=== PATIENT | male | born 1955 | race Caucasian/White ===

== ENCOUNTER 2016-12-07 06:09 | Inpatient (IN) ==
[2016-12-07] MEDS ORDERED: cefOXitin 2,000 MG in D5% in Water (Mini-Bag+) 100 ML IVPB ONE (06:47)
[2016-12-07] MEDS ORDERED: Albuterol 2.5 MG/3 ML NEBULIZER IH ONE (06:47)
[2016-12-07] MEDS ORDERED: *HR* Heparin 5,000 UNIT/ML VIAL SQ ONE (06:49)
[2016-12-07] MEDS ORDERED: *HR* Propofol 200 MG/20 ML VIAL IVP ONE ×2 (06:51→07:14)
[2016-12-07] MEDS ORDERED: *HR* FentaNYL (PF) 100 MCG/2 ML VIAL ONE ×2 (06:51→07:14)
[2016-12-07] MEDS ORDERED: Dexamethasone 4 MG/ML VIAL ONE (06:51)
[2016-12-07] MEDS ORDERED: *HR* Rocuronium Bromide 50 MG/5 ML VIAL ONE ×2 (06:51→07:14)
[2016-12-07] MEDS ORDERED: Lidocaine -MPF 2% 2 ML VIAL ONE (06:51)
[2016-12-07] MEDS ORDERED: Lidocaine -MPF 4% 5 ML AMPUL ONE (06:51)
[2016-12-07] MEDS ORDERED: Ondansetron 4 MG/2 ML VIAL ONE ×2 (06:51→07:14)
--- NOTE | 2016-12-07 06:59 | Anesthesia Evaluation PreOp ---
Date of Encounter: 12/07/16 Time of Encounter: 07:04 - Past History Planned Operation: Colostomy TReversal Cardiac History: HTN, Hyperlipidemia Pulmonary History: Former smoker (Quit 19 years ago), Asthma, COPD, KATELIN Dx CHILDCARE PROVIDER History: Denies Any Significant HX Other Medical History: Diabetes Type II, GERD, Other (Sigmoid resection for diverticulitis) Anesthesia History: No Prior Anesthetic Complications, Past Anesthesia (Cardiac Cath 2004,GB, R. Knee, Sigmoid colectomy,) Alcohol Use: none Drug use: none Medications and Allergies Albuterol Sulfate [Ventolin Hfa] 2 puff IH Q4H PRN 04/06/16 [History] Tiotropium [Spiriva] 18 mcg IH QAM 04/06/16 [History] Fluticasone Propionate Nasal [Flonase] 1 spr NS DAILY 07/06/16 [History] Multivitamin [One Daily Essential] 1 each PO DAILY 07/06/16 [History] Omeprazole [PriLOSEC] 20 mg PO DAILY 07/06/16 [History] Allergies No Known Allergies Allergy (Verified 07/06/16 07:51) - Meds/Allergy Pre-op Review Medications Reviewed: Yes Allergies Reviewed: Yes Beta Blockers on Current Med List: No Anesthesia Results - Labs Laboratory Tests 04/08/16 11/27/16 11/27/16 03:48 08:20 08:20 WBC 6.3 Hgb 15.2 Hct 46.2 Plt Count 239 INR 1.2 Sodium 144 Potassium 4.1 Chloride 108 Carbon Dioxide 30 H BUN 16 Creatinine 0.94 Stress 2004 no ischemia - Imaging EKG: image reviewed (SR, Poor R wave progression) Anesthesia Exam O2 Sat Height 1.83 m Height 1.83 m Weight 122.47 kg Weight 122.47 kg O2 Sat by Pulse Oximetry 91 Vital Signs Temp Pulse Resp BP Pulse Ox 99.0 F 88 18 134/81 91 L 12/07/16 06:28 12/07/16 06:28 12/07/16 06:28 12/07/16 06:28 12/07/16 06:28 Height: 6' Weight: 270# NPO (# of Hours): > 8 Hrs Pain Scale: 0 Pain Scale Used: Numeric (1 - 10) - HEENT Pupil (Motor): Pupils equal, EOMI Mallampati: II Teeth: Normal Oral Opening: Greater than 3 - CHILDCARE PROVIDER LOC: Oriented CHILDCARE PROVIDER Motor: Normal RUE, Normal LUE, Normal RLE, Normal LLE, Normal Face CHILDCARE PROVIDER Sensory: Normal: RUE, LUE, RLE, LLE, Face - Cardiac Rhythm: Regular Murmur: None JVD: No Carotid Bruit: No - Pulmonary Breath Sounds: bilateral Clear Respiratory Effort: Symmetrical Anesthesia Assess/Plan ASA Score: 3 Modified Stephanie Scale for Level of Consciousness: Cooperative, oriented, and tranquil Anesthetic Plan: General Autologous Blood: Yes Monitoring Plan: Standard Monitors Recovery Plan: PACU
[2016-12-07] MEDS ORDERED: Ringers Solution, Lactated 1,000 ML IVC SCH ×2 (07:00)
[2016-12-07] MEDS ORDERED: *HR* Midazolam HCl 2 MG/2 ML VIAL ONE (07:14)
[2016-12-07] MEDS ORDERED: Ketorolac 30 MG/ML VIAL ONE (07:14)
--- NOTE | 2016-12-07 07:33 | History & Physical Report ---
Date of Encounter: 12/07/16 Time of Encounter: 07:25 24 Hour HP Update - Instructions Instructions: If the History and Physical is less than 30 days old and was completed prior to A.M. admission and or procedure and has NOT been updated on calendar day of procedure please complete this update prior to performing procedure. - Update Patient reports changes in Medical Condition: No Changes in assessment/condition: No Changes in Medication: No Surgery Remains Indicated: Yes Consent for Planned Operative Procedure(s) Verified: Yes - Pre-Operative Checklist Prophylactic Antibiotic Ordered: Yes Home Medications Include Beta Shayy: No Is VTE Prophylaxis Indicated?: Yes
[2016-12-07] MEDS ORDERED: *HR* Promethazine 25 MG/ML VIAL IVP PRN ×2 (08:11→14:21)
[2016-12-07] MEDS ORDERED: *HR* HYDROmorphone (PF) 1 MG/ML SYRINGE IVP PRN (08:11)
[2016-12-07] MEDS ORDERED: Albuterol 2.5 MG/3 ML NEBULIZER IH PRN (08:11)
[2016-12-07] MEDS ORDERED: *HR* HYDROmorphone 2 MG/ML SYRINGE ONE ×2 (08:11→12:32)
[2016-12-07] MEDS ORDERED: Neostigmine Methylsulfate 3 MG/3 ML SYRINGE ONE (09:06)
[2016-12-07] MEDS ORDERED: Albumin Human 5% 25.0 GM/500 ML VIAL ONE (11:54)
--- NOTE | 2016-12-07 13:15 | Operative Note ---
Date of procedure: 12/07/16 Pre-op diagnosis: perforated diverticulitis Post-op diagnosis: same Procedure: Colostomy reversal, takedown splenic flexure Complications: none immediate Anesthesia: FANG Surgeon: Ashanti Fuchs Cart Driver: Nikki Christian Cart Driver Other: Adrian Calderon Estimated blood loss (cc): 200 IV fluids (cc): 3,400 Urine output (cc): 230 Specimen: colostomy, anastomotic rings Condition: stable Disposition: PACU Procedure in Detail: Patient was brought to the operating suite and placed supine on the operating table. Sign in was performed and everyone was in agreement. Anesthesia was induced and patient was endotracheally intubated by anesthesia without incident. An NG tube was placed by anesthesia. The patient was placed in lithotomy position with legs in yellowfin stirrups. Pascual catheter was placed by the circulating nurse. The colostomy opening was suture closed with a 2-0 silk pursestring stitch. The abdomen was prepped and draped in the usual sterile fashion. Timeout was performed again everyone was in agreement. A circular incision through the skin and the subcutaneous tissue around the colostomy was done with a 15 blade. We dissected the colostomy from the subcutaneous tissue down to the fascia circumferentially with the Bovie. The left colon at the colostomy was then from the rectus fascia with the Bovie. We then made a midline incision through the skin and the subcutaneous tissue with a 15 blade along the patient's previous scar. We dissected through the subcutaneous tissue to the anterior abdominal wall linea alba fascia with Bovie. Cultures are placed in either side of the fascia for retraction and the abdomen was entered with the Bovie. Adhesions between the omentum and the small bowel to the anterior abdominal wall were taken down with the Bovie and sharp Metzenbaums. The Bookwalter was placed for retraction. The colostomy where it was still attached at the fascia in several places was taken down with the Bovie and sharp Metzenbaum scissors until the colostomy and left colon was completely within the abdominal cavity. The left colon then was taken down off the left lateral abdominal sidewall at the white line of Toldt with the Bovie. The omentum was taken off the mid to distal transverse colon with the Bovie. We then took down the splenic flexure using gentle blunt dissection and Bovie dissection from a distal to proximal direction up to approximately the middle colic. There was adequate length of the left colon to reach the rectum. The Prolene placed on the rectal stump was identified and a right angle placed on this for retraction. Using the Bovie and a right angle the rectum was freed from the peritoneum with the Bovie and using gentle blunt dissection. Dr. Calderon came in to the OR and further freed up the posterior left lateral rectum and the mesocolic plane. A disposable pursestring stapler device was placed approximately 5 inches from the distal left colon. The distal left colon/ colostomy was then transected with heavy Metzenbaum scissors. Babcocks were placed on the end of the colon for retraction and the colon dilator where placed into the left colon, up to 29 mm. A 29 mm EEA stapler was then chosen to construct the anastomosis and the anvil was placed into the left colon and the pursestring stitch tied. The EEA stapler was placed in the anus into the rectum and the spike deployed. The anvil was then placed on the spike and the anastomosis constructed. Evaluation of the anastomotic rings revealed the rings were in circular continuity with no tears or breaks. The patient was placed in reverse Trendelenburg position and the pelvis filled with sterile saline. The left colon was then clamped with a noncrushing bowel clamp. Using a rigid sigmoidoscope placed in the anus and the distal left colon and rectum at the anastomosis was insufflated. There was leak. The irrigation was suctioned free from the abdomen and we are able to identify a pinhole leak in the left anterior lateral anastomosis. This was oversewn with 2-0 silk interrupted stitches and 3-0 silk Lembert stitches. The pelvis then was filled back with sterile saline covering the anastomosis. A 30 mL balloon Pascual catheter was placed in the anus and insufflated with air, there was no leak present. The air was allowed to be evacuated out of the rectum. The clamp was taken off the left colon. The abdomen was copiously irrigated with sterile saline. A 10 mm JOSE ANGEL drain was placed through the right lower quadrant after first incising the skin with an 11 blade and placed retrograde through the abdominal wall with the tonsil. The JOSE ANGEL drain was secured to the skin with a 2- 0 silk stitch. The JOSE ANGEL drain was placed distal to the anastomosis and anterior to the rectum within the pelvis. The NG tube was palpated to be within appropriate position in the stomach. The omentum was brought down into the pelvis anterior to the anastomosis. Kocur's are placed on the left abdominal wall fascia for retraction. The rectus fascia was reapproximated at the colostomy site with #1 nylon loop PDS running stitch. Kocur's are placed in either side of the linea alba fascia for retraction. The midline abdominal wall was closed with 2 separate non-looped #1 PDS running stitch stitches meeting in the middle. The subcutaneous tissue was copiously irrigated with sterile saline. 3-0 Vicryl stitches were placed subcutaneously to reapproximate the wound. The skin was closed with peter. The colostomy site was copiously irrigated with sterile saline. The subcutaneous tissue was reapproximated with 3-0 Vicryl stitches. Widely placed skin peter were used to close the skin. The middle of the wound was packed with quarter inch iodoform packing. A 4 x 4 gauze and Medipore tape were applied as dressings. A drain sponge was placed at the right lower quadrant JOSE ANGEL drain site. All lap and instrument counts were correct at the end of the case. The patient tolerated the procedure well and was taken to PACU in stable condition after being extubated in the OR by anesthesia. The Pascual catheter and NG tube remained with the patient.
--- NOTE | 2016-12-07 13:42 | Anesthesia Evaluation Post Op ---
Date of Encounter: 12/07/16 Time of Encounter: 13:42 - Vital Signs Vital Signs: Vital Signs/O2 Sat, Most Current Temp Pulse Resp BP Pulse Ox 99.0 F 96 18 153/77 96 12/07/16 06:28 12/07/16 13:38 12/07/16 13:38 12/07/16 13:38 12/07/16 13:38 - Lungs Lungs: Clear Ascult./Percussion - Airway Airway: Non-obstructed - Cardiovascular Regular Rate - Mental Status Mental Status: Alert & Oriented, Answers Appropriately - Pain Pain Scale: 4 Pain Scale used: Numeric (1 - 10) - Nausea Vomiting Nausea Vomiting: Not Present - Hydration Hydration: NPO, Pascual catheter - Discharge PostOp Status: Transfer Patient to floor
[2016-12-07] MEDS ORDERED: Naloxone 0.4 MG/ML INJ IVP PRN (14:21)
[2016-12-07] MEDS ORDERED: Ondansetron 4 MG/2 ML VIAL IVP PRN (14:21)
[2016-12-07] MEDS: Pantoprazole 40 MG VIAL IVP SCH (14:46)
[2016-12-07] MEDS: *HR* HYDROmorphone 20 MG/20 ML PCA IVC PRN (14:46)
[2016-12-07] MEDS: 0.9 % Sodium Chloride 1,000 ML IVC SCH ×2 (14:46→23:25)
[2016-12-07] MEDS: Piperacillin/Tazobactam 3.375 GM in D5% in Water (Mini-Bag+) 100 ML IVPB SCH ×3 (14:49→23:32)
[2016-12-07] MEDS ORDERED: Acetaminophen IV 1,000 MG/100 ML INFUS..BTL IVPB SCH (15:00)
[2016-12-07] MEDS: *HR* Metoprolol 5 MG/5 ML VIAL IVP SCH (18:00)
[2016-12-07] MEDS: Acetaminophen IV 1,000 MG/100 ML INFUS..BTL IVPB SCH (21:11)
[2016-12-08] MEDS: *HR* Metoprolol 5 MG/5 ML VIAL IVP SCH ×5 (00:12→23:55)
[2016-12-08 05:06] LABS: Basophils % 0.1 %; Hematocrit 42.4 % (37.5-50.1); Hemoglobin 14.6 g/dL (12.9-16.9); Immature Granulocytes % 0.6 % (0-4); Lymphocytes # 1.6 K/mcL (0.6-4.6); Lymphocytes % 10.3 %; Mean Corpuscular HGB Conc 34.4 g/dL (31.6-35.5); Mean Corpuscular Hemoglobin 32.3 pg (28.0-33.3); Mean Corpuscular Volume 93.8 fL (83.0-100.0); Mean Platelet Volume 10.8 fL (9.4-12.4); Monocytes # 1.4 K/mcL (0.0-1.3); Monocytes % 9.2 %; Neutrophils # 12.1 K/mcL (1.6-8.9); Platelet Count 207 K/mcL (140-400); Red Blood Count 4.52 M/mcL (4.19-5.50); Red Cell Distribution Width 12.4 % (11.5-14.5); Segmented Neutrophils % 79.8 %
[2016-12-08 05:21] LABS: BUN/Creatinine Ratio 18 (6-26); Blood Urea Nitrogen 16 mg/dL (8-26); Calcium 8.4 mg/dL (8.6-10.8); Carbon Dioxide 21 mEq/L (19-29); Chloride 109 mEq/L (98-109); Glucose 139 mg/dL (70-99); Magnesium 1.9 mg/dL (1.6-2.6); Osmolality,Calculated 291 (280-300); Phosphorous 2.8 mg/dL (2.3-4.7); Potassium 4.2 mEq/L (3.5-4.5); Sodium 139 mEq/L (136-145); eGFR For African Americans > 60 (> 60); eGFR For Non-African Americans > 60 (> 60)
[2016-12-08] MEDS: 0.9 % Sodium Chloride 1,000 ML IVC SCH ×2 (07:48→15:22)
[2016-12-08] MEDS: Pantoprazole 40 MG VIAL IVP SCH (07:48)
[2016-12-08] MEDS: Piperacillin/Tazobactam 3.375 GM in D5% in Water (Mini-Bag+) 100 ML IVPB SCH (07:50)
--- NOTE | 2016-12-08 08:52 | General Surgery Progress Note ---
<Deniz Nixon - Last Filed: 12/08/16 11:43> Date of Encounter: 12/08/16 Time of Encounter: 07:20 - Assessment and Plan (1) S/P colostomy takedown Current Visit: Yes Status: Acute S/p Colostomy takedown 12/07/[address] Fuchs. NPO except ice chips until bowl function returns. Continue scheduled acetaminophen. 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 Continue Zosyn Continue IV fluids at 120ml/hr until patient taking by mouth We will continue to monitor patient's vitals and labs. Discontinue hope catheter Increase activity as tolerated Daily wound care (2) Diverticulosis Current Visit: Yes Status: Chronic History of diverticulitis with perforation in March 2016. s/p Ki's procedure at that time, underwent colostomy take down yesterday by Dr. Fuchs. (3) Leukocytosis Current Visit: No Status: Acute WBC 15.2. Continue Zosyn. Repeat labs in the am Qualifiers: Leukocytosis type: unspecified Qualified Code(s): D72.829 - Elevated white blood cell count, unspecified (4) COPD (chronic obstructive pulmonary disease) Current Visit: No Status: Chronic Continue spiriva. Qualifiers: COPD type: unspecified COPD Qualified Code(s): J44.9 - Chronic obstructive pulmonary disease, unspecified (5) Gastroesophageal reflux disease Current Visit: No Status: Chronic Continue Protonix 40mg IVP daily. Qualifiers: Esophagitis presence: esophagitis presence not specified Qualified Code(s) : K21.9 - Gastro-esophageal reflux disease without esophagitis (6) Hypertension Current Visit: No Status: Chronic BP controlled at this time Continue Lopressor 2.5mg Q6H. Hydralazine prn. No home medication listed for hypertension. Qualifiers: Hypertension type: essential hypertension (7) DVT prophylaxis Current Visit: No Status: Acute Start heparin 5,000 units SQ twice daily for DVT prophylaxis Subjective Patient reports: no new complaints, feels better, still having pain (post-op), no flatus, no bowel movement, afebrile Objective Vital Signs - Last 8 Hours Temp Pulse Resp BP Pulse Ox 12/08/16 07:53 95 12/08/16 06:53 98.6 F 84 16 126/75 95 12/08/16 04:14 98.7 F 88 16 147/77 95 Intake and Output 12/07/16 12/08/16 12/08/16 23:59 07:59 15:59 Intake Total 1100 / 1100 1100 / 1100 Output Total 370 / 370 510 / 510 Balance 730 / 730 590 / 590 Intake: IV Fluids 1100 / 1100 1100 / 1100 0.9 % Sodium Chloride 1, 1000 / 1000 1000 / 1000 000 ML @ 120 mls/hr IVC . Q8H20M NENA Rx#:[id number] Zosyn 3.375 GM In 100 / 100 100 / 100 Dextrose 5% (Minibag+) 100 ML 100 ML @ 25 mls/hr IVPB Q8HR NENA Rx#: [id number] Oral 0 / 0 0 / 0 Output: Catheter 350 / 350 450 / 450 Gastric Drainage 0 / 0 Wound Drainage 20 / 20 60 / 60 Right Abdomen 20 / 20 60 / 60 Other: Meal NPO dinner Weight 122.4 kg Blood Glucose* 180 119 Patient Weight 12/08/16 23:59 Weight 122.4 kg - General physical appearance well developed, well nourished, no distress - Eyes normal ocular movement - ENT normal mucosa, no congestion, atraumatic, normocephalic - Neck Neck exam: trachea midline - Respiratory normal respiratory effort, clear to auscultation - Cardiovascular Cardiovascular exam: Present: RRR - Abdomen Abdomen: Present: bowel sounds present (hypoactive), soft, tender (post-op- expected), wound (JOSE ANGEL drain to bulb suction RLQ with serous sang. drainage noted ; LUQ old colostomy site with packing noted, small amount of serousang. drainage noted.) - Incision Incision: Present: intact (midline C/D/I, LUQ with small amount serousang. drainage noted.) - Genitourinary other (hope catheter to SD with clear, yellow urine) - Integumentary no rash - Neurologic CN 2-12 grossly intact - Psychiatric oriented to time, oriented to person, oriented to place, speech is normal, memory intact - Labs 12/08/16 04:43 12/08/16 04:43 Diabetes panel 12/08/16 Range/Units 04:43 Sodium 139 (136-145) mEq/L Potassium 4.2 (3.5-4.5) mEq/L Chloride 109 (98-109) mEq/L Carbon Dioxide 21 (19-29) mEq/L BUN 16 (8-26) mg/dL Creatinine 0.90 (0.72-1.25) mg/dL Glucose 139 H (70-99) mg/dL Calcium 8.4 L (8.6-10.8) mg/dL Calcium panel 12/08/16 Range/Units 04:43 Calcium 8.4 L (8.6-10.8) mg/dL Phosphorus 2.8 (2.3-4.7) mg/dL Pituitary panel 12/08/16 Range/Units 04:43 Sodium 139 (136-145) mEq/L Potassium 4.2 (3.5-4.5) mEq/L Chloride 109 (98-109) mEq/L Carbon Dioxide 21 (19-29) mEq/L BUN 16 (8-26) mg/dL Creatinine 0.90 (0.72-1.25) mg/dL Glucose 139 H (70-99) mg/dL Calcium 8.4 L (8.6-10.8) mg/dL Adrenal panel 12/08/16 Range/Units 04:43 Sodium 139 (136-145) mEq/L Potassium 4.2 (3.5-4.5) mEq/L Chloride 109 (98-109) mEq/L Carbon Dioxide 21 (19-29) mEq/L BUN 16 (8-26) mg/dL Creatinine 0.90 (0.72-1.25) mg/dL Glucose 139 H (70-99) mg/dL Calcium 8.4 L (8.6-10.8) mg/dL - VTE Documentation of Mechanical Device: Intermittent pneumatic compression device Consult Discharge Plan - Plan Referrals: Zakiya Franco, [employer]ANT [Primary Care Provider] - <Ashanti Fuchs - Last Filed: 12/08/16 13:52> Time of Encounter: 14:45 - Assessment and Plan (1) S/P colostomy takedown Current Visit: Yes Status: Acute decrease ivf to 100cc/hr dc hope OOB to chair BID ostomy site daily packing (2) DVT prophylaxis Current Visit: No Status: Acute (3) Leukocytosis Current Visit: No Status: Acute zosyn was only for 3 doses post op Qualifiers: Leukocytosis type: unspecified Qualified Code(s): D72.829 - Elevated white blood cell count, unspecified (4) Gastroesophageal reflux disease Current Visit: No Status: Chronic Qualifiers: Esophagitis presence: esophagitis presence not specified Qualified Code(s) : K21.9 - Gastro-esophageal reflux disease without esophagitis Subjective Narrative: no nausea no flatus pain controlled with fiscal manager Objective Vital Signs - Last 8 Hours Temp Pulse Resp BP Pulse Ox 12/08/16 10:33 98.3 F 60 16 130/76 94 L 12/08/16 07:53 95 12/08/16 06:53 98.6 F 84 16 126/75 95 Intake and Output 12/07/16 12/08/16 12/08/16 23:59 07:59 15:59 Intake Total 1200 / 1200 1100 / 1100 100 / 100 Output Total 370 / 370 510 / 510 575 / 575 Balance 830 / 830 590 / 590 -475 / -475 Intake: IV Fluids 1200 / 1200 1100 / 1100 100 / 100 0.9 % Sodium Chloride 1, 1000 / 1000 1000 / 1000 000 ML @ 120 mls/hr IVC . Q8H20M NENA Rx#:[id number] Ofirmev 1,000 mg In 100 100 / 100 100 / 100 ml @ 400 mls/hr IVPB TID NENA Rx#:[id number] Zosyn 3.375 GM In 100 / 100 100 / 100 Dextrose 5% (Minibag+) 100 ML 100 ML @ 25 mls/hr IVPB Q8HR NENA Rx#: [id number] Oral 0 / 0 0 / 0 0 / 0 Output: Catheter 350 / 350 450 / 450 375 / 375 Gastric Drainage 0 / 0 200 / 200 Wound Drainage 20 / 20 60 / 60 0 / 0 Right Abdomen 20 / 20 60 / 60 0 / 0 Other: Meal NPO dinner NPO Percent of Meal Consumed 0% Weight 122.4 kg Blood Glucose* 180 119 106 Patient Weight 12/08/16 23:59 Weight 122.4 kg - General physical appearance well developed, well nourished, no distress, obese - Eyes PERRL, normal ocular movement - ENT normal mucosa, atraumatic, normocephalic - Neck Neck exam: trachea midline - Respiratory clear to auscultation - Cardiovascular Cardiovascular exam: Present: RRR - Abdomen Abdomen: Present: bowel sounds present, soft, tender - Genitourinary other - Integumentary no rash, no growths - Neurologic CN 2-12 grossly intact - Musculoskeletal normal posture - Psychiatric oriented to time, oriented to person, memory intact - Labs 12/08/16 04:43 12/08/16 04:43 Short CBC 12/08/16 Range/Units 04:43 WBC 15.2 H (4.3-11.1) K/mcL Hgb 14.6 (12.9-16.9) g/dL Hct 42.4 (37.5-50.1) % Plt Count 207 (140-400) K/mcL Neutrophils # 12.1 H (1.6-8.9) K/mcL BMP 12/08/16 Range/Units 04:43 Sodium 139 (136-145) mEq/L Potassium 4.2 (3.5-4.5) mEq/L Chloride 109 (98-109) mEq/L Carbon Dioxide 21 (19-29) mEq/L BUN 16 (8-26) mg/dL Creatinine 0.90 (0.72-1.25) mg/dL Glucose 139 H (70-99) mg/dL Calcium 8.4 L (8.6-10.8) mg/dL Vital Signs Temp Pulse Resp BP Pulse Ox 12/08/16 10:33 98.3 F 60 16 130/76 94 L 12/08/16 07:53 95 12/08/16 06:53 98.6 F 84 16 126/75 95 12/08/16 04:14 98.7 F 88 16 147/77 95 12/08/16 00:19 98.7 F 79 16 126/69 12/07/16 20:55 98.7 F 81 16 124/74 96 12/07/16 17:10 98.9 F 81 15 112/45 93 L 12/07/16 16:10 98.5 F 88 15 119/70 96 12/07/16 15:10 98.6 F 78 15 134/80 93 L 12/07/16 14:40 98.6 F 79 15 133/79 93 L 12/07/16 14:10 98.3 F 78 16 147/82 95 Intake and Output 12/07/16 12/08/16 12/08/16 23:59 07:59 15:59 Intake Total 1200 / 1200 1100 / 1100 100 / 100 Output Total 370 / 370 510 / 510 575 / 575 Balance 830 / 830 590 / 590 -475 / -475 Intake: IV Fluids 1200 / 1200 1100 / 1100 100 / 100 0.9 % Sodium Chloride 1, 1000 / 1000 1000 / 1000 000 ML @ 120 mls/hr IVC . Q8H20M NENA Rx#:[id number] Ofirmev 1,000 mg In 100 100 / 100 100 / 100 ml @ 400 mls/hr IVPB TID NENA Rx#:[id number] Zosyn 3.375 GM In 100 / 100 100 / 100 Dextrose 5% (Minibag+) 100 ML 100 ML @ 25 mls/hr IVPB Q8HR NENA Rx#: [id number] Oral 0 / 0 0 / 0 0 / 0 Output: Catheter 350 / 350 450 / 450 375 / 375 Gastric Drainage 0 / 0 200 / 200 Wound Drainage 20 / 20 60 / 60 0 / 0 Right Abdomen 20 / 20 60 / 60 0 / 0 Other: Meal NPO dinner NPO Percent of Meal Consumed 0% Weight 122.4 kg Blood Glucose* 180 119 106 Patient Weight 12/08/16 23:59 Weight 122.4 kg
[2016-12-08] MEDS: Acetaminophen IV 1,000 MG/100 ML INFUS..BTL IVPB SCH ×3 (09:27→20:06)
[2016-12-08] MEDS: Tiotropium 18 MCG inhalation IH SCH (10:24)
[2016-12-08] MEDS: *HR* Heparin 5,000 UNIT/ML VIAL SQ SCH (17:51)
[2016-12-08] MEDS: *HR* HYDROmorphone 20 MG/20 ML PCA IVC PRN (23:05)
[2016-12-09] MEDS: 0.9 % Sodium Chloride 1,000 ML IVC SCH ×3 (02:16→21:51)
[2016-12-09] MEDS: *HR* Metoprolol 5 MG/5 ML VIAL IVP SCH ×3 (06:15→17:36)
[2016-12-09] MEDS: *HR* Heparin 5,000 UNIT/ML VIAL SQ SCH ×2 (06:16→17:37)
[2016-12-09 06:33] LABS: Basophils % 0.3 %; Eosinophils # 0.1 K/mcL (0.0-0.6); Eosinophils % 0.9 %; Hemoglobin 14.3 g/dL (12.9-16.9); Immature Granulocytes % 0.4 % (0-4); Lymphocytes # 1.7 K/mcL (0.6-4.6); Lymphocytes % 12.9 %; Mean Corpuscular HGB Conc 33.3 g/dL (31.6-35.5); Mean Corpuscular Hemoglobin 31.9 pg (28.0-33.3); Mean Platelet Volume 11.1 fL (9.4-12.4); Monocytes # 1.3 K/mcL (0.0-1.3); Monocytes % 9.7 %; Neutrophils # 9.8 K/mcL (1.6-8.9); Platelet Count 180 K/mcL (140-400); Red Blood Count 4.48 M/mcL (4.19-5.50); Red Cell Distribution Width 12.5 % (11.5-14.5); Segmented Neutrophils % 75.8 %
[2016-12-09 06:48] LABS: BUN/Creatinine Ratio 18 (6-26); Blood Urea Nitrogen 14 mg/dL (8-26); Calcium 8.4 mg/dL (8.6-10.8); Carbon Dioxide 23 mEq/L (19-29); Chloride 108 mEq/L (98-109); Glucose 82 mg/dL (70-99); Osmolality,Calculated 288 (280-300); Potassium 3.6 mEq/L (3.5-4.5); Sodium 139 mEq/L (136-145); eGFR For African Americans > 60 (> 60); eGFR For Non-African Americans > 60 (> 60)
[2016-12-09] MEDS: Tiotropium 18 MCG inhalation IH SCH (07:51)
[2016-12-09] MEDS: Pantoprazole 40 MG VIAL IVP SCH (08:19)
[2016-12-09] MEDS: Acetaminophen IV 1,000 MG/100 ML INFUS..BTL IVPB SCH ×3 (08:30→21:51)
--- NOTE | 2016-12-09 09:29 | General Surgery Progress Note ---
<Deniz Nixon - Last Filed: 12/09/16 10:22> Date of Encounter: 12/09/16 Time of Encounter: 09:29 - Assessment and Plan (1) S/P colostomy takedown Current Visit: Yes Status: Acute POD#2 Colostomy takedown 12/07/[address] Fuchs. NPO except ice chips/popsicle until bowl function returns. Continue scheduled acetaminophen. Continue Dilaudid as needed for pain- WATERPROOFING SUPERVISOR Continue Zofran and Phenergan as needed for nausea. Continue IV fluids at 100ml/hr until patient taking by mouth We will continue to monitor patient's vitals and labs. Increase activity as tolerated, up to chair at least twice daily. Daily wound care with packing of ostomy site. (2) Diverticulosis Current Visit: Yes Status: Chronic History of diverticulitis with perforation in March 2016. s/p Ki's procedure at that time, underwent colostomy take down yesterday by Dr. Fuchs. (3) Leukocytosis Current Visit: No Status: Acute WBC 15.2 >13 Zosyn dc'd on 12/08/16. Repeat labs in the am Qualifiers: Leukocytosis type: unspecified Qualified Code(s): D72.829 - Elevated white blood cell count, unspecified (4) COPD (chronic obstructive pulmonary disease) Current Visit: No Status: Chronic Continue incentive spirometry every hour while awake. Continue spiriva. Qualifiers: COPD type: unspecified COPD Qualified Code(s): J44.9 - Chronic obstructive pulmonary disease, unspecified (5) Gastroesophageal reflux disease Current Visit: No Status: Chronic Continue Protonix 40mg IVP daily. Qualifiers: Esophagitis presence: esophagitis presence not specified Qualified Code(s) : K21.9 - Gastro-esophageal reflux disease without esophagitis (6) Hypertension Current Visit: No Status: Chronic BP controlled at this time Continue Lopressor 2.5mg Q6H. Hydralazine prn. No home medication listed for hypertension. Qualifiers: Hypertension type: essential hypertension (7) DVT prophylaxis Current Visit: No Status: Acute Heparin 5,000 units SQ twice daily for DVT prophylaxis Subjective Patient reports: no new complaints, feels better, pain is less (controlled with beading installer), no flatus, no bowel movement, nausea, afebrile Objective Vital Signs - Last 8 Hours Temp Pulse Resp BP Pulse Ox 12/09/16 07:05 94 L 12/09/16 06:42 99.2 F 83 16 139/83 94 L 12/09/16 03:48 97.6 F 89 14 153/74 93 L Intake and Output 12/08/16 12/09/16 12/09/16 23:59 07:59 15:59 Intake Total 200 / 200 1000 / 1000 706 / 706 Output Total 495 / 495 290 / 290 Balance -295 / -295 710 / 710 706 / 706 Intake: IV Fluids 200 / 200 1000 / 1000 706 / 706 0.9 % Sodium Chloride 1, 1000 / 1000 606 / 606 000 ML @ 100 mls/hr IVC . Q10H NENA Rx#:[id number] Ofirmev 1,000 mg In 100 200 / 200 100 / 100 ml @ 400 mls/hr IVPB TID NENA Rx#:[id number] Oral 0 / 0 Output: Urine 225 / 225 0 / 0 Gastric Drainage 200 / 200 250 / 250 Wound Drainage 70 / 70 40 / 40 Right Abdomen 70 / 70 40 / 40 Other: Meal npo Weight 122.4 kg Blood Glucose* 82 76 Patient Weight 12/09/16 23:59 Weight 122.4 kg - General physical appearance well developed, well nourished, no distress - Eyes normal ocular movement - ENT normal mucosa, no congestion - Neck Neck exam: trachea midline - Respiratory normal respiratory effort, clear to auscultation - Cardiovascular Cardiovascular exam: Present: RRR - Abdomen Abdomen: Present: soft, tender (expect post-op), wound (JOSE ANGEL drain to bulb suction RLQ with serous sang. drainage noted; LUQ old colostomy site with packing noted, small amount of serousang. drainage noted.)). Absent: bowel sounds present - Incision Incision: Present: intact ((midline C/D/I, LUQ with small amount serousang. drainage noted.)) - Integumentary no rash - Neurologic CN 2-12 grossly intact - Psychiatric oriented to time, oriented to person, oriented to place, speech is normal, memory intact - Labs 12/09/16 04:56 12/09/16 04:56 Diabetes panel 12/09/16 Range/Units 04:56 Sodium 139 (136-145) mEq/L Potassium 3.6 (3.5-4.5) mEq/L Chloride 108 (98-109) mEq/L Carbon Dioxide 23 (19-29) mEq/L BUN 14 (8-26) mg/dL Creatinine 0.78 (0.72-1.25) mg/dL Glucose 82 (70-99) mg/dL Calcium 8.4 L (8.6-10.8) mg/dL Calcium panel 12/09/16 Range/Units 04:56 Calcium 8.4 L (8.6-10.8) mg/dL Pituitary panel 12/09/16 Range/Units 04:56 Sodium 139 (136-145) mEq/L Potassium 3.6 (3.5-4.5) mEq/L Chloride 108 (98-109) mEq/L Carbon Dioxide 23 (19-29) mEq/L BUN 14 (8-26) mg/dL Creatinine 0.78 (0.72-1.25) mg/dL Glucose 82 (70-99) mg/dL Calcium 8.4 L (8.6-10.8) mg/dL Adrenal panel 12/09/16 Range/Units 04:56 Sodium 139 (136-145) mEq/L Potassium 3.6 (3.5-4.5) mEq/L Chloride 108 (98-109) mEq/L Carbon Dioxide 23 (19-29) mEq/L BUN 14 (8-26) mg/dL Creatinine 0.78 (0.72-1.25) mg/dL Glucose 82 (70-99) mg/dL Calcium 8.4 L (8.6-10.8) mg/dL - VTE Documentation of Mechanical Device: Intermittent pneumatic compression device Consult Discharge Plan - Plan Referrals: Zakiya Franco, GROUTMAN [Primary Care Provider] - <Ashanti Fuchs - Last Filed: 12/09/16 13:41> - Assessment and Plan (1) S/P colostomy takedown Current Visit: Yes Status: Acute continue prn pain control ok ice chips continue ngt until return of bowel function good uop continue ivf hydration OOB to chair BID, walk halls (2) DVT prophylaxis Current Visit: No Status: Acute (3) Leukocytosis Current Visit: No Status: Acute post op wbc - decreasing, likely related to surgical intervention, follow Qualifiers: Leukocytosis type: unspecified Qualified Code(s): D72.829 - Elevated white blood cell count, unspecified (4) Gastroesophageal reflux disease Current Visit: No Status: Chronic Qualifiers: Esophagitis presence: esophagitis presence not specified Qualified Code(s) : K21.9 - Gastro-esophageal reflux disease without esophagitis Subjective Narrative: pain controlled with beading installer no nausea or emesis no flatus or bm Objective Vital Signs - Last 8 Hours Temp Pulse Resp BP Pulse Ox 12/09/16 10:39 93 L 12/09/16 10:35 94 L 12/09/16 10:17 98.5 F 82 16 143/82 93 L 12/09/16 06:42 99.2 F 83 16 139/83 94 L Intake and Output 12/08/16 12/09/16 12/09/16 23:59 07:59 15:59 Intake Total 200 / 200 1000 / 1000 1100 / 1100 Output Total 495 / 495 290 / 290 20 / 20 Balance -295 / -295 710 / 710 1080 / 1080 Intake: IV Fluids 200 / 200 1000 / 1000 1100 / 1100 0.9 % Sodium Chloride 1, 1000 / 1000 1000 / 1000 000 ML @ 100 mls/hr IVC . Q10H NENA Rx#:[id number] Ofirmev 1,000 mg In 100 200 / 200 100 / 100 ml @ 400 mls/hr IVPB TID NENA Rx#:[id number] Oral 0 / 0 Output: Urine 225 / 225 0 / 0 0 / 0 Gastric Drainage 200 / 200 250 / 250 0 / 0 Wound Drainage 70 / 70 40 / 40 20 / 20 Right Abdomen 70 / 70 40 / 40 20 / 20 Other: Meal npo Weight 122.4 kg Blood Glucose* 82 76 84 Patient Weight 12/09/16 23:59 Weight 122.4 kg - General physical appearance well developed, well nourished, no distress, obese - Eyes PERRL, normal ocular movement - ENT dry mucosa, atraumatic, normocephalic - Neck Neck exam: trachea midline - Respiratory clear to auscultation - Cardiovascular Cardiovascular exam: Present: RRR - Abdomen Abdomen: Present: soft, tender (expect post-op tenderness). Absent: bowel sounds present - Integumentary no rash, no growths - Neurologic CN 2-12 grossly intact - Musculoskeletal normal posture - Psychiatric oriented to time, oriented to person, oriented to place, speech is normal, memory intact - Labs 12/09/16 04:56 12/09/16 04:56 Short CBC 12/09/16 Range/Units 04:56 WBC 13.0 H (4.3-11.1) K/mcL Hgb 14.3 (12.9-16.9) g/dL Hct 43.0 (37.5-50.1) % Plt Count 180 (140-400) K/mcL Neutrophils # 9.8 H (1.6-8.9) K/mcL BMP 12/09/16 Range/Units 04:56 Sodium 139 (136-145) mEq/L Potassium 3.6 (3.5-4.5) mEq/L Chloride 108 (98-109) mEq/L Carbon Dioxide 23 (19-29) mEq/L BUN 14 (8-26) mg/dL Creatinine 0.78 (0.72-1.25) mg/dL Glucose 82 (70-99) mg/dL Calcium 8.4 L (8.6-10.8) mg/dL Vital Signs Temp Pulse Resp BP Pulse Ox 12/09/16 10:39 93 L 12/09/16 10:35 94 L 12/09/16 10:17 98.5 F 82 16 143/82 93 L 12/09/16 06:42 99.2 F 83 16 139/83 94 L 12/09/16 03:48 97.6 F 89 14 153/74 93 L 12/08/16 23:17 98.1 F 70 14 153/80 94 L 12/08/16 18:36 98.5 F 70 14 131/71 93 L 12/08/16 14:39 97.7 F 66 18 128/74 94 L Intake and Output 12/08/16 12/09/16 12/09/16 23:59 07:59 15:59 Intake Total 200 / 200 1000 / 1000 1100 / 1100 Output Total 495 / 495 290 / 290 20 / 20 Balance -295 / -295 710 / 710 1080 / 1080 Intake: IV Fluids 200 / 200 1000 / 1000 1100 / 1100 0.9 % Sodium Chloride 1, 1000 / 1000 1000 / 1000 000 ML @ 100 mls/hr IVC . Q10H NENA Rx#:[id number] Ofirmev 1,000 mg In 100 200 / 200 100 / 100 ml @ 400 mls/hr IVPB TID NENA Rx#:[id number] Oral 0 / 0 Output: Urine 225 / 225 0 / 0 0 / 0 Gastric Drainage 200 / 200 250 / 250 0 / 0 Wound Drainage 70 / 70 40 / 40 20 / 20 Right Abdomen 70 / 70 40 / 40 20 / 20 Other: Meal npo NPO Weight 122.4 kg Blood Glucose* 82 76 84 Patient Weight 12/09/16 23:59 Weight 122.4 kg - Attending Attestation I examined this patient and my medical decision-making was reviewed with the PIN MACHINE TENDER/PA/Advanced Practice Nurse/Resident Physician. I agree with the documented findings, disposition and treatment plan as described except to the extent set forth below.
[2016-12-10] MEDS: *HR* Metoprolol 5 MG/5 ML VIAL IVP SCH ×5 (00:50→23:37)
[2016-12-10 04:33] LABS: Basophils % 0.3 %; Eosinophils # 0.2 K/mcL (0.0-0.6); Eosinophils % 1.4 %; Hematocrit 44.5 % (37.5-50.1); Immature Granulocytes % 0.6 % (0-4); Lymphocytes # 1.8 K/mcL (0.6-4.6); Lymphocytes % 15.1 %; Mean Corpuscular HGB Conc 33.7 g/dL (31.6-35.5); Mean Corpuscular Hemoglobin 31.8 pg (28.0-33.3); Mean Corpuscular Volume 94.5 fL (83.0-100.0); Mean Platelet Volume 10.3 fL (9.4-12.4); Monocytes # 1.2 K/mcL (0.0-1.3); Monocytes % 10.1 %; Neutrophils # 8.7 K/mcL (1.6-8.9); Platelet Count 212 K/mcL (140-400); Red Blood Count 4.71 M/mcL (4.19-5.50); Red Cell Distribution Width 12.3 % (11.5-14.5); Segmented Neutrophils % 72.5 %
[2016-12-10 04:44] LABS: BUN/Creatinine Ratio 17 (6-26); Blood Urea Nitrogen 14 mg/dL (8-26); Calcium 8.5 mg/dL (8.6-10.8); Carbon Dioxide 22 mEq/L (19-29); Chloride 108 mEq/L (98-109); Glucose 97 mg/dL (70-99); Osmolality,Calculated 288 (280-300); Potassium 3.9 mEq/L (3.5-4.5); Sodium 139 mEq/L (136-145); eGFR For African Americans > 60 (> 60); eGFR For Non-African Americans > 60 (> 60)
[2016-12-10] MEDS: *HR* Heparin 5,000 UNIT/ML VIAL SQ SCH ×2 (06:11→17:50)
[2016-12-10] MEDS: 0.9 % Sodium Chloride 1,000 ML IVC SCH ×2 (07:31→17:02)
[2016-12-10] MEDS: Pantoprazole 40 MG VIAL IVP SCH (07:31)
[2016-12-10] MEDS: Acetaminophen IV 1,000 MG/100 ML INFUS..BTL IVPB SCH ×3 (07:31→20:27)
[2016-12-10] MEDS: Tiotropium 18 MCG inhalation IH SCH (08:16)
[2016-12-10] MEDS: *HR* HYDROmorphone 20 MG/20 ML PCA IVC PRN (10:17)
--- NOTE | 2016-12-10 13:55 | General Surgery Progress Note ---
Date of Encounter: 12/10/16 Time of Encounter: 13:53 - Assessment and Plan (1) S/P colostomy takedown Current Visit: Yes Status: Acute POD #3 Colostomy Reversal NPO with NG tube to LIWS- bowel rest Await return of bowel function IV fluids Supportive care and pain control- ALMOND HULLER pump Repeat labs in the am Daily dressing changes to midline Increase activity- ambulate in hallways with assistance (2) Leukocytosis Current Visit: No Status: Acute Improved- 13>11.9 Qualifiers: Leukocytosis type: unspecified Qualified Code(s): D72.829 - Elevated white blood cell count, unspecified (3) COPD (chronic obstructive pulmonary disease) Current Visit: No Status: Chronic Stable without acute exacerbation Continue home dose of Spiriva Will monitor and adjust treatment regimen as necessary Incentive Spirometer every 1 hour while awake Qualifiers: COPD type: unspecified COPD Qualified Code(s): J44.9 - Chronic obstructive pulmonary disease, unspecified (4) Gastroesophageal reflux disease Current Visit: No Status: Chronic Continue PPI therapy daily Qualifiers: Esophagitis presence: esophagitis presence not specified Qualified Code(s) : K21.9 - Gastro-esophageal reflux disease without esophagitis (5) Hyperlipidemia Current Visit: No Status: Chronic Qualifiers: Hyperlipidemia type: unspecified Qualified Code(s): E78.5 - Hyperlipidemia , unspecified (6) Essential hypertension Current Visit: No Status: Chronic BP elevated today Increase Metoprolol to 5mg IV every 6 hours Will continue to monitor and adjust treatment regimen as necessary (7) DVT prophylaxis Current Visit: No Status: Acute Continue heparin 5,000 units SQ twice daily for DVT prophylaxis Subjective Patient reports: no new complaints, still having pain, pain is less, voiding w/ o difficulty, no flatus, no bowel movement, afebrile Objective Vital Signs - Last 8 Hours Temp Pulse Resp BP Pulse Ox 12/10/16 10:46 98.3 F 80 16 151/91 93 L 12/10/16 10:41 93 L 12/10/16 08:18 16 93 L 12/10/16 07:44 98.3 F 81 16 148/81 91 L 12/10/16 07:08 94 L Intake and Output 12/09/16 12/10/16 12/10/16 23:59 07:59 15:59 Intake Total 1100 / 1100 1100 / 1100 505 / 505 Output Total 290 / 290 770 / 770 955 / 955 Balance 810 / 810 330 / 330 -450 / -450 Intake: IV Fluids 1100 / 1100 1100 / 1100 505 / 505 0.9 % Sodium Chloride 1, 1000 / 1000 1000 / 1000 505 / 505 000 ML @ 100 mls/hr IVC . Q10H NENA Rx#:[id number] Ofirmev 1,000 mg In 100 100 / 100 100 / 100 ml @ 400 mls/hr IVPB TID NENA Rx#:[id number] Oral 0 / 0 0 / 0 Output: Urine 200 / 200 200 / 200 455 / 455 Gastric Drainage 350 / 350 0 / 0 Wound Drainage 90 / 90 220 / 220 500 / 500 Right Abdomen 90 / 90 220 / 220 500 / 500 Other: Meal NPO npo Weight 122.4 kg Blood Glucose* 92 97 121 Patient Weight 12/10/16 23:59 Weight 122.4 kg - General physical appearance well developed, well nourished, no distress - Eyes normal ocular movement - ENT dry mucosa, atraumatic, normocephalic - Neck Neck exam: trachea midline - Respiratory normal respiratory effort, clear to auscultation - Cardiovascular Cardiovascular exam: Present: RRR - Abdomen Abdomen: Present: bowel sounds present, soft, tender (expected postoperative tenderness), wound (JOSE ANGEL drain to bulb suction with 720ml of serous drainage since midnight; NG tube to LIWS with bilious drainage noted (5350ml since midnight)) - Incision Incision: Present: clean and dry, open (LUQ with old colostomy site with scant amount of serous drainage noted) - Integumentary no rash - Neurologic CN 2-12 grossly intact - Psychiatric oriented to time, oriented to person, oriented to place, speech is normal, memory intact - Labs 12/10/16 04:20 12/10/16 04:20 Diabetes panel 12/10/16 Range/Units 04:20 Sodium 139 (136-145) mEq/L Potassium 3.9 (3.5-4.5) mEq/L Chloride 108 (98-109) mEq/L Carbon Dioxide 22 (19-29) mEq/L BUN 14 (8-26) mg/dL Creatinine 0.82 (0.72-1.25) mg/dL Glucose 97 (70-99) mg/dL Calcium 8.5 L (8.6-10.8) mg/dL Calcium panel 12/10/16 Range/Units 04:20 Calcium 8.5 L (8.6-10.8) mg/dL Pituitary panel 12/10/16 Range/Units 04:20 Sodium 139 (136-145) mEq/L Potassium 3.9 (3.5-4.5) mEq/L Chloride 108 (98-109) mEq/L Carbon Dioxide 22 (19-29) mEq/L BUN 14 (8-26) mg/dL Creatinine 0.82 (0.72-1.25) mg/dL Glucose 97 (70-99) mg/dL Calcium 8.5 L (8.6-10.8) mg/dL Adrenal panel 12/10/16 Range/Units 04:20 Sodium 139 (136-145) mEq/L Potassium 3.9 (3.5-4.5) mEq/L Chloride 108 (98-109) mEq/L Carbon Dioxide 22 (19-29) mEq/L BUN 14 (8-26) mg/dL Creatinine 0.82 (0.72-1.25) mg/dL Glucose 97 (70-99) mg/dL Calcium 8.5 L (8.6-10.8) mg/dL - VTE Documentation of Mechanical Device: Intermittent pneumatic compression device Consult Discharge Plan - Plan Referrals: Elinor Fajardo CNP [Advanced Practice Nurse] - 12/21/16 8:45 am Zakiya Franco CNP [Primary Care Provider] -
[2016-12-11] MEDS: 0.9 % Sodium Chloride 1,000 ML IVC SCH (04:40)
[2016-12-11 05:16] LABS: Basophils # 0.1 K/mcL (0.0-0.2); Basophils % 0.7 %; Eosinophils # 0.3 K/mcL (0.0-0.6); Eosinophils % 3.8 %; Hematocrit 43.3 % (37.5-50.1); Hemoglobin 14.7 g/dL (12.9-16.9); Lymphocytes # 2.3 K/mcL (0.6-4.6); Lymphocytes % 25.6 %; Mean Corpuscular HGB Conc 33.9 g/dL (31.6-35.5); Mean Corpuscular Hemoglobin 32.2 pg (28.0-33.3); Mean Platelet Volume 10.7 fL (9.4-12.4); Monocytes # 0.9 K/mcL (0.0-1.3); Monocytes % 10.5 %; Neutrophils # 5.1 K/mcL (1.6-8.9); Platelet Count 217 K/mcL (140-400); Red Blood Count 4.56 M/mcL (4.19-5.50); Red Cell Distribution Width 12.6 % (11.5-14.5); Segmented Neutrophils % 58.4 %
[2016-12-11] MEDS: *HR* Heparin 5,000 UNIT/ML VIAL SQ SCH ×2 (05:25→17:02)
[2016-12-11] MEDS: *HR* Metoprolol 5 MG/5 ML VIAL IVP SCH ×4 (05:25→23:53)
[2016-12-11 05:30] LABS: BUN/Creatinine Ratio 21 (6-26); Blood Urea Nitrogen 15 mg/dL (8-26); Calcium 8.5 mg/dL (8.6-10.8); Carbon Dioxide 22 mEq/L (19-29); Chloride 109 mEq/L (98-109); Glucose 84 mg/dL (70-99); Osmolality,Calculated 294 (280-300); Potassium 3.6 mEq/L (3.5-4.5); Sodium 142 mEq/L (136-145); eGFR For African Americans > 60 (> 60); eGFR For Non-African Americans > 60 (> 60)
[2016-12-11] MEDS: Acetaminophen IV 1,000 MG/100 ML INFUS..BTL IVPB SCH (09:19)
[2016-12-11] MEDS: Pantoprazole 40 MG VIAL IVP SCH (09:19)
--- NOTE | 2016-12-11 09:45 | General Surgery Progress Note ---
<Elinor Fajardo Kashmir - Last Filed: 12/11/16 09:43> Date of Encounter: 12/11/16 Time of Encounter: 09:30 - Assessment and Plan (1) S/P colostomy takedown Current Visit: Yes Status: Acute POD #4 Colostomy Reversal NPO with NG tube to LIWS- bowel rest Await return of bowel function IV fluids Supportive care and pain control- HAND COOPER HELPER pump Daily dressing changes to midline Increase activity- ambulate in hallways with assistance (2) Leukocytosis Current Visit: No Status: Resolved Improved- 13>11.9>8.8 Qualifiers: Leukocytosis type: unspecified Qualified Code(s): D72.829 - Elevated white blood cell count, unspecified (3) COPD (chronic obstructive pulmonary disease) Current Visit: No Status: Chronic Stable without acute exacerbation Continue home dose of Spiriva Will monitor and adjust treatment regimen as necessary Incentive Spirometer every 1 hour while awake Qualifiers: COPD type: unspecified COPD Qualified Code(s): J44.9 - Chronic obstructive pulmonary disease, unspecified (4) Gastroesophageal reflux disease Current Visit: No Status: Chronic Continue PPI therapy daily Qualifiers: Esophagitis presence: esophagitis presence not specified Qualified Code(s) : K21.9 - Gastro-esophageal reflux disease without esophagitis (5) Hyperlipidemia Current Visit: No Status: Chronic Qualifiers: Hyperlipidemia type: unspecified Qualified Code(s): E78.5 - Hyperlipidemia , unspecified (6) Essential hypertension Current Visit: No Status: Chronic BP improved today Continue Metoprolol to 5mg IV every 6 hours Will continue to monitor and adjust treatment regimen as necessary (7) DVT prophylaxis Current Visit: No Status: Acute Continue heparin 5,000 units SQ twice daily for DVT prophylaxis Subjective Patient reports: feels better, still having pain, pain is less, voiding w/o difficulty, no flatus, no bowel movement, afebrile Objective Vital Signs - Last 8 Hours Temp Pulse Resp BP Pulse Ox 12/11/16 06:53 98.6 F 69 18 138/75 95 12/11/16 04:06 98.2 F 80 18 158/80 94 L Intake and Output 12/10/16 12/11/16 12/11/16 23:59 07:59 15:59 Intake Total 715 / 715 1000 / 1000 0 / 0 Output Total 725 / 725 360 / 360 Balance -10 / -10 640 / 640 0 / 0 Intake: IV Fluids 595 / 595 1000 / 1000 0.9 % Sodium Chloride 1, 495 / 495 1000 / 1000 000 ML @ 100 mls/hr IVC . Q10H NENA Rx#:[id number] Ofirmev 1,000 mg In 100 100 / 100 ml @ 400 mls/hr IVPB TID NENA Rx#:[id number] Oral 120 / 120 0 / 0 0 / 0 Output: Urine 300 / 300 0 / 0 Gastric Drainage 300 / 300 250 / 250 Wound Drainage 125 / 125 110 / 110 Right Abdomen 125 / 125 110 / 110 Other: Meal Ice Chips NPO NPO Percent of Meal Consumed 0% Weight 120.1 kg Blood Glucose* 89 78 Patient Weight 12/11/16 23:59 Weight 120.1 kg - General physical appearance well developed, well nourished, no distress - Eyes normal ocular movement - ENT normal mucosa, atraumatic, normocephalic - Neck Neck exam: trachea midline - Respiratory normal respiratory effort, clear to auscultation - Cardiovascular Cardiovascular exam: Present: RRR - Abdomen Abdomen: Present: bowel sounds present (hypoactive), soft, tender (expected postoperative tenderness), wound (NG tube to LIWS with 250ml of bilious drainage noted since midnight; JOSE ANGEL drain to bulb suction with 575ml serous drainage over past 24 hours) - Incision Incision: Present: clean and dry (midline), intact, open (LUQ with scant amount of serous drainge noted; no surrounding erythema or induration) - Neurologic CN 2-12 grossly intact - Psychiatric oriented to time, oriented to person, oriented to place, speech is normal, memory intact - Labs 12/11/16 04:28 12/11/16 04:28 Diabetes panel 12/11/16 Range/Units 04:28 Sodium 142 (136-145) mEq/L Potassium 3.6 (3.5-4.5) mEq/L Chloride 109 (98-109) mEq/L Carbon Dioxide 22 (19-29) mEq/L BUN 15 (8-26) mg/dL Creatinine 0.71 L (0.72-1.25) mg/dL Glucose 84 (70-99) mg/dL Calcium 8.5 L (8.6-10.8) mg/dL Calcium panel 12/11/16 Range/Units 04:28 Calcium 8.5 L (8.6-10.8) mg/dL Pituitary panel 12/11/16 Range/Units 04:28 Sodium 142 (136-145) mEq/L Potassium 3.6 (3.5-4.5) mEq/L Chloride 109 (98-109) mEq/L Carbon Dioxide 22 (19-29) mEq/L BUN 15 (8-26) mg/dL Creatinine 0.71 L (0.72-1.25) mg/dL Glucose 84 (70-99) mg/dL Calcium 8.5 L (8.6-10.8) mg/dL Adrenal panel 12/11/16 Range/Units 04:28 Sodium 142 (136-145) mEq/L Potassium 3.6 (3.5-4.5) mEq/L Chloride 109 (98-109) mEq/L Carbon Dioxide 22 (19-29) mEq/L BUN 15 (8-26) mg/dL Creatinine 0.71 L (0.72-1.25) mg/dL Glucose 84 (70-99) mg/dL Calcium 8.5 L (8.6-10.8) mg/dL - VTE Documentation of Mechanical Device: Intermittent pneumatic compression device Consult Discharge Plan - Plan Referrals: Elinor Fajardo CNP [Advanced Practice Nurse] - 12/21/16 8:45 am Zakiya Franco CNP [Primary Care Provider] - - Attending Attestation I examined this patient and my medical decision-making was reviewed with the CURED MEAT PACKING SUPERVISOR/PA/Advanced Practice Nurse/Resident Physician. I agree with the documented findings, disposition and treatment plan as described except to the extent set forth below. <Ashanti Fuchs - Last Filed: 12/14/16 10:27> Time of Encounter: 12:30 - Assessment and Plan (1) S/P colostomy takedown Current Visit: Yes Status: Acute continue ambulation, OOB to chair BID awaiting return of bowel function, good bowel sounds - would expect flatus over the weekend continue IVF - change to maintenance wbc wnl, Hb stable Nl Cr and good uop (2) DVT prophylaxis Current Visit: No Status: Acute (3) Gastroesophageal reflux disease Current Visit: No Status: Chronic Qualifiers: Esophagitis presence: esophagitis presence not specified Qualified Code(s) : K21.9 - Gastro-esophageal reflux disease without esophagitis (4) Hypertension Current Visit: No Status: Chronic Qualifiers: Hypertension type: essential hypertension Subjective Patient reports: feels better, pain is less, no flatus, no bowel movement Narrative: states feels gas moving around in abdomen but without flatus yet no nausea no complaints Objective Vital Signs - Last 8 Hours Temp Pulse Resp BP Pulse Ox 12/11/16 11:08 98.6 F 79 16 148/80 94 L 12/11/16 06:53 98.6 F 69 18 138/75 95 Intake and Output 12/10/16 12/11/16 12/11/16 23:59 07:59 15:59 Intake Total 715 / 715 1000 / 1000 100 / 100 Output Total 725 / 725 360 / 360 650 / 650 Balance -10 / -10 640 / 640 -550 / -550 Intake: IV Fluids 595 / 595 1000 / 1000 100 / 100 0.9 % Sodium Chloride 1, 495 / 495 1000 / 1000 000 ML @ 100 mls/hr IVC . Q10H NENA Rx#:[id number] Ofirmev 1,000 mg In 100 100 / 100 100 / 100 ml @ 400 mls/hr IVPB TID NENA Rx#:[id number] Oral 120 / 120 0 / 0 0 / 0 Output: Urine 300 / 300 0 / 0 650 / 650 Gastric Drainage 300 / 300 250 / 250 Wound Drainage 125 / 125 110 / 110 Right Abdomen 125 / 125 110 / 110 Other: Meal Ice Chips NPO NPO Percent of Meal Consumed 0% Weight 120.1 kg Blood Glucose* 89 78 81 Patient Weight 12/11/16 23:59 Weight 120.1 kg - General physical appearance well developed, well nourished, no distress, no pain - Eyes PERRL, normal ocular movement - ENT normal mucosa, atraumatic, normocephalic - Neck Neck exam: trachea midline - Respiratory normal expansion, clear to auscultation - Cardiovascular Cardiovascular exam: Present: RRR - Abdomen Abdomen: Present: bowel sounds present, soft, tender, wound - Incision Incision: Present: clean and dry, intact, open - Integumentary no growths - Neurologic CN 2-12 grossly intact - Musculoskeletal normal posture - Psychiatric oriented to time, oriented to person, oriented to place, memory intact - Labs 12/13/16 06:20 12/13/16 06:20 Short CBC 12/11/16 Range/Units 04:28 WBC 8.8 (4.3-11.1) K/mcL Hgb 14.7 (12.9-16.9) g/dL Hct 43.3 (37.5-50.1) % Plt Count 217 (140-400) K/mcL Neutrophils # 5.1 (1.6-8.9) K/mcL BMP 12/11/16 Range/Units 04:28 Sodium 142 (136-145) mEq/L Potassium 3.6 (3.5-4.5) mEq/L Chloride 109 (98-109) mEq/L Carbon Dioxide 22 (19-29) mEq/L BUN 15 (8-26) mg/dL Creatinine 0.71 L (0.72-1.25) mg/dL Glucose 84 (70-99) mg/dL Calcium 8.5 L (8.6-10.8) mg/dL Vital Signs Temp Pulse Resp BP Pulse Ox 12/11/16 11:08 98.6 F 79 16 148/80 94 L 12/11/16 06:53 98.6 F 69 18 138/75 95 12/11/16 04:06 98.2 F 80 18 158/80 94 L 12/10/16 23:25 98.2 F 76 18 130/79 95 12/10/16 19:54 98.0 F 78 18 149/87 94 L 12/10/16 15:17 99.0 F 80 14 141/75 95 12/10/16 15:13 93 L Intake and Output 12/10/16 12/11/16 12/11/16 23:59 07:59 15:59 Intake Total 715 / 715 1000 / 1000 100 / 100 Output Total 725 / 725 360 / 360 650 / 650 Balance -10 / -10 640 / 640 -550 / -550 Intake: IV Fluids 595 / 595 1000 / 1000 100 / 100 0.9 % Sodium Chloride 1, 495 / 495 1000 / 1000 000 ML @ 100 mls/hr IVC . Q10H NENA Rx#:[id number] Ofirmev 1,000 mg In 100 100 / 100 100 / 100 ml @ 400 mls/hr IVPB TID NENA Rx#:[id number] Oral 120 / 120 0 / 0 0 / 0 Output: Urine 300 / 300 0 / 0 650 / 650 Gastric Drainage 300 / 300 250 / 250 Wound Drainage 125 / 125 110 / 110 Right Abdomen 125 / 125 110 / 110 Other: Meal Ice Chips NPO NPO Percent of Meal Consumed 0% Weight 120.1 kg Blood Glucose* 89 78 81 Patient Weight 12/11/16 23:59 Weight 120.1 kg
[2016-12-11] MEDS: Tiotropium 18 MCG inhalation IH SCH (11:06)
[2016-12-11] MEDS: D5% in 0.45% NACL w KCl 20 MEQ/1,000 ML MLS IVC SCH ×2 (14:43→23:52)
[2016-12-11] MEDS: *HR* HYDROmorphone 20 MG/20 ML PCA IVC PRN (22:48)
[2016-12-12 03:39] LABS: Basophils # 0.1 K/mcL (0.0-0.2); Basophils % 0.7 %; Eosinophils # 0.3 K/mcL (0.0-0.6); Eosinophils % 3.6 %; Hematocrit 42.2 % (37.5-50.1); Hemoglobin 14.4 g/dL (12.9-16.9); Immature Granulocytes % 1.8 % (0-4); Lymphocytes # 2.4 K/mcL (0.6-4.6); Lymphocytes % 26.2 %; Mean Corpuscular HGB Conc 34.1 g/dL (31.6-35.5); Mean Corpuscular Hemoglobin 31.6 pg (28.0-33.3); Mean Corpuscular Volume 92.5 fL (83.0-100.0); Mean Platelet Volume 10.4 fL (9.4-12.4); Monocytes # 0.8 K/mcL (0.0-1.3); Monocytes % 9.4 %; Neutrophils # 5.3 K/mcL (1.6-8.9); Platelet Count 240 K/mcL (140-400); Red Blood Count 4.56 M/mcL (4.19-5.50); Red Cell Distribution Width 12.3 % (11.5-14.5); Segmented Neutrophils % 58.3 %
[2016-12-12 03:51] LABS: Magnesium 1.7 mg/dL (1.6-2.6); Phosphorous 3.2 mg/dL (2.3-4.7)
[2016-12-12 03:59] LABS: BUN/Creatinine Ratio 17 (6-26); Blood Urea Nitrogen 12 mg/dL (8-26); Calcium 8.6 mg/dL (8.6-10.8); Carbon Dioxide 23 mEq/L (19-29); Chloride 109 mEq/L (98-109); Glucose 105 mg/dL (70-99); Osmolality,Calculated 292 (280-300); Potassium 3.7 mEq/L (3.5-4.5); Sodium 141 mEq/L (136-145); eGFR For African Americans > 60 (> 60); eGFR For Non-African Americans > 60 (> 60)
[2016-12-12] MEDS: *HR* Metoprolol 5 MG/5 ML VIAL IVP SCH ×3 (05:01→17:55)
[2016-12-12] MEDS: *HR* Heparin 5,000 UNIT/ML VIAL SQ SCH ×2 (05:02→17:54)
[2016-12-12] MEDS: Tiotropium 18 MCG inhalation IH SCH (08:13)
[2016-12-12] MEDS: D5% in 0.45% NACL w KCl 20 MEQ/1,000 ML MLS IVC SCH ×2 (09:00→19:49)
[2016-12-12] MEDS: Pantoprazole 40 MG VIAL IVP SCH (09:01)
--- NOTE | 2016-12-12 10:59 | General Surgery Progress Note ---
Date of Encounter: 12/12/16 Time of Encounter: 08:30 - Assessment and Plan (1) S/P colostomy takedown Current Visit: Yes Status: Acute POD #5 Colostomy Reversal NPO with NG tube to LIWS- bowel rest Await return of bowel function IV fluids Supportive care and pain control- PULLMAN CLERK pump Daily dressing changes to midline Increase activity- ambulate in hallways with assistance (2) Leukocytosis Current Visit: No Status: Resolved Resolved- 13>11.9>8.8>9.0 Qualifiers: Leukocytosis type: unspecified Qualified Code(s): D72.829 - Elevated white blood cell count, unspecified (3) COPD (chronic obstructive pulmonary disease) Current Visit: No Status: Chronic Stable without acute exacerbation Continue home dose of Spiriva Will monitor and adjust treatment regimen as necessary Incentive Spirometer every 1 hour while awake Qualifiers: COPD type: unspecified COPD Qualified Code(s): J44.9 - Chronic obstructive pulmonary disease, unspecified (4) Gastroesophageal reflux disease Current Visit: No Status: Chronic Continue PPI therapy daily. Qualifiers: Esophagitis presence: esophagitis presence not specified Qualified Code(s) : K21.9 - Gastro-esophageal reflux disease without esophagitis (5) HTN (hypertension) Current Visit: No Status: Chronic BP normotensive/stable this AM Continue Metoprolol to 5mg IV every 6 hours Will continue to monitor and adjust treatment regimen as necessary Qualifiers: Hypertension type: essential hypertension Qualified Code(s): I10 - Essential (primary) hypertension (6) Hyperlipidemia Current Visit: No Status: Chronic Qualifiers: Hyperlipidemia type: unspecified Qualified Code(s): E78.5 - Hyperlipidemia , unspecified (7) DVT prophylaxis Current Visit: No Status: Acute Heparin 5,000 units SQ twice daily for DVT prophylaxis Subjective Patient reports: no flatus, no bowel movement, afebrile Narrative: Patient states his throat and nose are both irritated by the NG tube. Notes that it came out this AM with coughing. Patient denies any flatus or BM. Does note pruritic dermatitis on face, that he states he commonly gets at home. Patient states he wants to get up more often but no one comes to help, nurse is aware and has given patient her direct number in addition to call button. Objective Vital Signs - Last 8 Hours Temp Pulse Resp BP Pulse Ox 12/12/16 09:14 98.8 F 63 16 141/74 93 L 12/12/16 08:13 16 141/74 94 L 12/12/16 04:31 98.1 F 66 17 151/83 95 Intake and Output 12/11/16 12/12/16 12/12/16 23:59 07:59 15:59 Intake Total 910 / 910 190 / 190 Output Total 515 / 515 250 / 250 530 / 530 Balance 395 / 395 -250 / -250 -340 / -340 Intake: IV Fluids 910 / 910 190 / 190 KCl 20mEq IN D5%-0.45 910 / 910 190 / 190 NACL 20 meq In 1,000 ml @ 100 mls/hr IVC .Q10H [facility] Rx#:[id number] Oral 0 / 0 Output: Urine 400 / 400 0 / 0 0 / 0 Gastric Drainage 200 / 200 450 / 450 Wound Drainage 115 / 115 50 / 50 80 / 80 Right Abdomen 115 / 115 50 / 50 80 / 80 Other: Meal NPO NPO breakfast Weight 117.934 kg Blood Glucose* 89 108 Patient Weight 12/12/16 23:59 Weight 117.934 kg - General physical appearance well developed, well nourished, no distress - Eyes normal ocular movement - ENT normal mucosa, no congestion, atraumatic, normocephalic - Neck Neck exam: trachea midline - Respiratory normal respiratory effort, clear to auscultation - Cardiovascular Cardiovascular exam: Present: RRR - Abdomen Abdomen: Present: bowel sounds present (hypoactive), soft, non tender, wound ( NG tube to LIWS with 650ml of bilious drainage noted since midnight; JOSE ANGEL drain to bulb suction with 310 ml serous drainage over past 24 hours) - Incision Incision: Present: clean and dry (midline), intact, open (LUQ with scant amount of serous drainge noted) - Integumentary other (dermatitis of eyebrows and nasal folds) - Neurologic CN 2-12 grossly intact - Psychiatric oriented to time, oriented to person, oriented to place, speech is normal, memory intact - Labs 12/13/16 06:20 12/13/16 06:20 Diabetes panel 12/12/16 Range/Units 02:50 Sodium 141 (136-145) mEq/L Potassium 3.7 (3.5-4.5) mEq/L Chloride 109 (98-109) mEq/L Carbon Dioxide 23 (19-29) mEq/L BUN 12 (8-26) mg/dL Creatinine 0.69 L (0.72-1.25) mg/dL Glucose 105 H (70-99) mg/dL Calcium 8.6 (8.6-10.8) mg/dL Calcium panel 12/12/16 12/12/16 Range/Units 02:50 02:50 Calcium 8.6 (8.6-10.8) mg/dL Phosphorus 3.2 (2.3-4.7) mg/dL Pituitary panel 12/12/16 Range/Units 02:50 Sodium 141 (136-145) mEq/L Potassium 3.7 (3.5-4.5) mEq/L Chloride 109 (98-109) mEq/L Carbon Dioxide 23 (19-29) mEq/L BUN 12 (8-26) mg/dL Creatinine 0.69 L (0.72-1.25) mg/dL Glucose 105 H (70-99) mg/dL Calcium 8.6 (8.6-10.8) mg/dL Adrenal panel 12/12/16 Range/Units 02:50 Sodium 141 (136-145) mEq/L Potassium 3.7 (3.5-4.5) mEq/L Chloride 109 (98-109) mEq/L Carbon Dioxide 23 (19-29) mEq/L BUN 12 (8-26) mg/dL Creatinine 0.69 L (0.72-1.25) mg/dL Glucose 105 H (70-99) mg/dL Calcium 8.6 (8.6-10.8) mg/dL - VTE Documentation of Mechanical Device: Intermittent pneumatic compression device Consult Discharge Plan - Plan Referrals: Elinor Fajardo CNP [Advanced Practice Nurse] - 12/21/16 8:45 am Zakiya Franco CNP [Primary Care Provider] -
[2016-12-13] MEDS: *HR* Metoprolol 5 MG/5 ML VIAL IVP SCH ×5 (00:37→23:03)
[2016-12-13] MEDS: *HR* Heparin 5,000 UNIT/ML VIAL SQ SCH ×2 (05:03→17:14)
[2016-12-13] MEDS: D5% in 0.45% NACL w KCl 20 MEQ/1,000 ML MLS IVC SCH ×2 (05:05→17:14)
[2016-12-13 07:13] LABS: Basophils % 0.4 %; Eosinophils # 0.3 K/mcL (0.0-0.6); Eosinophils % 3.5 %; Hematocrit 38.4 % (37.5-50.1); Hemoglobin 13.4 g/dL (12.9-16.9); Immature Granulocytes % 1.3 % (0-4); Lymphocytes # 2.4 K/mcL (0.6-4.6); Lymphocytes % 26.1 %; Mean Corpuscular HGB Conc 34.9 g/dL (31.6-35.5); Mean Corpuscular Hemoglobin 32.2 pg (28.0-33.3); Mean Corpuscular Volume 92.3 fL (83.0-100.0); Mean Platelet Volume 10.4 fL (9.4-12.4); Monocytes # 0.9 K/mcL (0.0-1.3); Monocytes % 9.4 %; Neutrophils # 5.5 K/mcL (1.6-8.9); Platelet Count 237 K/mcL (140-400); Red Blood Count 4.16 M/mcL (4.19-5.50); Red Cell Distribution Width 12.5 % (11.5-14.5); Segmented Neutrophils % 59.3 %
[2016-12-13 07:30] LABS: BUN/Creatinine Ratio 11 (6-26); Blood Urea Nitrogen 8 mg/dL (8-26); Calcium 8.6 mg/dL (8.6-10.8); Carbon Dioxide 23 mEq/L (19-29); Chloride 106 mEq/L (98-109); Glucose 106 mg/dL (70-99); Osmolality,Calculated 287 (280-300); Potassium 3.5 mEq/L (3.5-4.5); Sodium 139 mEq/L (136-145); eGFR For African Americans > 60 (> 60); eGFR For Non-African Americans > 60 (> 60)
[2016-12-13] MEDS: Pantoprazole 40 MG VIAL IVP SCH (07:32)
[2016-12-13] MEDS: Tiotropium 18 MCG inhalation IH SCH (07:44)
[2016-12-13] MEDS: *HR* HYDROmorphone 20 MG/20 ML PCA IVC PRN (08:19)
--- NOTE | 2016-12-13 14:49 | General Surgery Progress Note ---
Date of Encounter: 12/13/16 Time of Encounter: 08:30 - Assessment and Plan (1) S/P colostomy takedown Current Visit: Yes Status: Acute POD #6 Colostomy Reversal NPO with ice. NG removed. Bowel rest, consider increasing to clears tomorrow. Supportive care and pain control- RECHARGER pump Daily dressing changes to midline Increase activity- ambulate in hallways with assistance (2) COPD (chronic obstructive pulmonary disease) Current Visit: No Status: Chronic Stable without acute exacerbation Continue home dose of Spiriva Will monitor and adjust treatment regimen as necessary Incentive Spirometer every 1 hour while awake Qualifiers: COPD type: unspecified COPD Qualified Code(s): J44.9 - Chronic obstructive pulmonary disease, unspecified (3) Gastroesophageal reflux disease Current Visit: No Status: Chronic Continue PPI therapy daily. Qualifiers: Esophagitis presence: esophagitis presence not specified Qualified Code(s) : K21.9 - Gastro-esophageal reflux disease without esophagitis (4) HTN (hypertension) Current Visit: No Status: Chronic BP normotensive/stable this AM Continue Metoprolol to 5mg IV every 6 hours Will continue to monitor and adjust treatment regimen as necessary Qualifiers: Hypertension type: essential hypertension Qualified Code(s): I10 - Essential (primary) hypertension (5) Hyperlipidemia Current Visit: No Status: Chronic Qualifiers: Hyperlipidemia type: unspecified Qualified Code(s): E78.5 - Hyperlipidemia , unspecified (6) DVT prophylaxis Current Visit: No Status: Acute Heparin 5,000 units SQ twice daily for DVT prophylaxis Subjective Patient reports: no new complaints, no flatus, no bowel movement, afebrile Objective Vital Signs - Last 8 Hours Temp Pulse Resp BP Pulse Ox 12/13/16 12:17 98.5 F 79 18 158/69 94 L 12/13/16 07:44 16 96 Intake and Output 12/12/16 12/13/16 12/13/16 23:59 07:59 15:59 Intake Total 1000 / 1000 1000 / 1000 Output Total 455 / 455 790 / 790 840 / 840 Balance 545 / 545 210 / 210 -840 / -840 Intake: IV Fluids 1000 / 1000 1000 / 1000 KCl 20mEq IN D5%-0.45 1000 / 1000 1000 / 1000 NACL 20 meq In 1,000 ml @ 100 mls/hr IVC .Q10H [facility] Rx#:[id number] Oral 0 / 0 0 / 0 Output: Urine 350 / 350 650 / 650 700 / 700 Gastric Drainage 0 / 0 0 / 0 Wound Drainage 105 / 105 140 / 140 140 / 140 Right Abdomen 105 / 105 140 / 140 140 / 140 Other: Meal NPO dinner NPO at this time Weight 119.2 kg Blood Glucose* 99 101 112 Patient Weight 12/13/16 23:59 Weight 119.2 kg - General physical appearance well developed, well nourished, no distress - Eyes normal ocular movement - ENT normal mucosa - Neck Neck exam: trachea midline - Respiratory normal respiratory effort, clear to auscultation - Cardiovascular Cardiovascular exam: Present: RRR - Abdomen Abdomen: Present: bowel sounds present, soft, non tender, wound (NG tube to LIWS with no bilious drainage noted since midnight; JOSE ANGEL drain to bulb suction with 280 ml serous drainage since midnight) - Integumentary other (dermatitis of eyebrows and nasal folds) - Neurologic CN 2-12 grossly intact - Psychiatric oriented to time, oriented to person, oriented to place, speech is normal, memory intact - Labs 12/13/16 06:20 12/13/16 06:20 Diabetes panel 12/13/16 Range/Units 06:20 Sodium 139 (136-145) mEq/L Potassium 3.5 (3.5-4.5) mEq/L Chloride 106 (98-109) mEq/L Carbon Dioxide 23 (19-29) mEq/L BUN 8 (8-26) mg/dL Creatinine 0.72 (0.72-1.25) mg/dL Glucose 106 H (70-99) mg/dL Calcium 8.6 (8.6-10.8) mg/dL Calcium panel 12/13/16 Range/Units 06:20 Calcium 8.6 (8.6-10.8) mg/dL Pituitary panel 12/13/16 Range/Units 06:20 Sodium 139 (136-145) mEq/L Potassium 3.5 (3.5-4.5) mEq/L Chloride 106 (98-109) mEq/L Carbon Dioxide 23 (19-29) mEq/L BUN 8 (8-26) mg/dL Creatinine 0.72 (0.72-1.25) mg/dL Glucose 106 H (70-99) mg/dL Calcium 8.6 (8.6-10.8) mg/dL Adrenal panel 12/13/16 Range/Units 06:20 Sodium 139 (136-145) mEq/L Potassium 3.5 (3.5-4.5) mEq/L Chloride 106 (98-109) mEq/L Carbon Dioxide 23 (19-29) mEq/L BUN 8 (8-26) mg/dL Creatinine 0.72 (0.72-1.25) mg/dL Glucose 106 H (70-99) mg/dL Calcium 8.6 (8.6-10.8) mg/dL - VTE Documentation of Mechanical Device: Intermittent pneumatic compression device Consult Discharge Plan - Plan Referrals: Elinor Fajardo CNP [Advanced Practice Nurse] - 12/21/16 8:45 am Zakiya Franco CNP [Primary Care Provider] -
[2016-12-13] MEDS: Cetaphil Lotion 473 ML BOTTLE TP SCH (17:15)
[2016-12-14] MEDS: *HR* Heparin 5,000 UNIT/ML VIAL SQ SCH ×2 (05:03→17:15)
[2016-12-14] MEDS: *HR* Metoprolol 5 MG/5 ML VIAL IVP SCH ×3 (05:04→17:15)
[2016-12-14] MEDS: D5% in 0.45% NACL w KCl 20 MEQ/1,000 ML MLS IVC SCH ×2 (05:09→15:35)
[2016-12-14] MEDS: Tiotropium 18 MCG inhalation IH SCH (08:15)
[2016-12-14] MEDS ORDERED: *HR* HYDROmorphone 2 MG/ML SYRINGE IVP PRN (09:42)
[2016-12-14] MEDS: Pantoprazole 40 MG VIAL IVP SCH (09:46)
[2016-12-14] MEDS: Cetaphil Lotion 473 ML BOTTLE TP SCH (09:46)
--- NOTE | 2016-12-14 10:54 | General Surgery Progress Note ---
<Deniz Nixon - Last Filed: 12/14/16 10:51> Date of Encounter: 12/14/16 Time of Encounter: 08:00 - Assessment and Plan (1) S/P colostomy takedown Current Visit: Yes Status: Acute POD #6 Colostomy Reversal Will begin clear liquid diet. NG removed yesterday Supportive care and pain control- dc'd GLEASON GEAR GENERATOR pump, dilaudid prn. Daily dressing changes to midline Increase activity- ambulate in hallways with assistance. Patient may shower. (2) COPD (chronic obstructive pulmonary disease) Current Visit: No Status: Chronic Stable without acute exacerbation Continue home dose of Spiriva Will monitor and adjust treatment regimen as necessary Incentive Spirometer every 1 hour while awake Qualifiers: COPD type: unspecified COPD Qualified Code(s): J44.9 - Chronic obstructive pulmonary disease, unspecified (3) Gastroesophageal reflux disease Current Visit: No Status: Chronic Continue PPI therapy daily. Qualifiers: Esophagitis presence: esophagitis presence not specified Qualified Code(s) : K21.9 - Gastro-esophageal reflux disease without esophagitis (4) Hypertension Current Visit: No Status: Chronic BP normotensive/stable this AM Continue Metoprolol to 5mg IV every 6 hours Will continue to monitor and adjust treatment regimen as necessary Qualifiers: Hypertension type: essential hypertension (5) Hyperlipidemia Current Visit: No Status: Chronic Qualifiers: Hyperlipidemia type: unspecified Qualified Code(s): E78.5 - Hyperlipidemia , unspecified (6) DVT prophylaxis Current Visit: No Status: Acute Heparin 5,000 units SQ twice daily for DVT prophylaxis Subjective Patient reports: no new complaints, feels better, pain is less, flatus, no bowel movement, afebrile Objective Vital Signs - Last 8 Hours Temp Pulse Resp BP Pulse Ox 12/14/16 10:46 98.4 F 64 16 135/71 94 L 12/14/16 06:48 98.3 F 66 18 112/65 93 L 12/14/16 04:29 98.4 F 81 18 124/73 94 L Intake and Output 12/13/16 12/14/16 12/14/16 23:59 07:59 15:59 Intake Total 0 / 0 998 / 998 360 / 360 Output Total 1010 / 1010 60 / 60 80 / 80 Balance -1010 / -1010 938 / 938 280 / 280 Intake: IV Fluids 938 / 938 KCl 20mEq IN D5%-0.45 938 / 938 NACL 20 meq In 1,000 ml @ 100 mls/hr IVC .Q10H [facility] Rx#:[id number] Oral 0 / 0 60 / 60 360 / 360 Output: Urine 800 / 800 0 / 0 0 / 0 Wound Drainage 210 / 210 60 / 60 80 / 80 Right Abdomen 210 / 210 60 / 60 80 / 80 Other: Meal NPO dinner Ice chips Breakfast # Bowel Movements 0 0 Weight 119.3 kg Blood Glucose* 90 101 Patient Weight 12/14/16 23:59 Weight 119.3 kg - General physical appearance well developed, well nourished, no distress - Eyes normal ocular movement - ENT normal mucosa, atraumatic, normocephalic - Neck Neck exam: trachea midline - Respiratory normal respiratory effort, clear to auscultation - Cardiovascular Cardiovascular exam: Present: RRR - Abdomen Abdomen: Present: bowel sounds present, soft, non tender, wound (JOSE ANGEL drain to bulb suction with 140 ml serous drainage since midnight, 490ml total previous 24 hours.) - Integumentary other (improving dermatitis over eyebrows, still present on nose, cheeks.) - Neurologic CN 2-12 grossly intact - Psychiatric oriented to time, oriented to person, oriented to place, speech is normal, memory intact - Labs 12/13/16 06:20 12/13/16 06:20 - VTE Documentation of Mechanical Device: Intermittent pneumatic compression device Consult Discharge Plan - Plan Referrals: Elinor Fajardo CNP [Advanced Practice Nurse] - 12/21/16 8:45 am Zakiya Franco CNP [Primary Care Provider] - <Ashanti Fuchs - Last Filed: 12/15/16 14:50> - Assessment and Plan (1) S/P colostomy takedown Current Visit: Yes Status: Acute (2) DVT prophylaxis Current Visit: No Status: Acute (3) Gastroesophageal reflux disease Current Visit: No Status: Chronic Qualifiers: Esophagitis presence: esophagitis presence not specified Qualified Code(s) : K21.9 - Gastro-esophageal reflux disease without esophagitis (4) Hypertension Current Visit: No Status: Chronic Qualifiers: Hypertension type: essential hypertension Objective Vital Signs - Last 8 Hours Temp Pulse Resp BP Pulse Ox 12/15/16 11:07 98.5 F 83 16 113/70 93 L 12/15/16 08:26 17 93 L 12/15/16 07:37 99.1 F 80 17 121/74 93 L Intake and Output 12/14/16 12/15/16 12/15/16 23:59 07:59 15:59 Intake Total 150 / 150 1783 710 / 710 Output Total 470 / 470 60 / 60 380 / 380 Balance -320 / -320 1723 330 / 330 Intake: IV Fluids 1783 150 / 150 KCl 20mEq IN D5%-0.45 1783 150 / 150 NACL 20 meq In 1,000 ml @ 100 mls/hr IVC .Q10H [facility] Rx#:[id number] Oral 150 / 150 560 / 560 Output: Urine 0 / 0 350 / 350 Stool 400 / 400 Wound Drainage 70 / 70 60 / 60 30 / 30 Right Abdomen 70 / 70 60 / 60 30 / 30 Other: Meal Dinner Lunch Percent of Meal Consumed 0% 25% Stool Size Large Large Small Stool Consistency liquid liquid liquid Stool Characteristics Pasty Stool Color Green Green Green # Voids 2 # Bowel Movements 1 3 Weight 115.7 kg Patient Weight 12/15/16 23:59 Weight 115.7 kg - Labs 12/15/16 07:54 12/15/16 07:54 Diabetes panel 12/15/16 Range/Units 07:54 Sodium 138 (136-145) mEq/L Potassium 3.8 (3.5-4.5) mEq/L Chloride 107 (98-109) mEq/L Carbon Dioxide 21 (19-29) mEq/L BUN 8 (8-26) mg/dL Creatinine 0.78 (0.72-1.25) mg/dL Glucose 132 H (70-99) mg/dL Calcium 8.7 (8.6-10.8) mg/dL Calcium panel 12/15/16 Range/Units 07:54 Calcium 8.7 (8.6-10.8) mg/dL Pituitary panel 12/15/16 Range/Units 07:54 Sodium 138 (136-145) mEq/L Potassium 3.8 (3.5-4.5) mEq/L Chloride 107 (98-109) mEq/L Carbon Dioxide 21 (19-29) mEq/L BUN 8 (8-26) mg/dL Creatinine 0.78 (0.72-1.25) mg/dL Glucose 132 H (70-99) mg/dL Calcium 8.7 (8.6-10.8) mg/dL Adrenal panel 12/15/16 Range/Units 07:54 Sodium 138 (136-145) mEq/L Potassium 3.8 (3.5-4.5) mEq/L Chloride 107 (98-109) mEq/L Carbon Dioxide 21 (19-29) mEq/L BUN 8 (8-26) mg/dL Creatinine 0.78 (0.72-1.25) mg/dL Glucose 132 H (70-99) mg/dL Calcium 8.7 (8.6-10.8) mg/dL - Attending Attestation I examined this patient and my medical decision-making was reviewed with the CHEMICAL RESEARCH ENGINEER/PA/Advanced Practice Nurse/Resident Physician. I agree with the documented findings, disposition and treatment plan as described except to the extent set forth below.
[2016-12-14] MEDS ORDERED: Simethicone 80 MG TAB.CHEW PO PRN (11:54)
[2016-12-15] MEDS: *HR* Metoprolol 5 MG/5 ML VIAL IVP SCH ×4 (00:06→17:34)
[2016-12-15] MEDS: D5% in 0.45% NACL w KCl 20 MEQ/1,000 ML MLS IVC SCH (00:57)
[2016-12-15] MEDS: *HR* Heparin 5,000 UNIT/ML VIAL SQ SCH ×2 (05:09→17:34)
[2016-12-15] MEDS: Pantoprazole 40 MG VIAL IVP SCH (07:57)
[2016-12-15] MEDS: Cetaphil Lotion 473 ML BOTTLE TP SCH (07:57)
[2016-12-15 08:16] LABS: Basophils # 0.1 K/mcL (0.0-0.2); Basophils % 0.5 %; Eosinophils # 0.2 K/mcL (0.0-0.6); Eosinophils % 1.3 %; Hematocrit 41.8 % (37.5-50.1); Hemoglobin 14.4 g/dL (12.9-16.9); Immature Granulocytes % 1.3 % (0-4); Lymphocytes # 1.6 K/mcL (0.6-4.6); Lymphocytes % 12.7 %; Mean Corpuscular HGB Conc 34.4 g/dL (31.6-35.5); Mean Corpuscular Volume 92.9 fL (83.0-100.0); Mean Platelet Volume 10.2 fL (9.4-12.4); Monocytes # 1.1 K/mcL (0.0-1.3); Monocytes % 8.3 %; Neutrophils # 9.7 K/mcL (1.6-8.9); Platelet Count 271 K/mcL (140-400); Red Cell Distribution Width 12.8 % (11.5-14.5); Segmented Neutrophils % 75.9 %
[2016-12-15] MEDS: Tiotropium 18 MCG inhalation IH SCH (08:25)
[2016-12-15 08:29] LABS: BUN/Creatinine Ratio 10 (6-26); Blood Urea Nitrogen 8 mg/dL (8-26); Calcium 8.7 mg/dL (8.6-10.8); Carbon Dioxide 21 mEq/L (19-29); Chloride 107 mEq/L (98-109); Glucose 132 mg/dL (70-99); Osmolality,Calculated 286 (280-300); Potassium 3.8 mEq/L (3.5-4.5); Sodium 138 mEq/L (136-145); eGFR For African Americans > 60 (> 60); eGFR For Non-African Americans > 60 (> 60)
--- NOTE | 2016-12-15 11:51 | General Surgery Progress Note ---
<Elinor Fajardo Kashmir - Last Filed: 12/15/16 11:48> Date of Encounter: 12/15/16 Time of Encounter: 10:40 - Assessment and Plan (1) S/P colostomy takedown Current Visit: Yes Status: Acute POD #8 Colostomy Reversal Advance to full liquids today Saline lock IV fluids Supportive care and pain control- Percocet added today Daily dressing changes to midline Increase activity- ambulate in hallways with assistance (2) Leukocytosis Current Visit: No Status: Resolved 12.8 today Repeat in the am Qualifiers: Leukocytosis type: unspecified Qualified Code(s): D72.829 - Elevated white blood cell count, unspecified (3) COPD (chronic obstructive pulmonary disease) Current Visit: No Status: Chronic Stable without acute exacerbation Continue home dose of Spiriva Will monitor and adjust treatment regimen as necessary Incentive Spirometer every 1 hour while awake Qualifiers: COPD type: unspecified COPD Qualified Code(s): J44.9 - Chronic obstructive pulmonary disease, unspecified (4) Gastroesophageal reflux disease Current Visit: No Status: Chronic Continue PPI therapy daily Qualifiers: Esophagitis presence: esophagitis presence not specified Qualified Code(s) : K21.9 - Gastro-esophageal reflux disease without esophagitis (5) Hyperlipidemia Current Visit: No Status: Chronic Qualifiers: Hyperlipidemia type: unspecified Qualified Code(s): E78.5 - Hyperlipidemia , unspecified (6) Essential hypertension Current Visit: No Status: Chronic Normotensive Will continue to monitor and adjust treatment regimen as necessary (7) DVT prophylaxis Current Visit: No Status: Acute Continue heparin 5,000 units SQ twice daily for DVT prophylaxis Subjective Patient reports: no new complaints, feels better, still having pain, pain is less, tolerating liquids well (full liquids), voiding w/o difficulty, flatus, bowel movement (10-15 loose bowel movements last night), afebrile Objective Vital Signs - Last 8 Hours Temp Pulse Resp BP Pulse Ox 12/15/16 11:07 98.5 F 83 16 113/70 93 L 12/15/16 08:26 17 93 L 12/15/16 07:37 99.1 F 80 17 121/74 93 L 12/15/16 05:01 98.5 F 79 12 127/82 93 L Intake and Output 12/14/16 12/15/16 12/15/16 23:59 07:59 15:59 Intake Total 150 / 150 1783 370 / 370 Output Total 470 / 470 60 / 60 20 / 20 Balance -320 / -320 4 172 350 / 350 Intake: IV Fluids 1783 150 / 150 KCl 20mEq IN D5%-0.45 1783 150 / 150 NACL 20 meq In 1,000 ml @ 100 mls/hr IVC .Q10H [facility]NA Rx#:[id number] Oral 150 / 150 220 / 220 Output: Urine 0 / 0 Stool 400 / 400 Wound Drainage 70 / 70 60 / 60 20 / 20 Right Abdomen 70 / 70 60 / 60 20 / 20 Other: Meal Dinner Breakfast Percent of Meal Consumed 0% 0% Stool Size Large Large Small Stool Consistency liquid liquid liquid Stool Characteristics Pasty Stool Color Green Green Green # Voids 2 # Bowel Movements 1 2 Weight 115.7 kg Patient Weight 12/15/16 23:59 Weight 115.7 kg - General physical appearance well developed, well nourished, no distress - Eyes normal ocular movement - ENT normal mucosa, atraumatic, normocephalic - Neck Neck exam: trachea midline - Respiratory normal respiratory effort, clear to auscultation - Cardiovascular Cardiovascular exam: Present: RRR - Abdomen Abdomen: Present: bowel sounds present, soft, tender (minimal, expected post- operative tenderness), wound (JOSE ANGEL drain to bulb suction with serous drainage noted (80ml since midnight)) - Incision Incision: Present: clean and dry (scant amount of serous drainage noted from LUQ packing site), intact - Integumentary other (Rash noted to face consistent with eczema) - Neurologic CN 2-12 grossly intact - Psychiatric oriented to time, oriented to person, oriented to place, speech is normal, memory intact - Labs 12/15/16 07:54 12/15/16 07:54 Diabetes panel 12/15/16 Range/Units 07:54 Sodium 138 (136-145) mEq/L Potassium 3.8 (3.5-4.5) mEq/L Chloride 107 (98-109) mEq/L Carbon Dioxide 21 (19-29) mEq/L BUN 8 (8-26) mg/dL Creatinine 0.78 (0.72-1.25) mg/dL Glucose 132 H (70-99) mg/dL Calcium 8.7 (8.6-10.8) mg/dL Calcium panel 12/15/16 Range/Units 07:54 Calcium 8.7 (8.6-10.8) mg/dL Pituitary panel 12/15/16 Range/Units 07:54 Sodium 138 (136-145) mEq/L Potassium 3.8 (3.5-4.5) mEq/L Chloride 107 (98-109) mEq/L Carbon Dioxide 21 (19-29) mEq/L BUN 8 (8-26) mg/dL Creatinine 0.78 (0.72-1.25) mg/dL Glucose 132 H (70-99) mg/dL Calcium 8.7 (8.6-10.8) mg/dL Adrenal panel 12/15/16 Range/Units 07:54 Sodium 138 (136-145) mEq/L Potassium 3.8 (3.5-4.5) mEq/L Chloride 107 (98-109) mEq/L Carbon Dioxide 21 (19-29) mEq/L BUN 8 (8-26) mg/dL Creatinine 0.78 (0.72-1.25) mg/dL Glucose 132 H (70-99) mg/dL Calcium 8.7 (8.6-10.8) mg/dL - VTE Documentation of Mechanical Device: Intermittent pneumatic compression device Consult Discharge Plan - Plan Referrals: Elinor Fajardo CNP [Advanced Practice Nurse] - 12/21/16 8:45 am Zakiya Franco CNP [Primary Care Provider] - - Attending Attestation I examined this patient and my medical decision-making was reviewed with the ASSISTANT TEACHER PRIMARY/PA/Advanced Practice Nurse/Resident Physician. I agree with the documented findings, disposition and treatment plan as described except to the extent set forth below. <Ashanti Fuchs - Last Filed: 12/15/16 14:54> Time of Encounter: 14:00 - Assessment and Plan (1) S/P colostomy takedown Current Visit: Yes Status: Acute tolerating fulls, advance to soft diet and see if helps solidify stools check cdiff and if negative start immodium for diarrhea daily ostomy site dressing changes ambulate ok to shower prn pain control (2) DVT prophylaxis Current Visit: No Status: Acute (3) Gastroesophageal reflux disease Current Visit: No Status: Chronic omeprazole Qualifiers: Esophagitis presence: esophagitis presence not specified Qualified Code(s) : K21.9 - Gastro-esophageal reflux disease without esophagitis (4) Hypertension Current Visit: No Status: Chronic normotensive, continue lopressor iv Qualifiers: Hypertension type: essential hypertension (5) Diarrhea Current Visit: Yes Status: Acute check cdiff, if negative start immodium Qualifiers: Diarrhea type: unspecified type Qualified Code(s): R19.7 - Diarrhea, unspecified Subjective Narrative: pain controlled, some abdominal discomfort with eating but not significant, tolerating fulls still having diarrhea no fevers Objective Vital Signs - Last 8 Hours Temp Pulse Resp BP Pulse Ox 12/15/16 11:07 98.5 F 83 16 113/70 93 L 12/15/16 08:26 17 93 L 12/15/16 07:37 99.1 F 80 17 121/74 93 L Intake and Output 12/14/16 12/15/16 12/15/16 23:59 07:59 15:59 Intake Total 150 / 150 1784 / 1784 710 / 710 Output Total 470 / 470 60 / 60 380 / 380 Balance -320 / -320 1724 / 1724 330 / 330 Intake: IV Fluids 1783 150 / 150 KCl 20mEq IN D5%-0.45 1783 / 1784 150 / 150 NACL 20 meq In 1,000 ml @ 100 mls/hr IVC .Q10H NENA Rx#:[id number] Oral 150 / 150 560 / 560 Output: Urine 0 / 0 350 / 350 Stool 400 / 400 Wound Drainage 70 / 70 60 / 60 30 / 30 Right Abdomen 70 / 70 60 / 60 30 / 30 Other: Meal Dinner Lunch Percent of Meal Consumed 0% 25% Stool Size Large Large Small Stool Consistency liquid liquid liquid Stool Characteristics Pasty Stool Color Green Green Green # Voids 2 # Bowel Movements 1 3 Weight 115.7 kg Patient Weight 12/15/16 23:59 Weight 115.7 kg - General physical appearance well developed, well nourished, no distress - Eyes PERRL, normal ocular movement - Neck Neck exam: trachea midline - Respiratory clear to auscultation - Cardiovascular Cardiovascular exam: Present: RRR - Abdomen Abdomen: Present: bowel sounds present, soft, tender - Incision Incision: Present: clean and dry, intact - Integumentary other - Neurologic CN 2-12 grossly intact - Musculoskeletal normal posture - Psychiatric oriented to time, oriented to person, oriented to place, memory intact - Labs 12/15/16 07:54 12/15/16 07:54 Short CBC 12/15/16 Range/Units 07:54 WBC 12.8 H (4.3-11.1) K/mcL Hgb 14.4 (12.9-16.9) g/dL Hct 41.8 (37.5-50.1) % Plt Count 271 (140-400) K/mcL Neutrophils # 9.7 H (1.6-8.9) K/mcL BMP 12/15/16 Range/Units 07:54 Sodium 138 (136-145) mEq/L Potassium 3.8 (3.5-4.5) mEq/L Chloride 107 (98-109) mEq/L Carbon Dioxide 21 (19-29) mEq/L BUN 8 (8-26) mg/dL Creatinine 0.78 (0.72-1.25) mg/dL Glucose 132 H (70-99) mg/dL Calcium 8.7 (8.6-10.8) mg/dL Vital Signs Temp Pulse Resp BP Pulse Ox 12/15/16 11:07 98.5 F 83 16 113/70 93 L 12/15/16 08:26 17 93 L 12/15/16 07:37 99.1 F 80 17 121/74 93 L 12/15/16 05:01 98.5 F 79 12 127/82 93 L 12/14/16 23:51 99.0 F 91 16 117/74 93 L 12/14/16 19:51 98.7 F 82 16 130/78 95 Intake and Output 12/14/16 12/15/16 12/15/16 23:59 07:59 15:59 Intake Total 150 / 150 1783 710 / 710 Output Total 470 / 470 60 / 60 380 / 380 Balance -320 / -320 1724 / 1724 330 / 330 Intake: IV Fluids 1783 150 / 150 KCl 20mEq IN D5%-0.45 1783 150 / 150 NACL 20 meq In 1,000 ml @ 100 mls/hr IVC .Q10H NENA Rx#:[id number] Oral 150 / 150 560 / 560 Output: Urine 0 / 0 350 / 350 Stool 400 / 400 Wound Drainage 70 / 70 60 / 60 30 / 30 Right Abdomen 70 / 70 60 / 60 Other: Meal Dinner Lunch Percent of Meal Consumed 0% 25% Stool Size Large Large Small Stool Consistency liquid liquid liquid Stool Characteristics Pasty Stool Color Green Green Green # Voids 2 # Bowel Movements 1 3 Weight 115.7 kg Patient Weight 12/15/16 23:59 Weight 115.7 kg
[2016-12-15] MEDS: *HR* OxyCODONE/APAP 5/325 TABLET PO PRN (19:30)
[2016-12-16] MEDS: *HR* Metoprolol 5 MG/5 ML VIAL IVP SCH ×2 (00:03→05:39)
[2016-12-16] MEDS: *HR* OxyCODONE/APAP 5/325 TABLET PO PRN ×2 (00:09→05:40)
[2016-12-16] MEDS: D5% in 0.45% NACL w KCl 20 MEQ/1,000 ML MLS IVC SCH (01:27)
[2016-12-16] MEDS: *HR* Heparin 5,000 UNIT/ML VIAL SQ SCH (05:39)
[2016-12-16 05:54] LABS: Basophils # 0.1 K/mcL (0.0-0.2); Basophils % 0.6 %; Eosinophils # 0.2 K/mcL (0.0-0.6); Eosinophils % 1.9 %; Hematocrit 41.6 % (37.5-50.1); Hemoglobin 14.1 g/dL (12.9-16.9); Lymphocytes # 2.4 K/mcL (0.6-4.6); Lymphocytes % 19.8 %; Mean Corpuscular HGB Conc 33.9 g/dL (31.6-35.5); Mean Corpuscular Hemoglobin 31.8 pg (28.0-33.3); Mean Corpuscular Volume 93.7 fL (83.0-100.0); Mean Platelet Volume 10.8 fL (9.4-12.4); Monocytes # 1.3 K/mcL (0.0-1.3); Monocytes % 10.4 %; Neutrophils # 8.1 K/mcL (1.6-8.9); Platelet Count 284 K/mcL (140-400); Red Blood Count 4.44 M/mcL (4.19-5.50); Red Cell Distribution Width 12.8 % (11.5-14.5); Segmented Neutrophils % 66.3 %
[2016-12-16 06:05] LABS: BUN/Creatinine Ratio 11 (6-26); Blood Urea Nitrogen 10 mg/dL (8-26); Calcium 8.8 mg/dL (8.6-10.8); Carbon Dioxide 25 mEq/L (19-29); Chloride 105 mEq/L (98-109); Glucose 106 mg/dL (70-99); Osmolality,Calculated 291 (280-300); Potassium 3.8 mEq/L (3.5-4.5); Sodium 141 mEq/L (136-145); eGFR For African Americans > 60 (> 60); eGFR For Non-African Americans > 60 (> 60)
[2016-12-16] MEDS: Tiotropium 18 MCG inhalation IH SCH (08:25)
[2016-12-16] MEDS: Cetaphil Lotion 473 ML BOTTLE TP SCH (10:29)
--- NOTE | 2016-12-16 11:04 | Discharge Summary ---
<AlleghanyElinor Kashmir - Last Filed: 12/16/16 13:09> Date of Encounter: 12/16/16 Time of Encounter: 10:30 - Discharge Diagnosis (1) S/P colostomy takedown Priority: Primary Status: Acute (2) Leukocytosis Priority: Secondary Status: Acute Comments: Improving Qualifiers: Leukocytosis type: unspecified Qualified Code(s): D72.829 - Elevated white blood cell count, unspecified (3) COPD (chronic obstructive pulmonary disease) Priority: Secondary Status: Chronic Qualifiers: COPD type: unspecified COPD Qualified Code(s): J44.9 - Chronic obstructive pulmonary disease, unspecified (4) Gastroesophageal reflux disease Priority: Secondary Status: Chronic Qualifiers: Esophagitis presence: esophagitis presence not specified Qualified Code(s) : K21.9 - Gastro-esophageal reflux disease without esophagitis (5) Hyperlipidemia Priority: Secondary Status: Chronic Qualifiers: Hyperlipidemia type: unspecified Qualified Code(s): E78.5 - Hyperlipidemia , unspecified (6) Essential hypertension Priority: Secondary Status: Chronic (7) DVT prophylaxis Priority: Secondary Status: Acute - Discharge Medications Prescriptions: Loperamide [Imodium] 2 mg PO Q4HR PRN #60 capsule PRN Reason: Diarrhea OxyCODONE/APAP 5/325 [Percocet 5/325 MG] 1 each PO Q4HR PRN #30 tablet PRN Reason: Pain Docusate [Colace] 100 mg PO BID PRN #30 capsule PRN Reason: Constipation Home Medications: Tiotropium [Spiriva] 18 mcg [facility] 04/06/16 [History] Multivitamin [One Daily Essential] 1 each PO DAILY 07/06/16 [History] Omeprazole [PriLOSEC] 20 mg PO DAILY 07/06/16 [History] Docusate [Colace] 100 mg PO BID PRN #30 capsule 12/16/16 [Rx] Loperamide [Imodium] 2 mg PO Q4HR PRN #60 capsule 12/16/16 [Rx] OxyCODONE/APAP 5/325 [Percocet 5/325 MG] 1 each PO Q4HR PRN #30 tablet 12/16/16 [Rx] Allergies/Adverse Reactions: Allergies No Known Allergies Allergy (Verified 12/07/16 07:25) General Surgery Exam Initial Vital Signs Temp Pulse Resp BP Pulse Ox 99.0 F 88 18 134/81 91 L 12/07/16 06:28 12/07/16 06:28 12/07/16 06:28 12/07/16 06:28 12/07/16 06:28 - General physical appearance well developed, well nourished, no distress - Eyes normal ocular movement - ENT normal mucosa, atraumatic, normocephalic - Neck trachea midline - Respiratory normal respiratory effort, clear to auscultation - Cardiovascular Cardiovascular exam: Present: RRR - Abdomen Abdomen general surgery: Present: bowel sounds present, soft, tender (minimal expected post-operative tenderness), wound (JOSE ANGEL drain to bulb suction with serous drainage noted (70ml in the past 24 hours)) - Incision Incision: Present: intact, open (LUQ with packing- small amount of serousang. drainage noted) - Integumentary Integumentary general surgery: Present: warm and dry, other (eczema noted to face unchanged) - Neurologic Present: CN 2-12 grossly intact - Musculoskeletal Present: normal gait, normal posture - Psychiatric Psychiatric general surgery: Present: appropriate, oriented to person, oriented to place, oriented to time, speech is normal, memory intact Date of admission: 12/07/16 14:07 Primary care physician: Zakiya Franco CNP Consults: 12/10/16 08:53 Consult to Certified Executive Chef [CONS] Routine Reason for SW Consult: Discharge planning, may need Home Health for wound packing. Discharging clinician: Ashanti Fuchs (Pippa Fajardo) Anticipated date of discharge: 12/16/16 - Patient Status Disposition: Home Health Service Condition: Good Functional capacity at discharge: independent ambulation Overall status at discharge: patient is progressing back to baseline - Discharge Instructions Instructions: Diverticulitis (DC) Follow Up With: Elinor Fajardo CNP [Advanced Practice Nurse] - 12/21/16 8:45 am Additional Instructions: #1 may shower, no tub bath for 2 weeks #2 wash incisions with soap and water and pat dry daily #3 no lifting, pushing, pulling more than 15 pounds for the next 6 weeks #4 no driving until off narcotics for 24 hours and able to safely react in the car #5 may climb stairs #6 JOSE ANGEL drain- empty drain 2-3 times per day and as needed if full. Record output and bring record to follow-up appointment on 12/21/16 with Elinor Fajardo. Wash around drain with soap and water and pat dry daily. Apply split 4X4 gauze and tape to secure #7- LUQ wound- wash with soap and water and pat dry, pack open area with 1/4 inch plain gauze, cover with 4X4 and tape to secure. #8- Midline- wash with soap and water and pat dry daily, apply ABD pad and tape to secure daily. - Diet and Activity Activity: other (See additional instructions above) Diet: advance to your usual diet (as tolerated) - Hospital Course Hospital course: Mr. Teran is a 61 year old male who presented to the hospital for colostomy reversal with Dr. Fuchs. He remained on bowel rest with NG tube to [facility] while awaiting return of bowel function. He did have a post-operative ileus. With resolution of his ileus, the NG tube was removed. He was started on clear liquid diet and tolerated this without difficulty. He did experience diarrhea with return of bowel function but this has been controlled with imodium. The patient has been advanced to a soft diet and is tolerating this without nausea/ vomiting. His vital signs are stable and he is afebrile. His laboratory values are stable. His pain is well controlled with oral pain medications. He is voiding and ambulating without difficulty. We will begin discharge planning and plan for outpatient follow-up in the next 1-2 weeks. - Time Spent with Patient Total time spent providing and/or coordinating discharge services: Less than 30 minutes Labs on day of discharge: Labs from last 24 hours 12/16/16 12/16/16 12/15/16 05:12 05:12 15:30 WBC 12.2 H RBC 4.44 Hgb 14.1 Hct 41.6 MCV 93.7 MCH 31.8 MCHC 33.9 RDW 12.8 Plt Count 284 MPV 10.8 Immature Gran % 1.0 Seg Neutrophils % 66.3 Lymphocytes % 19.8 Monocytes % 10.4 Eosinophils % 1.9 Basophils % 0.6 Neutrophils # 8.1 Lymphocytes # 2.4 Monocytes # 1.3 Eosinophils # 0.2 Basophils # 0.1 Sodium 141 Potassium 3.8 Chloride 105 Carbon Dioxide 25 BUN 10 Creatinine 0.88 Est GFR ( Amer) > 60 Est GFR (Non-Af Amer) > 60 BUN/Creatinine Ratio 11 Glucose 106 H Calculated Osmolality 291 Calcium 8.8 C. difficile Tox (PCR) Negative - Attending Attestation I examined this patient and my medical decision-making was reviewed with the FIRE SUPPRESSION CAPTAIN/PA/Advanced Practice Nurse/Resident Physician. I agree with the documented findings, disposition and treatment plan as described except to the extent set forth below. <Ashanti Fuchs - Last Filed: 12/16/16 15:17> - Discharge Diagnosis (1) S/P colostomy takedown Status: Acute (2) DVT prophylaxis Status: Acute (3) Gastroesophageal reflux disease Status: Chronic Qualifiers: Esophagitis presence: esophagitis presence not specified Qualified Code(s) : K21.9 - Gastro-esophageal reflux disease without esophagitis (4) Hypertension Status: Chronic Qualifiers: Hypertension type: essential hypertension (5) Diarrhea Status: Acute Qualifiers: Diarrhea type: unspecified type Qualified Code(s): R19.7 - Diarrhea, unspecified General Surgery Exam Initial Vital Signs Temp Pulse Resp BP Pulse Ox 99.0 F 88 18 134/81 91 L 12/07/16 06:28 12/07/16 06:28 12/07/16 06:28 12/07/16 06:28 12/07/16 06:28 Date of admission: 12/07/16 14:07 Primary care physician: Zakiya Franco CNP Consults: 12/10/16 08:53 Consult to Certified Executive Chef [CONS] Routine Reason for SW Consult: Discharge planning, may need Home Health for wound packing. - Hospital Course Hospital course: Mr. Teran is a 61 year old male - Time Spent with Patient Total time spent providing and/or coordinating discharge services: Labs on day of discharge: Labs from last 24 hours 12/16/16 12/16/16 12/15/16 05:12 05:12 15:30 WBC 12.2 H RBC 4.44 Hgb 14.1 Hct 41.6 MCV 93.7 MCH 31.8 MCHC 33.9 RDW 12.8 Plt Count 284 MPV 10.8 Immature Gran % 1.0 Seg Neutrophils % 66.3 Lymphocytes % 19.8 Monocytes % 10.4 Eosinophils % 1.9 Basophils % 0.6 Neutrophils # 8.1 Lymphocytes # 2.4 Monocytes # 1.3 Eosinophils # 0.2 Basophils # 0.1 Sodium 141 Potassium 3.8 Chloride 105 Carbon Dioxide 25 BUN 10 Creatinine 0.88 Est GFR ( Amer) > 60 Est GFR (Non-Af Amer) > 60 BUN/Creatinine Ratio 11 Glucose 106 H Calculated Osmolality 291 Calcium 8.8 C. difficile Tox (PCR) Negative
[2016-12-16 11:17] VITALS: BP 146/77
--- NOTE | 2016-12-16 11:18 | Physician Discharge Referral ---
Home Health/Hosp Referral Info Transfer to: Home Health Attending Provider: Dr. Ashanti Fuchs Provider in Charge Post Discharge: PCP - Diagnosis (1) S/P colostomy takedown Priority: Primary Status: Acute (2) Leukocytosis Priority: Secondary Status: Acute (3) COPD (chronic obstructive pulmonary disease) Priority: Secondary Status: Chronic (4) Gastroesophageal reflux disease Priority: Secondary Status: Chronic (5) Hyperlipidemia Priority: Secondary Status: Chronic (6) Essential hypertension Priority: Secondary Status: Chronic (7) DVT prophylaxis Priority: Secondary Status: Acute - Respiratory Orders None - Dressing/Wound Care Site: Abdomen- LUQ wound, RLQ JOSE ANGEL dillon, Midline peter Type of Dressing/Treatments w/Frequency: JOSE ANGEL drain- empty drain 2-3 times per day and as needed if full. Record output and bring record to follow-up appointment on 12/21/16 with Elinor Fajardo. Wash around drain with soap and water and pat dry daily. Apply split 4X4 gauze and tape to secure LUQ wound- wash with soap and water and pat dry, pack open area with 1/4 inch plain gauze, cover with 4X4 and tape to secure. Midline- wash with soap and water and pat dry daily, apply ABD pad and tape to secure daily. - Diet/Nutrition Diet/Nutrition Orders: Regular - Activity Activity Orders: Up ad fiona, Chair - Services Needed Following services are medically necessary services: Nursing Other Treatments: #1 may shower, no tub bath for 2 weeks #2 wash incisions with soap and water and pat dry daily #3 no lifting, pushing, pulling more than 15 pounds for the next 6 weeks #4 no driving until off narcotics for 24 hours and able to safely react in the car #5 may climb stairs #6 JOSE ANGEL drain- empty drain 2-3 times per day and as needed if full. Record output and bring record to follow-up appointment on 12/21/16 with Elinor Fajardo. Wash around drain with soap and water and pat dry daily. Apply split 4X4 gauze and tape to secure #7- LUQ wound- wash with soap and water and pat dry, pack open area with 1/4 inch plain gauze, cover with 4X4 and tape to secure. #8- Midline- wash with soap and water and pat dry daily, apply ABD pad and tape to secure daily. - Transfer Medications Prescriptions: Loperamide [Imodium] 2 mg PO Q4HR PRN #60 capsule PRN Reason: Diarrhea OxyCODONE/APAP 5/325 [Percocet 5/325 MG] 1 each PO Q4HR PRN #30 tablet PRN Reason: Pain Docusate [Colace] 100 mg PO BID PRN #30 capsule PRN Reason: Constipation Home Medications: Tiotropium [Spiriva] 18 mcg [facility] 04/06/16 [History] Multivitamin [One Daily Essential] 1 each PO DAILY 07/06/16 [History] Omeprazole [PriLOSEC] 20 mg PO DAILY 07/06/16 [History] Docusate [Colace] 100 mg PO BID PRN #30 capsule 12/16/16 [Rx] Loperamide [Imodium] 2 mg PO Q4HR PRN #60 capsule 12/16/16 [Rx] OxyCODONE/APAP 5/325 [Percocet 5/325 MG] 1 each PO Q4HR PRN #30 tablet 12/16/16 [Rx] Allergies/Adverse Reactions: Allergies No Known Allergies Allergy (Verified 12/07/16 07:25) Certification: Further, I certify that my clinical findings support that this patient is homebound (i.e. absences from home require considerable and taxing effort and are for medical reasons or yarsanism services or infrequently or short duration when for other reasons) because: Homebound Reason: Patient requires assistance of a person or device to safely leave home, Post-surgery restriction and or conditions limit ability to leave home, Leaving home requires considerable and taxing effort due to condition Attestation: My signature below is to certify that this patient is under my care and that I, or nurse practitioner, or a physician's assistant professor of german working with me, has a face-to -face encounter with this patient.
== END 2016-12-16 15:32 | disposition home health service (06) ==
LOC: SAMDAY 06:09 → 3ANU 14:07
PROVIDERS: ADMIT Surgery; ATTEND Surgery

== ENCOUNTER 2018-01-22 10:42 | Inpatient (IN) ==
[2018-01-22 11:33] LABS: Basophils # 0.1 K/mcL (0.0-0.2); Basophils % 0.7 %; Eosinophils # 0.1 K/mcL (0.0-0.6); Hematocrit 47.3 % (37.5-50.1); Immature Granulocytes % 0.6 % (0-4); Lymphocytes # 1.9 K/mcL (0.6-4.6); Lymphocytes % 23.2 %; Mean Corpuscular HGB Conc 33.8 g/dL (31.6-35.5); Mean Corpuscular Hemoglobin 31.7 pg (28.0-33.3); Mean Corpuscular Volume 93.8 fL (83.0-100.0); Mean Platelet Volume 10.8 fL (9.4-12.4); Monocytes # 0.8 K/mcL (0.0-1.3); Monocytes % 9.4 %; Neutrophils # 5.4 K/mcL (1.6-8.9); Platelet Count 267 K/mcL (140-400); Red Blood Count 5.04 M/mcL (4.19-5.50); Red Cell Distribution Width 12.6 % (11.5-14.5); Segmented Neutrophils % 65.1 %
--- NOTE | 2018-01-22 11:48 | Emergency Department Note ---
Disposition Clinical Impression: Elevated troponin, Chest pain Disposition: Admitted As Inpatient Condition: Good Referrals: Zakiya Franco, [employer] [Primary Care Provider] - Forms: ED Satisfaction Letter Time of Disposition: 13:13 Chest Pain HPI - General Chief Complaint: ED Chest Pain Stated Complaint: Chest Pain/SOB Time Seen by Provider: 01/22/18 11:01 Source: patient Mode of arrival: ambulatory Limitations: no limitations Vital Signs Reviewed: Yes Nursing Notes Reviewed: Yes - History of Present Illness HPI Narrative: 62-year-old male presents emergency room for chest pain. Onset was yesterday. Describes it more of a chest pressure. States it radiates towards his back. He also admits to a cough and shortness of breath. No diaphoresis. No nausea or vomiting. He has no significant cardiac history. No smoking. Denies any fevers. No other complaints. Symptoms seem to be worse with exertion. Better at rest. The pain is intermittent. He describes it more of a pressure at this time. Severity scale (1-10): 8 - Related Data Home Medications Medication Instructions Recorded Confirmed Tiotropium [Spiriva] 18 mcg IH QAM 04/06/16 12/07/16 Multivitamin [One Daily Essential] 1 each PO DAILY 07/06/16 12/07/16 Omeprazole [PriLOSEC] 20 mg PO DAILY 07/06/16 12/07/16 Previous Rx's Medication Instructions Recorded Docusate [Colace] 100 mg PO BID PRN #30 capsule 12/16/16 Loperamide [Imodium] 2 mg PO Q4HR PRN #60 capsule 12/16/16 OxyCODONE/APAP 5/325 [Percocet 1 each PO Q4HR PRN #30 tablet 12/16/16 5/325 MG] Amoxicillin/Clavulanate [Augmentin] 875 mg PO BIDWM #20 tablet 12/19/16 Chlorpheniramine/Dextromethorp 1 each PO QID PRN #24 tablet 12/19/16 [Coricidin Hbp Cough & Cold Tab] Allergies Allergy/AdvReac Type Severity Reaction Status Date / Time No Known Allergies Allergy Verified 12/07/16 07:25 All systems ED: reviewed and negative except as stated. Constitutional: Reports: as per HPI Eyes: Reports: as per HPI ENT ED: Reports: as per HPI Cardiovascular: Reports: chest pain Respiratory: Reports: cough Gastrointestinal: Reports: as per HPI. Denies: nausea, vomiting Genitourinary: Reports: as per HPI Musculoskeletal: Reports: back pain Integumentary: Reports: as per HPI Neurological: Reports: as per HPI Psychiatric: Reports: as per HPI Endocrine: Reports: as per HPI Hematological/Lymphatic: Reports: as per HPI Allergic/Immunologic: Reports: as per HPI Chest Pain PMH - Past Medical History Medical history: Reports: asthma, COPD, GERD, hypertension Surgical history: Reports: cholecystectomy, other Psychiatric history: Reports: no psych history - Social History Smoking Status: Never smoker Alcohol use: Reports: none Drug use: Reports: none Physical Exam - General Limitations: no limitations General appearance: alert - Head Head exam: atraumatic, normocephalic - Eye Eye exam: Present: normal appearance - ENT ENT exam: normal exam - Neck Neck exam: Present: normal inspection - Chest Chest inspection: Present: normal inspection, symmetric chest wall rise. Absent : tenderness - Respiratory Respiratory exam: Present: normal lung sounds bilaterally. Absent: respiratory distress, wheezes, stridor, accessory muscle use, prolonged expiratory phase - Cardiovascular Cardiovascular exam: Present: regular rate, normal rhythm, normal heart sounds - Abdominal Exam Abdominal exam: Present: soft, Non-Tender, normal bowel sounds - Expanded Lower Extremity Exam Hip/Pelvis exam: Present: normal inspection - Back Exam Back exam: Present: normal inspection - Neurological Exam Neurological exam: Present: alert, oriented X3 - Psychiatric Psychiatric exam: Present: normal affect, normal mood - Skin Skin exam: Present: warm, dry, intact Course Vital Signs Temperature 97.9 F 01/22/18 10:53 Pulse Rate 69 01/22/18 10:53 Respiratory Rate 18 01/22/18 10:53 Blood Pressure 146/84 01/22/18 10:53 O2 Sat by Pulse Oximetry 96 01/22/18 10:53 Temperature 97.9 F 01/22/18 10:53 Pulse Rate 57 01/22/18 12:40 Respiratory Rate 16 01/22/18 12:20 Blood Pressure 127/83 01/22/18 12:40 O2 Sat by Pulse Oximetry 97 01/22/18 12:20 Oxygen Delivery Oxygen Delivery Room Air Chest Pain - MDM Narrative Medical decision making narrative: Patient with elevated troponin. Was started on heparin drip. Consult with cardiology who was okay with the current plan. There is been no EKG changes on both EKGs. Patient will be admitted to the hospitalist. He was also given aspirin and nitroglycerin. - Medical Records Medical records reviewed: Yes I reviewed the patient's medical records. - Lab Data Lab results reviewed: Yes I reviewed the patient's lab results. Result diagrams: 01/22/18 11:29 01/22/18 12:19 Lab Results 01/22/18 01/22/18 01/22/18 Range/Units 10:58 10:58 11:29 WBC 8.3 (4.3-11.1) K/mcL RBC 5.04 (4.19-5.50) M/mcL Hgb 16.0 (12.9-16.9) g/dL Hct 47.3 (37.5-50.1) % MCV 93.8 (83.0-100.0) fL MCH 31.7 (28.0-33.3) pg MCHC 33.8 (31.6-35.5) g/dL RDW 12.6 (11.5-14.5) % Plt Count 267 (140-400) K/mcL MPV 10.8 (9.4-12.4) fL Immature Gran % 0.6 (0-4) % Seg Neutrophils % 65.1 % Lymphocytes % 23.2 % Monocytes % 9.4 % Eosinophils % 1.0 % Basophils % 0.7 % Neutrophils # 5.4 (1.6-8.9) K/mcL Lymphocytes # 1.9 (0.6-4.6) K/mcL Monocytes # 0.8 (0.0-1.3) K/mcL Eosinophils # 0.1 (0.0-0.6) K/mcL Basophils # 0.1 (0.0-0.2) K/mcL PT (9.4-12.1) Seconds INR APTT (26.0-36.0) Seconds Sodium Cancelled Potassium Cancelled Chloride Cancelled Carbon Dioxide Cancelled BUN Cancelled Creatinine Cancelled Est GFR ( Amer) Cancelled Est GFR (Non-Af Amer) Cancelled BUN/Creatinine Ratio Cancelled Glucose Cancelled Calculated Osmolality Cancelled Calcium Cancelled Total Bilirubin Cancelled Direct Bilirubin Cancelled Indirect Bilirubin Cancelled AST Cancelled ALT Cancelled Alkaline Phosphatase Cancelled Troponin I 0.19 H* (< 0.04) ng/mL B-Natriuretic Peptide (Less than 100) pg/mL Serum Total Protein Cancelled Albumin Cancelled Globulin Cancelled Albumin/Globulin Ratio Cancelled Specimen Rejected Hemolyzed 01/22/18 01/22/18 01/22/18 Range/Units 11:29 12:19 12:19 WBC (4.3-11.1) K/mcL RBC (4.19-5.50) M/mcL Hgb (12.9-16.9) g/dL Hct (37.5-50.1) % MCV (83.0-100.0) fL MCH (28.0-33.3) pg MCHC (31.6-35.5) g/dL RDW (11.5-14.5) % Plt Count (140-400) K/mcL MPV (9.4-12.4) fL Immature Gran % (0-4) % Seg Neutrophils % % Lymphocytes % % Monocytes % % Eosinophils % % Basophils % % Neutrophils # (1.6-8.9) K/mcL Lymphocytes # (0.6-4.6) K/mcL Monocytes # (0.0-1.3) K/mcL Eosinophils # (0.0-0.6) K/mcL Basophils # (0.0-0.2) K/mcL PT 12.0 (9.4-12.1) Seconds INR 1.1 APTT 30.8 (26.0-36.0) Seconds Sodium 139 Potassium 4.1 Chloride 106 Carbon Dioxide 27 BUN 14 Creatinine 1.05 Est GFR ( Amer) > 60 Est GFR (Non-Af Amer) > 60 BUN/Creatinine Ratio 13 Glucose 115 H Calculated Osmolality 289 Calcium 9.5 Total Bilirubin 0.8 Direct Bilirubin 0.2 Indirect Bilirubin 0.6 AST 25 ALT 30 Alkaline Phosphatase 69 Troponin I (< 0.04) ng/mL B-Natriuretic Peptide 28 (Less than 100) pg/mL Serum Total Protein 6.8 Albumin 4.1 Globulin 2.7 Albumin/Globulin Ratio 1.5 Specimen Rejected - Radiology Data Radiology results reviewed: Yes I reviewed the patient's radiology results. - EKG Data EKG attestation: Yes I reviewed and interpreted this EKG. EKG results narrative: EKG shows a rate of 64. Normal sinus rhythm. Left axis deviation. IL interval 160. QRS 96. QTC 385. No significant changes as compared to previous EKG from 2017. Repeat EKG shows a rate of 73. Normal sinus rhythm. Left axis. IL interval 181. QRS 90. QTC 409. Critical Care Time Critical Care Time: Yes Total Critical Care Time: 30 Attestation: Total critical care time of 30 minutes
[2018-01-22] MEDS ORDERED: Aspirin 325 MG TABLET PO ONE (12:07)
[2018-01-22] MEDS ORDERED: Nitroglycerin 0.4 MG TAB.SUBL SL PRN (12:13)
[2018-01-22] MEDS ORDERED: *HR* Heparin 5,000 UNIT/ML VIAL IVP PRN ×2 (12:17)
[2018-01-22] MEDS ORDERED: *HR* Heparin 5,000 UNIT/ML VIAL IVP ONE (12:17)
[2018-01-22 12:40] LABS: INR 1.1
[2018-01-22 12:43] LABS: Activated Partial Thrombo Time 30.8 Seconds (26.0-36.0)
[2018-01-22 12:47] LABS: Alanine Aminotransferase 30 Units/L (7-52); Albumin 4.1 g/dL (3.5-5.7); Albumin/Globulin Ratio 1.5 (1.1-2.2); Alkaline Phosphatase 69 Units/L (34-104); Aspartate Amino Transferase 25 Units/L (13-39); BUN/Creatinine Ratio 13 (6-26); Bilirubin,Direct 0.2 mg/dL (0.0-0.2); Bilirubin,Indirect 0.6 mg/dL (0.0-1.2); Bilirubin,Total 0.8 mg/dL (0.3-1.0); Blood Urea Nitrogen 14 mg/dL (8-23); Calcium 9.5 mg/dL (8.6-10.3); Carbon Dioxide 27 mEq/L (23-29); Chloride 106 mEq/L (98-107); Globulin 2.7 g/dL (2.4-3.5); Glucose 115 mg/dL (70-105); Osmolality,Calculated 289 (280-300); Potassium 4.1 mEq/L (3.5-5.1); Sodium 139 mEq/L (136-145); Total Protein 6.8 g/dL (6.4-8.9); eGFR For African Americans > 60 (> 60); eGFR For Non-African Americans > 60 (> 60)
[2018-01-22] MEDS: Heparin 25,000 UNIT/500 ML D5W 25,000 UNIT/500 ML BAG IVC SCH (13:01)
[2018-01-22] MEDS ORDERED: Acetaminophen 325 MG TABLET PO PRN (14:48)
[2018-01-22] MEDS ORDERED: Naloxone 0.4 MG/ML INJ IVP PRN (14:48)
[2018-01-22] MEDS ORDERED: *HR* FentaNYL (PF) 100 MCG/2 ML VIAL IVP PRN (15:50)
--- NOTE | 2018-01-22 16:29 | Internal Med History&Physical ---
<Fauzia Ellis M - Last Filed: 01/22/18 16:24> Date of Encounter: 01/22/18 Time of Encounter: 16:24 Assessment and Plan (1) NSTEMI (non-ST elevated myocardial infarction) Current visit: Yes Status: Acute Patient presents with chest pain, troponin was elevated to 0.19. EKG showed no changes. BNP was normal at 28. CXR was WNL. Continue heparin drip Cardiology consulted serial troponins for trend Echocardiogram NPO after midnight for probably cardiac cath tomorrow. Nitro PRN for chest pain, Fentanyl PRN for chest pain unrelieved by nitro. (2) HTN (hypertension) Current visit: Yes Status: Chronic Patient reports history of HTN, but not taking any medication at home. Metoprolol 12.5mg PRN for blood pressure > 160/90. Qualifiers: Hypertension type: essential hypertension Qualified Code(s): I10 - Essential (primary) hypertension (3) COPD (chronic obstructive pulmonary disease) Current visit: No Status: Chronic Patient reports history of COPD, but does not take anything at home. No exacerbation today. Maintain O2 saturation > 92%. Consider adding bronchdilator if patient develops symptoms. Qualifiers: COPD type: unspecified COPD Qualified Code(s): J44.9 - Chronic obstructive pulmonary disease, unspecified (4) DVT prophylaxis Current visit: Yes Status: Acute anti-embolic stockings. Patient on heparin drip for NSTEMI, additional pharmacologic prophylaxis not indicated. Internal Medicine - H&P: HPI Chief complaint: chest pain Admitted From: Emergency Dept Plans for Post Hospital Care: Home History of present illness: Mr. Teran is a 62 year old male with history of COPD, GERD, hypertension, diverticulitis with colostomy and reversal, cholecystectomy presented to the emergency department today with chest pain. Patient reports that he has been having chest pressure for about 3 days but did not tell anybody and it got worse yesterday. He describes it as intense pressure radiating to his back. He tried walking in his driveway overnight to see if it would go away. He reports he felt better with walking, but the pain did not go away. He does report feeling lightheaded today as well. He reports he has had increased swelling in his lower extremities since last week. Evaluation in the emergency department revealed elevated troponin of 0.19. His EKG showed no significant changes from previous. His BNP was normal at 28. Chemistry was grossly normal. CBC was grossly normal. Chest x-ray was within normal limits. He was started on a heparin drip and cardiology was consulted. On exam, patient alert and oriented, in no acute distress. Heart had regular rate and rhythm. Lungs are clear bilaterally to auscultation. He had trace to +1 bilateral lower extremity edema. Good peripheral pulses. Past Med Surg Social Fam HX - Past Medical History Medical history: asthma, COPD, GERD, hypertension Psychiatric history: no psych history - Past Surgical History Surgical History: cholecystectomy, colectomy, colostomy, orthopedic, other, other - Social History Smoking Status: Former smoker Smokeless Tobacco Status: No Alcohol use: none Drug use: none - Family History Mother Living Status: Hx Family Cardiac Disorders: Yes Hx Family Respiratory Disorders: No Hx Family Cancer: No Hx Family GI Disorders: No Hx Family Genitourinary Disorders: No Hx Family Endocrine Disorder: No Hx Family Musculoskeletal Disorders: No Hx Family Neuromuscular Disorders: No Hx Family Neurologic Disorders: No Hx Family HEENT Disorders: No Hx Family Autoimmune Disorders: No Hx Family Reproductive Disorders: No Hx Family Psychosocial Disorders: No Hx Family Medical Disorders: No Internal Medicine - H&P: Meds Multivitamin [One Daily Essential] 1 tab PO DAILY 07/06/16 [History] Omeprazole [PriLOSEC] 20 mg PO DAILY 07/06/16 [History] OxyCODONE/APAP 5/325 [Percocet 5/325 MG] 1 tab PO Q4HR PRN 01/22/18 [History] 3 Allergy/AdvReac Type Severity Reaction Status Date / Time No Known Allergies Allergy Verified 12/07/16 07:25 All Systems PM: A 10-system review of systems was performed and is negative for pertinent findings except as documented above in the HPI. - Constitutional Constitutional: no chills, no fever(s), no night sweats - EENT Eyes: no change in vision, no discharge, no pain, no photophobia Ears: no ear discharge, no ear pain, no tinnitus Nose, mouth and throat: no dysphagia, no nasal discharge, no neck pain, no sore throat - Cardiovascular Cardiovascular ROS IM: chest pain, lightheadedness, no diaphoresis, no dyspnea, no palpitations, no syncope - Respiratory Respiratory: no cough, no dyspnea, no wheezing, no excessive phlegm production - Gastrointestinal Gastrointestinal: no abdominal pain, no diarrhea, no hematemesis, no hematochezia, no melena, no nausea, no vomiting - Musculoskeletal Musculoskeletal ROS IM: no numbness, no tingling - Integumentary Integumentary IM: no rash, no unusual bruising - Neurological Neurological ROS: no confusion, no convulsions, no focal weakness, no numbness, no tingling, no tremor(s) - Hematologic/Lymphatic Hematologic/Lymphatic: no easy bruising - Constitutional Vitals: Temp Pulse Resp BP Pulse Ox 97.8 F 60 17 139/86 93 01/22/18 15:03 01/22/18 15:03 01/22/18 15:03 01/22/18 15:03 01/22/18 15:03 General appearance: Present: A&O X 3, no acute distress, answers questions appropriately - Head Head exam: Present: atraumatic, normocephalic - Eye Eye exam: Present: PERRL, conjuntiva pink, sclera anicteric Pupils: Present: PERRL - Neck Neck exam general surgery: Present: supple, trachea midline. Absent: lymphadenopathy - Respiratory Respiratory exam: Present: CTAB. Absent: accessory muscle use, rales, rhonchi, wheezes - Cardiovascular Cardiovascular exam: Present: RRR, +S1, +S2. Absent: diastolic murmur, gallop, rubs, systolic murmur - GI/Abdominal GI/Abdominal exam: Present: normal bowel sounds, soft, no peritoneal signs. Absent: distended, tenderness - Extremities Exam Extremities exam: Present: pedal edema (1+ BLE), warm, radial pulses palpable and symmetrical. Absent: calf tenderness, cyanotic - Neurological Exam Neurological exam: Present: CN II-XII intact, oriented X3, no focal deficits. Absent: pronater drift, facial droop, speech deficit - Skin Skin exam: Present: dry, intact Internal Med - H&P Results - Labs CBC & Chem 7: 01/22/18 11:29 01/22/18 12:19 - Diagnostic Studies Chest x-ray Additional comments: Chest X-Ray 01/22/18 10:58 IMPRESSION: 1. No acute radiographic abnormality in the chest. D/ / Trenton Avelar MD / Trenton Avelar MD Interpreting Provider: Trneton Avelar MD <Conrad Xie - Last Filed: 01/22/18 19:46> Date of Encounter: 01/22/18 Internal Medicine - H&P: HPI History of present illness: Mr. Teran is a 62 year old male All Systems PM: A 10-system review of systems was performed and is negative for pertinent findings except as documented above in the HPI. - Constitutional Vitals: Temp Pulse Resp BP Pulse Ox 98.1 F 58 16 124/75 95 01/22/18 19:00 01/22/18 19:00 01/22/18 19:00 01/22/18 19:00 01/22/18 19:00 Internal Med - H&P Results - Labs CBC & Chem 7: 01/22/18 11:29 01/22/18 12:19 Labs: Cardiac Enzymes 01/22/18 Range/Units 17:12 Troponin I 0.20 H* (< 0.04) ng/mL - Attending Attestation I have personally performed a face to face evaluation on this patient. I have reviewed and agree with the care plan. History and Exam by me shows: Patient presented to the hospital for evaluation of chest pain. Currently the pain is very mild, almost gone. On exam he is in no acute distress awake alert oriented, speaking in full sentences. Heart is regular. Lungs are clear. EKG shows normal sinus rhythm with nonspecific changes. Troponin was elevated to 0.19. Assessment: Non-ST elevation [place]. Plan: Telemetry. Transient troponin. Consult cardiology. Heparin drip. He is at high risk for morbidity, mortality and complications due to IV heparin continuous infusion which requires intensive blood work monitoring for coagulation parameters. Conrad Xie MD
[2018-01-22 18:52] LABS: Amphetamine Screen,Urine Negative ng/mL (Cutoff=1000); Barbiturate Screen,Urine Negative ng/mL (Cutoff=200); Benzodiazepines Screen,Urine Negative ng/mL (Cutoff=200); Cannabinoid Screen,Urine Negative ng/mL (Cutoff = 50); Cocaine Screen,Urine Negative ng/mL (Cutoff= 300); Opiate Screen,Urine Negative ng/mL (Cutoff=300); Phencyclidine Screen,Urine Negative ng/mL (Cutoff=25)
[2018-01-23 02:33] LABS: INR 1.2; Prothrombin Time 12.5 Seconds (9.4-12.1)
[2018-01-23 02:39] LABS: Activated Partial Thrombo Time 76.2 Seconds (26.0-36.0)
[2018-01-23 05:19] LABS: Basophils # 0.1 K/mcL (0.0-0.2); Basophils % 0.6 %; Eosinophils # 0.2 K/mcL (0.0-0.6); Eosinophils % 2.6 %; Hematocrit 43.5 % (37.5-50.1); Hemoglobin 14.7 g/dL (12.9-16.9); Immature Granulocytes % 0.6 % (0-4); Immature Platelets 5.5 % (1.1-6.1); Lymphocytes # 2.8 K/mcL (0.6-4.6); Mean Corpuscular HGB Conc 33.8 g/dL (31.6-35.5); Mean Corpuscular Hemoglobin 31.5 pg (28.0-33.3); Mean Corpuscular Volume 93.1 fL (83.0-100.0); Mean Platelet Volume 10.8 fL (9.4-12.4); Monocytes # 0.8 K/mcL (0.0-1.3); Monocytes % 10.1 %; Neutrophils # 4.1 K/mcL (1.6-8.9); Platelet Count 248 K/mcL (140-400); Red Blood Count 4.67 M/mcL (4.19-5.50); Red Cell Distribution Width 12.8 % (11.5-14.5); Segmented Neutrophils % 51.1 %
[2018-01-23 05:32] LABS: Alanine Aminotransferase 29 Units/L (7-52); Albumin 3.9 g/dL (3.5-5.7); Albumin/Globulin Ratio 1.4 (1.1-2.2); Alkaline Phosphatase 61 Units/L (34-104); Aspartate Amino Transferase 24 Units/L (13-39); BUN/Creatinine Ratio 12 (6-26); Bilirubin,Total 0.9 mg/dL (0.3-1.0); Blood Urea Nitrogen 12 mg/dL (8-23); Carbon Dioxide 27 mEq/L (23-29); Chloride 106 mEq/L (98-107); Cholesterol 203 mg/dL (< 200); Globulin 2.7 g/dL (2.4-3.5); Glucose 103 mg/dL (70-105); HDL Cholesterol 34 mg/dL (40-59); LDL Cholesterol,Calculated 144 mg/dL (0-99); Osmolality,Calculated 288 (280-300); Potassium 3.5 mEq/L (3.5-5.1); Sodium 139 mEq/L (136-145); Total Protein 6.6 g/dL (6.4-8.9); Triglycerides 124 mg/dL (< 150); eGFR For African Americans > 60 (> 60); eGFR For Non-African Americans > 60 (> 60)
[2018-01-23] MEDS: Heparin 25,000 UNIT/500 ML D5W 25,000 UNIT/500 ML BAG IVC SCH ×2 (07:13→23:41)
[2018-01-23] MEDS: Multivit/Ca/Min/Fe/FA 1 TAB TABLET PO SCH (09:03)
--- NOTE | 2018-01-23 09:22 | Cardiology Consult Note ---
Date of Encounter: 01/23/18 Time of Encounter: 09:20 Assessment and Plan (1) NSTEMI (non-ST elevated myocardial infarction) Current Visit: Yes Status: Acute Exertional angina associated with orthopnea. Positive troponin's with peak at .20. Risks benefits and alternatives were discussed with the patient and he agrees to proceed with a left heart cath. With his complaints of orthopnea and lower extremity edema I feel mild diuresis and IV heparin/aspirin Plavix in preparation for his left heart cath tomorrow. Echo also is still pending. Currently not having any chest pain Discussion w patient/family: The assessment and plan as outlined above was discussed with the patient and/or family members who expressed understanding and agreement. All questions were answered. Thank you for involving us in the care of your patient. Please call with any questions. History of Present Illness Consult date: 01/23/18 Consult reason: NSTEMI Chief complaint: chest pain History of present illness: Mr. Teran is a 62 year old male with history of COPD, Gerd, hypertension and chest pain for the last 3 days. He describes his chest pain has heaviness epigastric radiating to his back associated with shortness of breath. He also complains of discount exertion in orthopnea recently. His chest x-rays unremarkable and his troponin's are .2 and .19. EKG shows nonspecific changes Past Med Surg Social Fam HX - Past Medical History Medical history: asthma, COPD, GERD, hypertension Psychiatric history: no psych history - Past Surgical History Surgical History: cholecystectomy, colectomy, colostomy, orthopedic, other, other - Social History Smoking Status: Former smoker Smokeless Tobacco Status: No Alcohol use: none Drug use: none - Family History Mother Living Status: Hx Family Cardiac Disorders: Yes Hx Family Respiratory Disorders: No Hx Family Cancer: No Hx Family GI Disorders: No Hx Family Genitourinary Disorders: No Hx Family Endocrine Disorder: No Hx Family Musculoskeletal Disorders: No Hx Family Neuromuscular Disorders: No Hx Family Neurologic Disorders: No Hx Family HEENT Disorders: No Hx Family Autoimmune Disorders: No Hx Family Reproductive Disorders: No Hx Family Psychosocial Disorders: No Hx Family Medical Disorders: No Medications and Allergies Multivitamin [One Daily Essential] 1 tab PO DAILY 07/06/16 [History] Omeprazole [PriLOSEC] 20 mg PO DAILY 07/06/16 [History] OxyCODONE/APAP 5/325 [Percocet 5/325 MG] 1 tab PO Q4HR PRN 01/22/18 [History] 3 Allergy/AdvReac Type Severity Reaction Status Date / Time No Known Allergies Allergy Verified 12/07/16 07:25 All Systems Review: The remainder of the systems were reviewed and are negative Physical Examination Vital Signs, Last 4 Hours Temp Pulse Resp BP Pulse Ox 01/23/18 07:35 98.3 F 69 16 125/67 93 General: Conversant, No Apparent Distress HEENT: Atraumatic, Normocephaly, Mucus Membranes Moist Neck: No JVD, Normal carotid pulses Cardiac: Reg Rate and Rhythm, Normal S1 and S2, No Murmur Lungs: Normal Breath Sounds, No Wheeze, Rales, Rhonchi Neuro: Alert and responsive, No focal deficits noted Abdomen: Soft, Non-Tender Skin: No rashes noted on visualized skin Musculoskeletal: No Chest Wall Tenderness Extremities: No Cyanosis, No Edema (lisa LE edema), Normal Pulses Results 01/23/18 04:42 01/23/18 04:42 Lab Results 01/22/18 01/22/18 01/22/18 17:12 19:37 22:53 WBC Hgb Hct Plt Count INR APTT 37.9 H Sodium Potassium Chloride Carbon Dioxide BUN Creatinine Glucose Calcium Total Bilirubin AST ALT Alkaline Phosphatase Troponin I 0.20 H* 0.21 H* 01/23/18 01/23/18 01/23/18 01:47 04:42 04:42 WBC 8.1 Hgb 14.7 Hct 43.5 Plt Count 248 INR 1.2 APTT 76.2 H D Sodium 139 Potassium 3.5 Chloride 106 Carbon Dioxide 27 BUN 12 Creatinine 1.03 Glucose 103 Calcium 9.0 Total Bilirubin 0.9 AST 24 ALT 29 Alkaline Phosphatase 61 Troponin I 01/23/18 01/23/18 04:42 08:07 WBC Hgb Hct Plt Count INR APTT 68.8 H Sodium Potassium Chloride Carbon Dioxide BUN Creatinine Glucose Calcium Total Bilirubin AST ALT Alkaline Phosphatase Troponin I 0.19 H* Consult Discharge Plan - Plan Referrals: Zakiya Franco, [employer] [Primary Care Provider] -
[2018-01-23] MEDS: Aspirin 81 MG TAB.CHEW PO SCH (11:35)
[2018-01-23] MEDS: Ondansetron 4 MG/2 ML VIAL IVP PRN (17:17)
--- NOTE | 2018-01-23 17:37 | Internal Med Progress Note ---
Date of Encounter: 01/23/18 Time of Encounter: 11:00 - Assessment and plan (1) NSTEMI (non-ST elevated myocardial infarction) Current Visit: Yes Status: Acute Assessment and plan: Patient with chest pain in addition to elevated troponins. Cardiology following with plans for left heart catheterization on 01/24/18 Will give nitroglycerin as needed and continue heparin drip with Plavix and aspirin (2) Essential hypertension Current Visit: No Status: Chronic Assessment and plan: Controlled; continue beta palak (3) Hyperlipidemia Current Visit: No Status: Chronic Assessment and plan: Continue statin Qualifiers: Hyperlipidemia type: unspecified Qualified Code(s): E78.5 - Hyperlipidemia , unspecified (4) Morbid obesity with BMI of 40.0-44.9, adult Current Visit: No Status: Chronic Assessment and plan: BMI of 41.4 (5) DVT prophylaxis Current Visit: Yes Status: Acute Assessment and plan: On heparin drip - Subjective Interval history: Patient with continued chest pressure this morning Plans for left heart catheterization on 01/24/18 - Constitutional Vitals: Temp Pulse Resp BP Pulse Ox 98.1 F 62 18 118/68 93 01/23/18 15:44 01/23/18 15:44 01/23/18 15:44 01/23/18 15:44 01/23/18 15:44 General appearance: Present: A&O X 3, no acute distress, answers questions appropriately - Respiratory Respiratory exam: Present: CTAB. Absent: accessory muscle use, rales, rhonchi, wheezes - Cardiovascular Cardiovascular exam: Present: RRR, +S1, +S2. Absent: diastolic murmur, gallop, rubs, systolic murmur Internal Medicine: Result - Labs CBC & Chem 7: 01/23/18 04:42 01/23/18 04:42 Labs: Short CBC 01/23/18 Range/Units 04:42 WBC 8.1 (4.3-11.1) K/mcL Hgb 14.7 (12.9-16.9) g/dL Hct 43.5 (37.5-50.1) % Plt Count 248 (140-400) K/mcL Neutrophils # 4.1 (1.6-8.9) K/mcL BMP 01/23/18 04:42 Sodium 139 Potassium 3.5 Chloride 106 Carbon Dioxide 27 BUN 12 Creatinine 1.03 Glucose 103 Calcium 9.0 Cardiac Enzymes 01/22/18 01/22/18 01/23/18 Range/Units 17:12 22:53 04:42 Troponin I 0.20 H* 0.21 H* 0.19 H* (< 0.04) ng/mL Liver Function 01/23/18 Range/Units 04:42 Total Bilirubin 0.9 (0.3-1.0) mg/dL AST 24 (13-39) Units/L ALT 29 (7-52) Units/L Alkaline Phosphatase 61 (34-104) Units/L Albumin 3.9 (3.5-5.7) g/dL - ABG Interpretation ABG results: PT/INR, D-dimer PT 12.5 Seconds (9.4-12.1) H 01/23/18 01:47 Consult Discharge Plan - Plan Referrals: Zakiya Franco, [employer] [Primary Care Provider] -
[2018-01-24] MEDS: Multivit/Ca/Min/Fe/FA 1 TAB TABLET PO SCH (08:23)
[2018-01-24] MEDS: Aspirin 81 MG TAB.CHEW PO SCH (08:23)
--- NOTE | 2018-01-24 10:42 | Event Note ---
Date of Encounter: 01/24/18 Time of Encounter: 10:39 - Cardiology Event Note Planning for [facility] today for NSTEMI. Noted patient is DNRCCA. Per hospital policy patient will need to be Full code for 24 hours during and after procedure including CPR and intubation if needed . Discussed with patient and family and he agrees with full code status.
[2018-01-24] MEDS ORDERED: Nitroglycerin 1,000 MCG/10 ML VIAL IV ONE (10:59)
[2018-01-24] MEDS ORDERED: *HR* Heparin 10,000 UNIT/10 ML VIAL ONE (10:59)
[2018-01-24] MEDS ORDERED: Heparin 1,000 UNITS/500 mL 500 ML ONE (10:59)
[2018-01-24] MEDS ORDERED: 0.9 % Sodium Chloride 1,000 ML ONE ×2 (10:59→11:37)
[2018-01-24] MEDS ORDERED: ISOVUE-370 200 ML INFUS..BTL IV ONE (10:59)
[2018-01-24] MEDS ORDERED: *HR* Midazolam HCl 2 MG/2 ML VIAL ONE (11:37)
[2018-01-24] MEDS ORDERED: *HR* FentaNYL (PF) 100 MCG/2 ML VIAL ONE (11:37)
--- NOTE | 2018-01-24 12:46 | Invasive Diagnostic Lab Proc ---
Name: Yoli Teran Date of Study: 01/24/2018 Date: 1955 Ht: 72.0in Medical Record#: [id number] Age: 62 Wt: 299.83lb Gender: Male BSA: 2.53 Order #: [id number] BMI: 40.61 Physicians Procedure Physician: Carolina Pereira MD Referring MD: Referring MD: Staff Name Position Time In Sites, Fauzia RT (R) Monitor 11:41 AM Bronson Pemberton RT (R) Scrub 11:41 AM Annemarie Stapleton RN Mine Deputy 11:41 AM Milad Cordova RN Nurse 11:41 AM Fauzia Pemberton RT (R) 12:18 PM Indications Indication Non-Stemi Procedures Performed Procedure L HRT ARTERY/VENTRICLE ANGIO Pre-Procedure Checklist Informed consent is complete signed and on chart. H&P is on chart. ID band is on and ID verified with patient. Patient NPO for procedure The procedure was described for the patient and questions were answered. Blood Pressure: 135/68 ECG is on chart. Plan of Care Patient will tolerate the procedure without complications. Adequate level of comfort will be maintained. Hemodynamics will remain stable Patient will recover from procedure without complications. Respiratory function will be maintained. Cardiac rhythm will remain stable. Patient temperature will be maintained. Patient and/or family have verbalized understanding of the procedure. Patient Education Chief Complaint/Reason for Test: Cardiac Cath Developmental Category: Adult (18-64 years) Developmentally Appropriate for Age: Yes Learning Barriers: None Education Needs: Procedure Education Method: Verbal Information Taught: Cardiac Cath Educational Evaluation: Able to repeat information Intravenous Access Time IV Size Location DC'd Fluid/Drip Rate Units RN 20g 1 1/4" Patent On Arrival Rt Wrist 0.9NaCl 25 ml/hr Milad Cordova RN Allergies NO KNOWN DRUG ALLERGIES Vital Signs Time BP (mmHg) HR (bpm) O2 Sat. RR (bpm) LOC 11:45 AM 135 / 83 84 95 % 12 12:28 PM 131 / 69 67 91 % 21 12:33 PM 124 / 72 65 92 % 20 Procedural Medications Time Medication Dose Units Method Given By 11:41 AM Oxygen 2 L/min nasal cannula Milad Cordova RN 11:45 AM Versed 1 mg Intravenous Milad Cordova RN 11:45 AM Fentanyl 50 mcg Intravenous Cordova, Milad RN 11:50 AM Lidocaine 2% 10 ml Subcutaneous Carolina Pereira MD 11:59 AM Versed 0.5 mg Intravenous Milad Cordova RN ASA Classification: CLASS II- Mild systemic disease (i.e. well-controlled diabetes, hypertension, asthma, cigarette smoking) Karen Score Preprocedure Postprocedure Activity 2- Moves 4 extremities sustained head lift Activity 2- Moves 4 extremities sustained head lift Circulation 2- SBP +/= 20 points of pre-anesthetic level Circulation 2- SBP +/= 20 points of pre-anesthetic level Consciousness 2- Awake and alert oriented x 3 Consciousness 2- Awake and alert oriented x 3 O2 Saturation 2- Able to maintain O2 satruation of 92% on room air O2 Saturation 2- Able to maintain O2 satruation of 92% on room air Respiratory 2- Able to deep breathe and cough well Respiratory 2- Able to deep breathe and cough well Total Score 10 Total Score 10 Contrast Agent: Isovue Diagnostic Contrast: 67 ml Total Contrast: 67 ml Fluoro Dose: 350 mGy Activated Clotting Time Time Seconds to Clot 12:15 PM 137 Procedure Log Time Note Enter By 11:41 AM [email or web address] AM Fauzia Cabrera RT (R) Position: Monitor Time in: 11:41 [email or web address] 11:41 AM Bronson Pemberton RT (R) Position: Scrub Time in: 11:41 [email or web address] 11:41 AM Milad Cordova RN Position: demand manager Time in: 11:41 [email or web address] 11:41 AM Patient charges- Angio tray pack, Navilyst 3mm J, Pulse Oximetry and ACIST tubing and transducer [email or web address] 11:41 AM Physician arrived 11:41 [email or web address] 11:41 AM Dmitry and holly completed [email or web address] 11:41 AM Sign in performed according to hospital policy. [email or web address] 11:41 AM Procedure start 11:41 [email or web address] 11:41 AM Hair removed from procedure site in holding area using clippers. Bilateral groin prepped with Chloraprep by Milad Cordova RN, then patient was draped. Skin intact. [email or web address] 11:41 AM Time: 11:41 Oxygen on at 2 L/min per nasal cannula by Milad Cordova RN [email or web address] 11:42 AM CathStat 11:42 AM Vitals capture started with the following parameters, Patient=Adult, Interval=5 min, Initial Gegijjbx=642 mmHg, Deflation Rate=5 mmHg, Cuff placed on Right Arm 11:43 AM NIBP STAT measurement started. 11:45 AM HR=84 bpm, CLUN=163/83 mmhg, SpO2=95.0 %, Resp=12 B/min 11:45 AM Time: 11:45 Versed 1 mg Intravenous Given by Milad Cordova RN tsites 11:45 AM Time: 11:45 Fentanyl 50 mcg Intravenous Given by Milad Cordova RN tsites 11:45 AM Recorded ECG: HR=77 Condition=Condition 1 11:50 AM Case Delayed No tsites 11:50 AM Clinical Presentation: Non-STEMI tsites 11:50 AM Time out performed according to hospital policy tsites 11:50 AM Time: 11:50 10 ml Lidocaine 2% to right groin Subcutaneous Given by Carolina Pereira MD tsites 11:50 AM Micro-Introducer Kit utilized for sheath placement tsites 11:50 AM 4cc of contrast hand injected tsites 11:50 AM Pressure channel 1 zeroed. 11:56 AM Access obtained by percutaneous puncture. 6Fr 10cm Terumo [place] sheath placed in right Femoral artery. [id number] tsites 11:59 AM Time: 11:59 Versed 0.5 mg Intravenous Given by Milad Cordova RN tsites 12:01 PM unable to advance sheath introducers utilized tsites 12:02 PM 5 Fr sheath inserted tsites 12:03 PM 5Fr FR 4 catheter inserted over the wire [facility] tsites 12:03 PM RCA angiography performed in multiple views. tsites 12:03 PM 0.035 145cm Navilyst 3mmJ wire [id number] tsites 12:03 PM Recorded Pressure: Ao, HR=70, Condition=Condition 1 (Aorta) Ao 119/74/95 12:04 PM Lesion found in Mid RCA. Pre Stenosis: 50 Pre CLIF Flow: tsites 12:04 PM wire renserted catheter removed tsites 12:04 PM 5Fr FL 4 catheter inserted over the wire DN tsites 12:04 PM LCA angiography performed in multiple views. tsites 12:05 PM Recorded Pressure: Ao, HR=62, Condition=Condition 1 (Aorta) Ao 119/59/91 12:06 PM Recorded Pressure: Ao, HR=67, Condition=Condition 1 (Aorta) Ao 120/73/94 12:09 PM 5Fr Pigtail catheter inserted over the wire DNC tsites 12:10 PM Recorded Pressure: LV, HR=83, Condition=Condition 1 (Left Ventricle) LV 113/13/14 12:10 PM Recorded Pressure: LV, Ao, HR=88, Condition=Condition 1 (Left Ventricle) LV 119/20/17, (Aorta) Ao 114/58/88 12:10 PM Catheter selectively placed in left ventricle tsites 12:10 PM edp measured tsites 12:10 PM Bolus angiogram of right Ventricle complete: 2 ml/sec for a total of 4 mls tsites 12:12 PM Procedure completed at 12:12 tsites 12:12 PM Sign out completed: Radiation Dose 350 mGy Fluoro Time: 2.1 Isovue 370 - 200ml contrast 67 ml given by Carolina Pereira MD. Complications: NoneCardiac Rehab Consult needed: NoConfirmed administered medications: Yes tsites 12:12 PM Isovue 370 - 200ml,1 Bottle(s) used. tsites 12:15 PM ACT drawn tsites 12:15 PM At 12:15 the ACT was 137 seconds. tsites 12:18 PM Arterial sheath pulled using manual compression and V+ Pad for 15 minutes by Bronson Pemberton RT (R) tsites 12:18 PM Fauzia Pemberton RT (R) Position: Time in: 12:18 tsites 12:19 PM Estimated Blood Loss: less than 20cc tsites 12:19 PM Post ECG NSR tsites 12:19 PM Post Blood Pressure 135/83 tsites 12:20 PM 12:19 Post Pulses Bilateral DP & PT 1+ tsites 12:20 PM Lesion found in Mid LAD. Pre Stenosis: 40 Pre CLIF Flow: tsites 12:21 PM Mid/Distal Left Anterior Descending Coronary Artery and diagonal branches with 40% stenosis. If graft is supplying this area, 0 % stenosis tsites 12:21 PM Right Coronary, Right Posterior Descending Arteries with Right Posterolateral and Acute Marginal branches with 50 % stenosis. If graft is supplying this area, 0 % stenosis tsites 12:21 PM Information taught Cardiac Cath tsites 12:21 PM Education needs Procedure, Plan of Care, and Responsibilities of Patient in Care tsites 12:21 PM Learning barriers :None tsites 12:21 PM Education Methods Verbal tsites 12:21 PM Education evaluation Able to repeat information tsites 12:21 PM Delay to floor No tsites 12:21 PM Family placed in consult room. tsites 12:27 PM Vitals capture started with the following parameters, Patient=Adult, Interval=5 min, Initial Slmzdkwr=839 mmHg, Deflation Rate=5 mmHg, Cuff placed on Right Arm 12:28 PM HR=67 bpm, RNZW=450/69 mmhg, SpO2=91.0 %, Resp=21 B/min 12:28 PM Report given to jim MURRAY Pt taken to 2A Room #44. 12:28 tsites 12:28 PM Delay to floor No tsites 12:33 PM HR=65 bpm, QRLT=804/72 mmhg, SpO2=92 %, Resp=20 B/min 12:36 PM Site status No bleeding/hematoma - Rt Groin as reported by Bronson Pemberton RT (R) at 12:36 tsites 12:36 PM Opsite applied tsites 12:36 PM Patient out of room: 12:36 tsites Complications Complication None Hemodynamics Pressures Site Systolic/A Wave Diastolic/V Wave Mean AO 119 74 95 AO 119 59 91 AO 120 73 94 LV 113 13 14 LV 119 20 17 AO 114 58 88 Post Procedure Information Blood Pressure: 135/83 mmHg Rhythm: NSR Post procedural instructions were given Closure Device Time Device Success/Fail 01/24/2018 12:36:00 PM Manual Compression Successful Site Checks Time Location Status Staff Sheath In? Note 12:36 PM Rt Groin No bleeding/hematoma Bronson Pemberton RT (R) Pulses Time Site Pre-Procedure Post-Procedure Note Bilateral DP & PT 1+ Bilateral radial 2+ 12:19:00 PM Bilateral DP & PT 1+ Updated by Fauzia Cabrera RT (R) on 01/24/2018 12:37:38 PM Fauzia Cabrera RT electronically signed on 01/24/2018 12:38:19 PM with status of Final
--- NOTE | 2018-01-24 13:45 | Event Note ---
Date of Encounter: 02/07/18 Time of Encounter: 13:43 - Cardiology Event Note LHC completed and showed mild-moderate non-obstructive CAD. TTE shows preserved EF. Troponin elevation of unclear significance. Recommend asa, statin, bb. No indication for cardiac rehab. Out-pt f/u in 2-3 weeks recommended.
--- NOTE | 2018-01-24 15:42 | Discharge Summary ---
- NOTES TO OUTPATIENT PROVIDER Notes to Outpatient Provider: Patient is to follow-up with cardiology in 2-3 weeks Date of Encounter: 01/24/18 Time of Encounter: 11:00 - Discharge Diagnosis (1) NSTEMI (non-ST elevated myocardial infarction) Priority: Primary Status: Acute (2) Essential hypertension Priority: Secondary Status: Chronic (3) Hyperlipidemia Priority: Secondary Status: Chronic Qualifiers: Hyperlipidemia type: unspecified Qualified Code(s): E78.5 - Hyperlipidemia , unspecified (4) Morbid obesity with BMI of 40.0-44.9, adult Priority: Secondary Status: Chronic Hospital course: Patient is a 62-year-old male with past medical history significant for COPD, GERD, and hypertension, diverticulitis with colostomy and reversal, who presented to the ER on 01/22/18 with chest pain. Patient reported that he has been having chest pressure for about 3 days but did not tell anybody and it got worse yesterday. He described it as intense pressure radiating to his back. He tried walking in his driveway overnight to see if it would go away. He reported he felt better with walking, but the pain did not go away. He does report feeling lightheaded today as well. He reported that he had increased swelling in his lower extremities for one week. In the ER, patient was found to have an elevated troponin of 0.19. His EKG showed no significant changes from previous. His BNP was normal at 28. He was started on a heparin drip and cardiology was consulted. Patient was admitted to the medical surgical floor for assessment of non-STEMI. During his hospital stay cardiology was consulted with recommendation for left heart catheterization which showed mild to moderate non-obstructive coronary artery disease. Recommendations for patient to continue aspirin and statin and beta palak and to follow-up with cardiology in 2-3 weeks. Discharge discussed with: patient - Time Spent with Patient Total time spent providing and/or coordinating discharge services: Less than 30 minutes - Discharge Medications Prescriptions: Aspirin 81 mg PO DAILY #30 tab.chew Atorvastatin [Lipitor] 40 mg PO HS #30 tablet Metoprolol [Lopressor] 12.5 mg PO BID #60 tablet Home Medications: Multivitamin [One Daily Essential] 1 tab PO DAILY 07/06/16 [History] Omeprazole [PriLOSEC] 20 mg PO DAILY 07/06/16 [History] OxyCODONE/APAP 5/325 [Percocet 5/325 MG] 1 tab PO Q4HR PRN 01/22/18 [History] Aspirin 81 mg PO DAILY #30 tab.chew 01/24/18 [Rx] Atorvastatin [Lipitor] 40 mg PO HS #30 tablet 01/24/18 [Rx] Metoprolol [Lopressor] 12.5 mg PO BID #60 tablet 01/24/18 [Rx] Allergies/Adverse Reactions: 3 Allergy/AdvReac Type Severity Reaction Status Date / Time No Known Allergies Allergy Verified 12/07/16 07:25 Date of admission: 01/22/18 14:48 Primary care physician: Zakiya Franco CNP - Constitutional Vitals: Temp Pulse Resp BP Pulse Ox 98.1 F 61 17 131/72 95 01/24/18 07:40 01/24/18 07:40 01/24/18 07:40 01/24/18 07:40 01/24/18 08:25 General appearance: Present: A&O X 3, no acute distress, answers questions appropriately - Respiratory Respiratory exam: Present: CTAB. Absent: accessory muscle use, rales, rhonchi, wheezes - Cardiovascular Cardiovascular exam: Present: RRR, +S1, +S2. Absent: diastolic murmur, gallop, rubs, systolic murmur - Patient Status Disposition: Home, Self-Care Condition: Good - Discharge Instructions Follow Up With: Zakiya Franco CNP [Primary Care Provider] -
[2018-01-25] MEDS: Multivit/Ca/Min/Fe/FA 1 TAB TABLET PO SCH (08:09)
[2018-01-25] MEDS: Aspirin 81 MG TAB.CHEW PO SCH (08:10)
[2018-01-25] MEDS: Ondansetron 4 MG/2 ML VIAL IVP PRN (11:19)
[2018-01-25 11:38] VITALS: BP 111/69
--- NOTE | 2018-01-25 17:27 | Internal Med Progress Note ---
Date of Encounter: 01/25/18 Time of Encounter: 11:40 - Assessment and plan (1) Chest pain Status: Acute Assessment and plan: Admitted with retrosternal chest pain and mild troponin elevation, peak at 0.2. Has been treated with non-ST elevation [place] protocol with IV heparin, aspirin, Plavix, beta palak and statin. Cardiology was consulted and underwent left heart catheterization, which showed mild to moderate nonobstructive CAD. Patient has been discharged yesterday, however stayed overnight due to inability to achieve hemostasis at right groin/access site for heart catheterization. Currently stable for discharge. Patient has history of GERD, which is the likely reason for chest pain. He is noted to be on PPI and encouraged to continue the same. Qualifiers: Chest pain type: unspecified Qualified Code(s): R07.9 - Chest pain, unspecified (2) Elevated troponin Status: Acute (3) S/P colostomy takedown Status: Acute (4) COPD (chronic obstructive pulmonary disease) Status: Chronic Qualifiers: COPD type: unspecified COPD Qualified Code(s): J44.9 - Chronic obstructive pulmonary disease, unspecified (5) Gastroesophageal reflux disease Status: Chronic Qualifiers: Esophagitis presence: esophagitis presence not specified Qualified Code(s) : K21.9 - Gastro-esophageal reflux disease without esophagitis (6) HTN (hypertension) Status: Chronic Qualifiers: Hypertension type: essential hypertension Qualified Code(s): I10 - Essential (primary) hypertension (7) Morbid obesity with BMI of 40.0-44.9, adult Status: Chronic - Subjective Interval history: Reports feeling well; no chest pain, no further bleeding from right groin; ambulates well; - Constitutional Vitals: Temp Pulse Resp BP Pulse Ox 98.6 F 65 18 111/69 94 01/25/18 11:35 01/25/18 11:35 01/25/18 11:35 01/25/18 11:35 01/25/18 11:35 General appearance: Present: A&O X 3, no acute distress, answers questions appropriately - Respiratory Respiratory exam: Present: CTAB. Absent: accessory muscle use, rales, rhonchi, wheezes - Cardiovascular Cardiovascular exam: Present: RRR, +S1, +S2. Absent: diastolic murmur, gallop, rubs, systolic murmur Internal Medicine: Result - Labs CBC & Chem 7: 01/23/18 04:42 01/23/18 04:42 - ABG Interpretation ABG results: PT/INR, D-dimer PT 12.5 Seconds (9.4-12.1) H 01/23/18 01:47 Consult Discharge Plan - Plan Instructions: Metoprolol (By mouth), Aspirin (By mouth), Atorvastatin (By mouth ), Myocardial Infarction (DC) Referrals: Zakiya Franco, FURNITURE PAINTER [Primary Care Provider] - 02/01/18 10:00 am (Please follow up a sschedule...) Prescriptions: Aspirin 81 mg PO DAILY #30 tab.chew Atorvastatin [Lipitor] 40 mg PO HS #30 tablet Metoprolol [Lopressor] 12.5 mg PO BID #60 tablet
--- NOTE | 2018-01-25 20:00 | Electrocardiograph Report ---
[place] [id number] Test Date: 2018-01-22 Pat Name: Yoli Teran Department: 104 Room: 2A44 Gender: M Database Programmer: : 1955 Requested By: Matt Calevrt Order Number: [id number] Reading MD: Elinor Gaona Measurements Intervals [place] Rate: 64 P: 48 FL: 160 QRS: -26 QRSD: 96 T: 63 QT: 375 QTc: 385 Interpretive Statements SINUS RHYTHM BORDERLINE LEFT AXIS DEVIATION Electronically Signed On 01-25-2018 19:58:23 EST by Elinor Gaona
--- NOTE | 2018-01-25 20:00 | Electrocardiograph Report ---
[place] [address] Test Date: 2018-01-22 Pat Name: Yoli Teran Department: 104 Room: 2A44 Gender: M Design Maker: KATHRYN : 1955 Requested By: Chris Bragg Order Number: [id number] Reading MD: Elinor Gaona Measurements Intervals [place] Rate: 73 P: 58 NC: 181 QRS: -22 QRSD: 90 T: 49 QT: 384 QTc: 409 Interpretive Statements SINUS RHYTHM BORDERLINE LEFT AXIS DEVIATION [QRS AXIS < -20] Electronically Signed On 01-25-2018 19:59:00 EST by Elinor Gaona
== END 2018-01-25 14:37 | disposition home or self-care (01) | DRG 281 ==
LOC: 2ANU 10:42 → EMEROO 10:42 → 2ANU 14:04 → SUATTDRO 14:48
PROVIDERS: ADMIT Internal Medicine; ATTEND Internal Medicine

== ENCOUNTER 2018-02-11 10:40 | Inpatient (IN) ==
--- NOTE | 2018-02-11 10:46 | Emergency Department Note ---
Disposition Clinical Impression: Elevated troponin, NSTEMI (non-ST elevated myocardial infarction), Right arm and right face tingling Chest pain Qualifiers: Chest pain type: unspecified Qualified Code(s): R07.9 - Chest pain, unspecified Disposition: Admitted As Inpatient Condition: Fair Time of Disposition: 18:56 Chest Pain HPI - General Chief Complaint: ED Chest Pain Stated Complaint: chest pain Time Seen by Provider: 02/11/18 10:44 Source: patient, EMS Mode of arrival: EMS Limitations: no limitations Vital Signs Reviewed: Yes Nursing Notes Reviewed: Yes - History of Present Illness HPI Narrative: Patient is a 62-year-old male with past medical history of NSTEMI, COPD. Patient is a poor historian, some details of his medical history have been obtained from most recent note on 01/22/2018. Patient was recently admitted to the hospital due to an STEMI. This was within the past 2 weeks. He had a heart catheter at that time and no stents were placed. He was discharged home with aspirin, Lipitor, Lopressor. Patient presents today due to substernal chest pain with no radiation, no associated nausea. Patient has had some sweating. Rates his pain currently a 6-7 out of 10. He did not take any aspirin or nitroglycerin prior to arrival. He states that his pain started while he was in the garage setting down, was not standing up abruptly, was not exerting himself. Denies any other fever, shortness of breath, cough, abdominal pain, vomiting, diarrhea, nausea. Patient also has a separate complaint of tingling in his right upper extremity that he said began yesterday morning. It comes and goes. He has also had some decreased sensation in his right face and felt that his vision became blurry at one point today and then almost went completely black, he has felt lightheaded and has had near syncope but has not actually passed out. Currently has some mild blurred vision. Denies any other numbness, tingling, weakness, difficulty with ambulation. - Related Data Home Medications Medication Instructions Recorded Confirmed Multivitamin [One Daily Essential] 1 tab PO DAILY 07/06/16 02/11/18 Omeprazole [PriLOSEC] 20 mg PO DAILY 07/06/16 02/11/18 Albuterol Sulfate [Ventolin Hfa] 2 puff IH Q4H PRN 02/11/18 02/11/18 Atenolol [Tenormin] 25 mg PO DAILY 02/11/18 02/11/18 Fluticasone Propionate Nasal 1 spr NS DAILY 02/11/18 02/11/18 [Flonase] Fluticasone/Salmeterol [Advair Hfa 2 puff IH BID 02/11/18 02/11/18 115-21 Mcg Inhaler] Tiotropium [Spiriva] 1 puff IH DAILY 02/11/18 02/11/18 hydroCHLOROthiazide 12.5 mg PO DAILY 02/11/18 02/11/18 [Hydrochlorothiazide] Previous Rx's Medication Instructions Recorded Aspirin 81 mg PO DAILY #30 tab.chew 01/24/18 Atorvastatin [Lipitor] 40 mg PO HS #30 tablet 01/24/18 Allergies Allergy/AdvReac Type Severity Reaction Status Date / Time No Known Allergies Allergy Verified 12/07/16 07:25 All systems ED: reviewed and negative except as stated. Constitutional: Denies: fever Cardiovascular: Reports: chest pain. Denies: palpitations Respiratory: Denies: cough, dyspnea, wheezes Gastrointestinal: Denies: abdominal pain, nausea, vomiting, diarrhea Genitourinary: Denies: urgency, dysuria, frequency Musculoskeletal: Reports: back pain Neurological: Denies: headache, weakness, numbness, paresthesias Chest Pain PMH - Past Medical History Medical history: Reports: asthma, COPD, GERD, hypertension Surgical history: Reports: cholecystectomy, colectomy, colostomy, orthopedic, other, other Psychiatric history: Reports: no psych history - Social History Smoking Status: Former smoker Alcohol use: Reports: none Drug use: Reports: none Physical Exam - General Limitations: no limitations General appearance: alert, in no apparent distress - Head Head exam: atraumatic, normocephalic, normal inspection - Eye Eye exam: Present: normal appearance, PERRL, EOMI - ENT ENT exam: normal exam, normal oropharynx, mucous membranes moist - Neck Neck exam: Present: normal inspection, full ROM, trachea midline - Chest Chest inspection: Present: normal inspection, symmetric chest wall rise - Respiratory Respiratory exam: Present: normal lung sounds bilaterally - Cardiovascular Cardiovascular exam: Present: regular rate, normal rhythm, normal heart sounds - Abdominal Exam Abdominal exam: Present: soft, Non-Tender. Absent: tenderness, distention, guarding, rebound, rigidity - Extremities Exam Extremities exam: Present: normal inspection, full ROM. Absent: tenderness, pedal edema - Neurological Exam Neurological exam: Present: alert, oriented X3, CN II-XII intact. Absent: motor sensory deficit - Psychiatric Psychiatric exam: Present: normal affect, normal mood - Skin Skin exam: Present: warm, dry, intact, normal color Course Course Narrative: Patient only hypertensive. Otherwise, the rest of the vitals were within normal limits. Physical exam was fairly benign. Heart regular rate and rhythm , lungs clear to auscultation, abdomen soft and nontender. We will give the patient aspirin 325, nitroglycerin. We will obtain cardiac workup along with CTA of the head and neck due to concern of tingling and near syncope. 12:56 patient has elevated troponin 0.15. EKG showed no acute ST changes. Chest x-ray was negative for any acute process. CT head and neck currently pending. I talked with cardiology, Dr. Keller, discussed clinical presentation and lab workup. He recommended admission, starting the patient on heparin drip. I will also start the patient on a nitroglycerin drip to see if we get his chest pain down to 0. Patient may require another heart catheterization. Once had imaging his back, will admit for further care for chest pain and elevated troponin, concern for NSTEMI. Nitroglycerin drip has been started. Heparin drip was started, no contraindications to beginning this therapy. Head and neck imaging negative. Patient was admitted to the hospitalist for further care. Angiography CT 02/11/18 10:58 IMPRESSION: 1. No acute intracranial process identified. 2. Unremarkable CTA of the head. D/ / Farzad Little MD / Farzad Little MD Interpreting Provider: Farzad Little MD Neck CTA 02/11/18 10:58 IMPRESSION: 1. No vascular dissection or significant arterial stenosis identified within the neck. 2. Mild atherosclerosis. D/ / 02/11/2018 13:06:05 Farzad Little MD / izaiah Interpreting Provider: Farzad Little MD Chest X-Ray 02/11/18 10:59 IMPRESSION: No acute process. D/ / Miguel Paz MD / Miguel Paz MD Interpreting Provider: Miguel Paz MD Chest X-Ray 02/11/18 10:59 IMPRESSION: No acute process. D/ / Miguel Paz MD / Miguel Paz MD Interpreting Provider: Miguel Paz MD Vital Signs Temperature 98.2 F 02/11/18 10:45 Pulse Rate 64 02/11/18 10:45 Respiratory Rate 18 02/11/18 10:45 Blood Pressure 147/85 02/11/18 10:45 O2 Sat by Pulse Oximetry 95 02/11/18 10:45 Temperature 97.8 F 02/11/18 15:47 Pulse Rate 91 02/11/18 15:47 Respiratory Rate 18 02/11/18 15:47 Blood Pressure 132/83 02/11/18 15:47 O2 Sat by Pulse Oximetry 93 02/11/18 14:23 Oxygen Delivery Oxygen Delivery Room Air Chest Pain - MDM Narrative Medical decision making narrative: Patient only hypertensive. Otherwise, the rest of the vitals were within normal limits. Physical exam was fairly benign. Heart regular rate and rhythm , lungs clear to auscultation, abdomen soft and nontender. We will give the patient aspirin 325, nitroglycerin. We will obtain cardiac workup along with CTA of the head and neck due to concern of tingling and near syncope. 12:56 patient has elevated troponin 0.15. EKG showed no acute ST changes. Chest x-ray was negative for any acute process. CT head and neck currently pending. I talked with cardiology, Dr. Keller, discussed clinical presentation and lab workup. He recommended admission, starting the patient on heparin drip. I will also start the patient on a nitroglycerin drip to see if we get his chest pain down to 0. Patient may require another heart catheterization. Once had imaging his back, will admit for further care for chest pain and elevated troponin, concern for NSTEMI. Nitroglycerin drip has been started. Heparin drip was started, no contraindications to beginning this therapy. Head and neck imaging negative. Patient was admitted to the hospitalist for further care. - Medical Records Medical records reviewed: Yes I reviewed the patient's medical records. - Lab Data Lab results reviewed: Yes I reviewed the patient's lab results. Result diagrams: 02/11/18 11:10 02/11/18 11:10 Lab Results 02/11/18 02/11/18 02/11/18 Range/Units 11:10 11:10 11:10 WBC 7.0 (4.3-11.1) K/mcL RBC 4.77 (4.19-5.50) M/mcL Hgb 15.0 (12.9-16.9) g/dL Hct 45.1 (37.5-50.1) % MCV 94.5 (83.0-100.0) fL MCH 31.4 (28.0-33.3) pg MCHC 33.3 (31.6-35.5) g/dL RDW 12.5 (11.5-14.5) % Plt Count 230 (140-400) K/mcL MPV 11.0 (9.4-12.4) fL Immature Gran % 0.4 (0-4) % Seg Neutrophils % 61.4 % Lymphocytes % 27.0 % Monocytes % 8.8 % Eosinophils % 1.8 % Basophils % 0.6 % Neutrophils # 4.3 (1.6-8.9) K/mcL Lymphocytes # 1.9 (0.6-4.6) K/mcL Monocytes # 0.6 (0.0-1.3) K/mcL Eosinophils # 0.1 (0.0-0.6) K/mcL Basophils # 0.0 (0.0-0.2) K/mcL PT 10.9 (9.4-12.1) Seconds INR 1.0 APTT 30.0 (26.0-36.0) Seconds Sodium 140 (136-145) mEq/L Potassium 3.4 L (3.5-5.1) mEq/L Chloride 105 (98-107) mEq/L Carbon Dioxide 28 (23-29) mEq/L BUN 14 (8-23) mg/dL Creatinine 0.99 (0.70-1.30) mg/dL Est GFR ( Amer) > 60 (> 60) Est GFR (Non-Af Amer) > 60 (> 60) BUN/Creatinine Ratio 14 (6-26) Glucose 152 H (70-105) mg/dL Calculated Osmolality 293 (280-300) Calcium 9.4 (8.6-10.3) mg/dL Troponin I 0.15 H* (< 0.04) ng/mL - Radiology Data Radiology results reviewed: Yes I reviewed the patient's radiology results. Angiography CT 02/11/18 10:58 IMPRESSION: 1. No acute intracranial process identified. 2. Unremarkable CTA of the head. D/ / Farzad Little MD / Farzad Little MD Interpreting Provider: Farzad Little MD Neck CTA 02/11/18 10:58 IMPRESSION: 1. No vascular dissection or significant arterial stenosis identified within the neck. 2. Mild atherosclerosis. D/ / 02/11/2018 13:06:05 Farzad Little MD / izaiah Interpreting Provider: Farzad Little MD Chest X-Ray 02/11/18 10:59 IMPRESSION: No acute process. D/ / Miguel Paz MD / Miguel Paz MD Interpreting Provider: Miguel Paz MD - EKG Data EKG attestation: Yes I reviewed and interpreted this EKG. EKG results narrative: 02/11/18 at 10:46. NSR. Rate 74. MI 160. QRS 100. Left axis deviation. No acute ST elevation or depression. No changes from previous EKG on 02/19/20. Attestation Statement - Attestation Attestation: I, Chris Bragg DO, examined this patient [id number] and my medical decision-making was reviewed with Dr. Terrell Dill, Resident Physician. I agree with the documented findings, disposition and treatment plan as described except to the extent set forth below. Please see my progress notes for details.
[2018-02-11] MEDS ORDERED: Aspirin 81 MG TAB.CHEW PO ONE (10:59)
[2018-02-11] MEDS: Nitroglycerin 0.4 MG TAB.SUBL SL PRN ×2 (11:25→11:30)
[2018-02-11 11:33] LABS: Basophils % 0.6 %; Eosinophils # 0.1 K/mcL (0.0-0.6); Eosinophils % 1.8 %; Hematocrit 45.1 % (37.5-50.1); Immature Granulocytes % 0.4 % (0-4); Lymphocytes # 1.9 K/mcL (0.6-4.6); Mean Corpuscular HGB Conc 33.3 g/dL (31.6-35.5); Mean Corpuscular Hemoglobin 31.4 pg (28.0-33.3); Mean Corpuscular Volume 94.5 fL (83.0-100.0); Monocytes # 0.6 K/mcL (0.0-1.3); Monocytes % 8.8 %; Neutrophils # 4.3 K/mcL (1.6-8.9); Platelet Count 230 K/mcL (140-400); Red Blood Count 4.77 M/mcL (4.19-5.50); Red Cell Distribution Width 12.5 % (11.5-14.5); Segmented Neutrophils % 61.4 %
[2018-02-11 11:39] LABS: Prothrombin Time 10.9 Seconds (9.4-12.1)
[2018-02-11 11:51] LABS: BUN/Creatinine Ratio 14 (6-26); Blood Urea Nitrogen 14 mg/dL (8-23); Calcium 9.4 mg/dL (8.6-10.3); Carbon Dioxide 28 mEq/L (23-29); Chloride 105 mEq/L (98-107); Glucose 152 mg/dL (70-105); Osmolality,Calculated 293 (280-300); Potassium 3.4 mEq/L (3.5-5.1); Sodium 140 mEq/L (136-145); eGFR For African Americans > 60 (> 60); eGFR For Non-African Americans > 60 (> 60)
[2018-02-11 11:56] LABS: Troponin I 0.15 ng/mL (< 0.04)
--- NOTE | 2018-02-11 12:10 | Emergency Department Note ---
Disposition Clinical Impression: Elevated troponin, NSTEMI (non-ST elevated myocardial infarction), Right arm and right face tingling Chest pain Qualifiers: Chest pain type: unspecified Qualified Code(s): R07.9 - Chest pain, unspecified Disposition: Admitted As Inpatient Condition: Fair Referrals: Zakiya Franco CNP [Primary Care Provider] - Time of Disposition: 19:21 General Adult HPI - General Chief complaint: ED Chest Pain Stated complaint: chest pain Time Seen by Provider: 02/11/18 10:44 Source: patient, EMS Mode of arrival: EMS Limitations: no limitations - History of Present Illness Pain Scale: 5 - Related Data Home Medications Medication Instructions Recorded Confirmed Multivitamin [One Daily Essential] 1 tab PO DAILY 07/06/16 02/11/18 Omeprazole [PriLOSEC] 20 mg PO DAILY 07/06/16 02/11/18 Albuterol Sulfate [Ventolin Hfa] 2 puff IH Q4H PRN 02/11/18 02/11/18 Atenolol [Tenormin] 25 mg PO DAILY 02/11/18 02/11/18 Fluticasone Propionate Nasal 1 spr NS DAILY 02/11/18 02/11/18 [Flonase] Fluticasone/Salmeterol [Advair Hfa 2 puff IH BID 02/11/18 02/11/18 115-21 Mcg Inhaler] Tiotropium [Spiriva] 1 puff IH DAILY 02/11/18 02/11/18 hydroCHLOROthiazide 12.5 mg PO DAILY 02/11/18 02/11/18 [Hydrochlorothiazide] Previous Rx's Medication Instructions Recorded Aspirin 81 mg PO DAILY #30 tab.chew 01/24/18 Atorvastatin [Lipitor] 40 mg PO HS #30 tablet 01/24/18 Allergies Allergy/AdvReac Type Severity Reaction Status Date / Time No Known Allergies Allergy Verified 12/07/16 07:25 Constitutional: Denies: fever Cardiovascular: Reports: chest pain. Denies: palpitations Respiratory: Denies: cough, dyspnea, wheezes Gastrointestinal: Denies: abdominal pain, nausea, vomiting, diarrhea Genitourinary: Denies: urgency, dysuria, frequency Musculoskeletal: Reports: back pain Neurological: Denies: headache, weakness, numbness, paresthesias Past Medical History - Past Medical History Medical history: Reports: asthma, COPD, GERD, hypertension Surgical history: Reports: cholecystectomy, colectomy, colostomy, orthopedic, other, other Psychiatric history: Reports: no psych history - Social History Smoking Status: Former smoker Smokeless Tobacco Status: No Alcohol use: Reports: none Drug use: Reports: none Physical Exam - General Limitations: no limitations General appearance: alert, in no apparent distress Course Vital Signs Temperature 98.2 F 02/11/18 10:45 Pulse Rate 64 02/11/18 10:45 Respiratory Rate 18 02/11/18 10:45 Blood Pressure 147/85 02/11/18 10:45 O2 Sat by Pulse Oximetry 95 02/11/18 10:45 Temperature 97.8 F 02/11/18 15:47 Pulse Rate 91 02/11/18 15:47 Respiratory Rate 18 02/11/18 15:47 Blood Pressure 132/83 02/11/18 15:47 O2 Sat by Pulse Oximetry 93 02/11/18 14:23 Oxygen Delivery Oxygen Delivery Room Air Medical Decision Making - Lab Data Result diagrams: 02/11/18 11:10 02/11/18 11:10 Lab Results 02/11/18 02/11/18 02/11/18 Range/Units 11:10 11:10 11:10 WBC 7.0 (4.3-11.1) K/mcL RBC 4.77 (4.19-5.50) M/mcL Hgb 15.0 (12.9-16.9) g/dL Hct 45.1 (37.5-50.1) % MCV 94.5 (83.0-100.0) fL MCH 31.4 (28.0-33.3) pg MCHC 33.3 (31.6-35.5) g/dL RDW 12.5 (11.5-14.5) % Plt Count 230 (140-400) K/mcL MPV 11.0 (9.4-12.4) fL Immature Gran % 0.4 (0-4) % Seg Neutrophils % 61.4 % Lymphocytes % 27.0 % Monocytes % 8.8 % Eosinophils % 1.8 % Basophils % 0.6 % Neutrophils # 4.3 (1.6-8.9) K/mcL Lymphocytes # 1.9 (0.6-4.6) K/mcL Monocytes # 0.6 (0.0-1.3) K/mcL Eosinophils # 0.1 (0.0-0.6) K/mcL Basophils # 0.0 (0.0-0.2) K/mcL PT 10.9 (9.4-12.1) Seconds INR 1.0 APTT 30.0 (26.0-36.0) Seconds Sodium 140 (136-145) mEq/L Potassium 3.4 L (3.5-5.1) mEq/L Chloride 105 (98-107) mEq/L Carbon Dioxide 28 (23-29) mEq/L BUN 14 (8-23) mg/dL Creatinine 0.99 (0.70-1.30) mg/dL Est GFR ( Amer) > 60 (> 60) Est GFR (Non-Af Amer) > 60 (> 60) BUN/Creatinine Ratio 14 (6-26) Glucose 152 H (70-105) mg/dL Calculated Osmolality 293 (280-300) Calcium 9.4 (8.6-10.3) mg/dL Troponin I 0.15 H* (< 0.04) ng/mL 02/11/ Range/Units 15:37 WBC (4.3-11.1) K/mcL RBC (4.19-5.50) M/mcL Hgb (12.9-16.9) g/dL Hct (37.5-50.1) % MCV (83.0-100.0) fL MCH (28.0-33.3) pg MCHC (31.6-35.5) g/dL RDW (11.5-14.5) % Plt Count (140-400) K/mcL MPV (9.4-12.4) fL Immature Gran % (0-4) % Seg Neutrophils % % Lymphocytes % % Monocytes % % Eosinophils % % Basophils % % Neutrophils # (1.6-8.9) K/mcL Lymphocytes # (0.6-4.6) K/mcL Monocytes # (0.0-1.3) K/mcL Eosinophils # (0.0-0.6) K/mcL Basophils # (0.0-0.2) K/mcL PT (9.4-12.1) Seconds INR APTT (26.0-36.0) Seconds Sodium (136-145) mEq/L Potassium (3.5-5.1) mEq/L Chloride (98-107) mEq/L Carbon Dioxide (23-29) mEq/L BUN (8-23) mg/dL Creatinine (0.70-1.30) mg/dL Est GFR ( Amer) (> 60) Est GFR (Non-Af Amer) (> 60) BUN/Creatinine Ratio (6-26) Glucose (70-105) mg/dL Calculated Osmolality (280-300) Calcium (8.6-10.3) mg/dL Troponin I 0.17 H* (< 0.04) ng/mL Critical Care Time Critical Care Time: Yes Total Critical Care Time: 45 Attestation: Critical care performed: Time is exclusive of separately billable procedures. Time includes: direct patient care, patient reassessment, coordination of patient care, interpretation of data (laboratory data, radiology data, and respiratory data), review of patient's medical records, medical consultation and documentation of patient care. Procedures included in critical care time: Procedures excluded from critical care time: Attestation Statement - Attestation Attestation: 62-year-old male seen in conjunction with the resident physician. Presented here today for evaluation of chest pain and symptoms similar to when he was diagnosed with a non-ST segment elevation myocardial infarction. Patient was seen 3 weeks ago and a negative catheterization. An echo done less than a week ago that did show some left ventricular dysfunction. Patient woke up approximately 1 hour prior to coming in the emergency room the symptoms similar to when he was admitted during last treatment course. He denies any nausea vomiting diarrhea. Denies any headache vision change or shortness of breath. Denies any trauma or injury. Currently taking all his home medications as they are prescribed. No other acute issues at this point. Patient is otherwise clinically stable. Was not provided aspirin or nitroglycerin in transit by EMS. Nitroglycerin and aspirin will be given here in the emergency room along with evaluation for cardiac and pulmonary related illness or symptoms. Patient is otherwise resting comfortably in the bed. Physical exam shows a well- appearing male in some mild distress. Lungs are clear heart is regular. He has no reproducible symptoms and palpation of the chest wall. Abdomen is soft nontender nondistended with no guarding no rigidity no peritoneal symptoms. There is no pulsatile lesions noted at this point. Disposition be determined. Workup and treatment course are evaluated. Patient also described a headache with what he felt like a drawing up sensation of his facial muscles during the event. His vision was blurry at that time but is resolved and gone back to normal at this point. Patient was CT imaging of the head as well as further workup for neurologic versus cardiac related symptoms. Disposition pending the full workup and treatment course. Detailed documentation of the physical exam, medical intervention, medical decision-making and disposition in the resident physician's note. No critical care applied to this patient's treatment course at this time. 1200 Patient found to have a troponin of 0.15. Patient will be discussed with the ship liner. Review his previous laboratory workup this is the lowest troponin that the patient has had here in the last 3 weeks. Patient will be discussed with the on-call ship liner for their recommendations interpretation the patient's previous evaluation as well as labs. 1235 Patient discussed with the on-call ship liner Dr. Keller. Recommended admission nitroglycerin and heparin to be started at this time. Patient will be observed in the emergency room a CT imaging is resulted. Admission process with a completed after the workup is established. Patient's symptoms to be controlled admission process will be completed. 45 minutes of critical care applied this patient's treatment course at this time secondary to multiple medical interventions and consultation. 1335 CT angiography of the head and the neck is negative for acute vascular insufficiency. Patient will be admitted at this time. Definitive management. Patient admitted with symptoms control this time. Heparin and nitroglycerin drip started. Patient will have definitive management the hospital setting.
[2018-02-11] MEDS ORDERED: *HR* Heparin 5,000 UNIT/ML VIAL IVP ONE (12:41)
[2018-02-11] MEDS ORDERED: *HR* Heparin 5,000 UNIT/ML VIAL IVP PRN ×2 (12:41)
[2018-02-11] MEDS: Nitroglycerin 25 MG/250 ML INFUS..BTL IVC SCH (12:57)
[2018-02-11] MEDS: Heparin 25,000 UNIT/500 ML D5W 25,000 UNIT/500 ML BAG IVC SCH (14:17)
[2018-02-11] MEDS ORDERED: Naloxone 0.4 MG/ML INJ IVP PRN (15:19)
[2018-02-11] MEDS ORDERED: *HR* HYDROcodone/Acet 5/325 mg TABLET PO PRN (15:19)
[2018-02-11] MEDS ORDERED: *HR* OxyCODONE Immed Rel 5 MG TABLET PO PRN (15:19)
[2018-02-11] MEDS ORDERED: Acetaminophen 325 MG TABLET PO PRN (15:19)
--- NOTE | 2018-02-11 15:28 | Internal Med History&Physical ---
Date of Encounter: 02/11/18 Time of Encounter: 15:25 Assessment and Plan (1) NSTEMI (non-ST elevated myocardial infarction) Current visit: No Status: Acute Cardiology was consulted Continue aspirin, atenolol (could not tolerate metoprolol), start Crestor ( could not tolerate Lipitor), nitroglycerin drip, heparin drip Follow troponins, telemetry Omeprazole for GI prophylaxis and heparin drip for DVT prophylaxis. The patient will be admitted as inpatient, expected to stay more than 2 midnights. Full code. Time spent on this admission 40 minutes (2) History of hypertension Current visit: No Status: Acute Stable (3) COPD (chronic obstructive pulmonary disease) Current visit: No Status: Chronic No exacerbation Qualifiers: COPD type: unspecified COPD Qualified Code(s): J44.9 - Chronic obstructive pulmonary disease, unspecified (4) Diverticulosis Current visit: No Status: Chronic Qualifiers: Diverticulosis site: diverticulosis of large intestine Diverticulosis bleeding: diverticulosis without bleeding Qualified Code(s): K57.30 - Diverticulosis of large intestine without perforation or abscess without bleeding (5) Gastroesophageal reflux disease Current visit: No Status: Chronic Omeprazole Qualifiers: Esophagitis presence: esophagitis presence not specified Qualified Code(s) : K21.9 - Gastro-esophageal reflux disease without esophagitis (6) Hyperlipidemia Current visit: No Status: Chronic Crestor Qualifiers: Hyperlipidemia type: unspecified Qualified Code(s): E78.5 - Hyperlipidemia , unspecified (7) Hypokalemia Current visit: Yes Status: Acute Replete as needed Internal Medicine - H&P: HPI Chief complaint: Chest pain Admitted From: Emergency Dept History of present illness: Mr. Teran is a 62 year old male with a past medical history of hypertension hyperlipidemia, recently discharged from the hospital on 01/24/2018 after being diagnosed with a non-STEMI, he had a heart catheterization that showed nonobstructive CAD and was sent home. The patient said that he could not tolerate Lipitor or metoprolol for which apparently he was switched to atenolol. Today he experienced the same type of midsternal pressure, was sweating, and was complaining of a severe headache. A CT angiography the head and neck did not show any abnormalities, chest x-ray is unremarkable, the first troponin is 0.15. EKG is unremarkable. Potassium is 3.4. The ER physician discussed the case with Dr. Cordero who recommended to start a nitroglycerin drip and a heparin drip. The patient mentions that the pain has decreased down to a 2 out of 10 with a nitroglycerin drip which was 5/10 before. Blood pressure was 147/85. Denies any other complaints Past Med Surg Social Fam HX - Past Medical History Medical history: asthma, COPD (Not oxygen dependent), coronary artery disease ( Nonobstructive CAD), GERD, hypertension, other (GERD, obesity, mild diastolic dysfunction with an ejection fraction of 60% on the prior echocardiogram, history of diverticulitis status post colectomy and colostomy with reversal) Psychiatric history: no psych history - Past Surgical History Surgical History: cholecystectomy, colectomy, colostomy, orthopedic, other, other (Cardiac catheterization) - Social History Smoking Status: Former smoker Packs per day: Quit 20 years ago Smokeless Tobacco Status: No Alcohol use: none Drug use: none - Family History Mother Living Status: Hx Family Cardiac Disorders: Yes Hx Family Respiratory Disorders: No Hx Family Cancer: No Hx Family GI Disorders: No Hx Family Endocrine Disorder: No Hx Family Neuromuscular Disorders: No Hx Family Neurologic Disorders: No Hx Family HEENT Disorders: No Hx Family Autoimmune Disorders: No - Additional Family History Additional family history: Father with IL/CAD at the age of 61, mother with several MIs and at the age of 81 Internal Medicine - H&P: Meds Multivitamin [One Daily Essential] 1 tab PO DAILY 07/06/16 [History] Omeprazole [PriLOSEC] 20 mg PO DAILY 07/06/16 [History] Aspirin 81 mg PO DAILY #30 tab.chew 01/24/18 [Rx] Atorvastatin [Lipitor] 40 mg PO HS #30 tablet 01/24/18 [Rx] Albuterol Sulfate [Ventolin Hfa] 2 puff IH Q4H PRN 02/11/18 [History] Atenolol [Tenormin] 25 mg PO DAILY 02/11/18 [History] Fluticasone Propionate Nasal [Flonase] 1 spr NS DAILY 02/11/18 [History] Fluticasone/Salmeterol [Advair Hfa 115-21 Mcg Inhaler] 2 puff IH BID 02/11/18 [ History] Tiotropium [Spiriva] 1 puff IH DAILY 02/11/18 [History] hydroCHLOROthiazide [Hydrochlorothiazide] 12.5 mg PO DAILY 02/11/18 [History] 3 Allergy/AdvReac Type Severity Reaction Status Date / Time No Known Allergies Allergy Verified 12/07/16 07:25 All Systems PM: A 10-system review of systems was performed and is negative for pertinent findings except as documented above in the HPI. Review of systems: No shortness of breath, no abdominal pain, no fevers. Other systems out of the 10 reviewed were negative - Constitutional Vitals: Temp Pulse Resp BP Pulse Ox 98.2 F 78 18 122/73 93 02/11/18 10:45 02/11/18 14:23 02/11/18 14:23 02/11/18 14:23 02/11/18 14:23 General appearance: Present: A&O X 3 - Head Head exam: Present: atraumatic, normocephalic - Eye Eye exam: Present: PERRL, conjuntiva pink, sclera anicteric Pupils: Present: PERRL - Neck Neck exam general surgery: Present: supple, trachea midline. Absent: lymphadenopathy - Respiratory Respiratory exam: Present: CTAB. Absent: accessory muscle use, rales, rhonchi, wheezes - Cardiovascular Cardiovascular exam: Present: RRR, +S1, +S2. Absent: diastolic murmur, gallop, rubs, systolic murmur - GI/Abdominal GI/Abdominal exam: Present: normal bowel sounds, soft, no peritoneal signs. Absent: distended, tenderness - Extremities Exam Extremities exam: Present: warm, radial pulses palpable and symmetrical. Absent : calf tenderness, cyanotic, pedal edema - Neurological Exam Neurological exam: Present: CN II-XII intact, oriented X3, no focal deficits. Absent: pronater drift, facial droop, speech deficit - Skin Skin exam: Present: dry, intact Internal Med - H&P Results - Labs CBC & Chem 7: 02/11/18 11:10 02/11/18 11:10
--- NOTE | 2018-02-11 15:55 | Cardiology Consult Note ---
Date of Encounter: 02/11/18 Time of Encounter: 15:49 Assessment and Plan (1) Elevated troponin Current Visit: No Status: Acute Per cardiology: -Troponin 0.15 in the setting of generalized illness, cough, congestion. -Had one episode of chest pain at rest. -Recent [facility] with moderate CAD. 01/24/18 40% mid LAD, 50% mid RCA. -OF note, during last admission had elevated troponins with peak of 0.21. -Deneis current chest pain. -No acute ischemic ECG changes. -On asa, statin, beta palak. -Currently on heparin and nitro drip at 5mcg/min. -TTE 01/2018 with LVEF preserved, no segmental wall motion abnormalities. -DO not suspect NSTEMI. No cardiac rehab warranted. -Will start imdur, wean nitro to off. -Trend troponins, if no significant change in troponins, anticipate cardiology sign off. (2) Chest pain Current Visit: No Status: Acute Per cardiology: -Patient had one episodde of chest pain while sitting in car on his way to hospital. -Denies exertional symptoms. -Currently chest pain free on nitro at 5mcg/min. -Will start imdur, wean nitro to off. Qualifiers: Chest pain type: unspecified Qualified Code(s): R07.9 - Chest pain, unspecified Discussion w patient/family: The assessment and plan as outlined above was discussed with the patient who expressed understanding and agreement. All questions were answered. Thank you for involving us in the care of your patient. Please call with any questions. Discussed and reviewed with . History of Present Illness Consult date: 02/11/18 Requesting physician: Johnathan De La O Consult reason: elevated troponin Chief complaint: cough, congestion History of present illness: Mr. Teran is a 62 year old male with a relevant past medical history of HTN, GERD, asthma, obesity, hyperlipidemia, mild CAD per recent [facility]. Patient presented to [facility] with complaints of generalized illness. Patient reports cough , congestion, weakness. Patient is unsure about a fever at home. Patient reports productive cough with green sputum. Patient reports he was in the car on his way to ER when he had mid-sternal chest discomfort. Pain started at rest. Patient denies aggravating factors. Patient states pain was alleviated by nitro given in ER. Patient denies current chest pain. Patient denies exertional chest pain. Past Med Surg Social Fam HX - Past Medical History Attestation: Yes The following information was validated with the patient. Source: patient, old records reviewed Medical history: asthma, COPD (Not oxygen dependent), coronary artery disease ( Nonobstructive CAD), GERD, hypertension, other (GERD, obesity, mild diastolic dysfunction with an ejection fraction of 60% on the prior echocardiogram, history of diverticulitis status post colectomy and colostomy with reversal) Psychiatric history: no psych history - Past Surgical History Surgical History: cholecystectomy, colectomy, colostomy, orthopedic, other, other (Cardiac catheterization) - Social History Smoking Status: Former smoker Packs per day: Quit 20 years ago Smokeless Tobacco Status: No Alcohol use: none Drug use: none - Family History Mother Living Status: Hx Family Cardiac Disorders: Yes Hx Family Respiratory Disorders: No Hx Family Cancer: No Hx Family GI Disorders: No Hx Family Endocrine Disorder: No Hx Family Neuromuscular Disorders: No Hx Family Neurologic Disorders: No Hx Family HEENT Disorders: No Hx Family Autoimmune Disorders: No Medications and Allergies Multivitamin [One Daily Essential] 1 tab PO DAILY 07/06/16 [History] Omeprazole [PriLOSEC] 20 mg PO DAILY 07/06/16 [History] Aspirin 81 mg PO DAILY #30 tab.chew 01/24/18 [Rx] Atorvastatin [Lipitor] 40 mg PO HS #30 tablet 01/24/18 [Rx] Albuterol Sulfate [Ventolin Hfa] 2 puff IH Q4H PRN 02/11/18 [History] Atenolol [Tenormin] 25 mg PO DAILY 02/11/18 [History] Fluticasone Propionate Nasal [Flonase] 1 spr NS DAILY 02/11/18 [History] Fluticasone/Salmeterol [Advair Hfa 115-21 Mcg Inhaler] 2 puff IH BID 02/11/18 [ History] Tiotropium [Spiriva] 1 puff IH DAILY 02/11/18 [History] hydroCHLOROthiazide [Hydrochlorothiazide] 12.5 mg PO DAILY 02/11/18 [History] 3 Allergy/AdvReac Type Severity Reaction Status Date / Time No Known Allergies Allergy Verified 12/07/16 07:25 All Systems Review: The remainder of the systems were reviewed and are negative - Constitutional Constitutional: malaise, weakness - Cardiovascular Cardiovascular: as per HPI, chest pain at rest - Respiratory Respiratory: cough Physical Examination Vital Signs, Last 4 Hours Resp BP 02/11/18 15:25 18 119/76 Vital Signs Temperature 98.2 F 02/11/18 10:45 Pulse Rate 64 02/11/18 10:45 Respiratory Rate 18 02/11/18 10:45 Blood Pressure 147/85 02/11/18 10:45 O2 Sat by Pulse Oximetry 95 02/11/18 10:45 Temperature 97.8 F 02/11/18 15:47 Pulse Rate 91 02/11/18 15:47 Respiratory Rate 18 02/11/18 15:47 Blood Pressure 132/83 02/11/18 15:47 O2 Sat by Pulse Oximetry 93 02/11/18 14:23 Oxygen Delivery Oxygen Delivery Room Air General: Conversant, No Apparent Distress HEENT: Atraumatic, Normocephaly, Mucus Membranes Moist Neck: No JVD, Normal carotid pulses Cardiac: Reg Rate and Rhythm, Normal S1 and S2, No Murmur Lungs: Normal Breath Sounds, No Wheeze, Rales, Rhonchi Neuro: Alert and responsive, No focal deficits noted Abdomen: Soft, Non-Tender Skin: No rashes noted on visualized skin Musculoskeletal: No Chest Wall Tenderness Extremities: No Clubbing, No Cyanosis, No Edema, Normal Pulses Results 02/11/18 11:10 02/11/18 11:[address] 02/11/18 10:58 IMPRESSION: 1. No acute intracranial process identified. 2. Unremarkable CTA of the head. D/ / Farzad Little MD / Farzad Little MD Interpreting Provider: Farzad Little MD Neck CTA 02/11/18 10:58 IMPRESSION: 1. No vascular dissection or significant arterial stenosis identified within the neck. 2. Mild atherosclerosis. D/ / 02/11/2018 13:06:05 Farzad Little MD / izaiah Interpreting Provider: Farzad Little MD Chest X-Ray 02/11/18 10:59 IMPRESSION: No acute process. D/ / Miguel Paz MD / Miguel Paz MD Interpreting Provider: Miguel Paz MD Active Medications Acetaminophen (Tylenol) 650 mg PO Q6HR PRN PRN Reason: Mild Pain/Fever Stop: 08/13/18 15:20 Hydrocodone Bitart/Acetaminophen ([place] 5-325 Mg) 1 tab PO Q6HR PRN PRN Reason: Moderate Pain Stop: 08/13/18 15:20 Aspirin (Aspirin) 81 mg PO DAILY NENA Stop: 08/14/18 09:01 Atenolol (Tenormin) 25 mg PO DAILY NENA Stop: 08/13/18 15:31 Heparin Sodium (Porcine) (Heparin) 4,000 unit IVP Q6HR PRN PRN Reason: SEE COMMENTS Stop: 08/13/18 12:42 Heparin Sodium (Porcine) (Heparin) 2,000 unit IVP Q6H PRN PRN Reason: SEE COMMENTS Stop: 08/13/18 12:42 Hydrochlorothiazide (Hydrochlorothiazide) 12.5 mg PO DAILY NENA Stop: 08/14/18 09:01 Nitroglycerin (Nitroglycerin Premix 25 Mg/250 Ml) 25 mg in 250 mls @ 3 mls/hr IVC .Q24H NENA; 5 MCG/MIN PRN Reason: Protocol Stop: 08/13/18 12:01 Last Admin: 02/11/18 12:57 Dose: 5 mcg/min, 3 mls/hr Heparin Sodium/Dextrose (Heparin 25,000 Unit/500 Ml D5w) 25,000 unit in 500 mls @ 32.659 mls/hr IVC .[id number] NENA; 12 UNIT/KG/HR PRN Reason: Protocol Stop: 08/13/18 12:46 Last Admin: 02/11/18 14:17 Dose: 12 unit/kg/hr, 32.659 mls/hr Sodium Chloride (0.9 % Sodium Chloride) 1,000 mls @ 60 mls/hr IVC .[id number] NENA Stop: 02/13/18 00:49 Isosorbide Mononitrate (Imdur) 30 mg PO DAILY [facility] Stop: 08/13/18 16:01 Naloxone HCl (Narcan) 0.4 mg IVP Q2MIN PRN PRN Reason: SEE COMMENTS Stop: 08/13/18 15:20 Nitroglycerin (Nitroglycerin) 0.4 mg SL Q5MIN PRN PRN Reason: Chest Pain Stop: 08/13/18 11:00 Last Admin: 02/11/18 11:30 Dose: 0.4 mg Omeprazole (Prilosec) 20 mg PO DAILY NENA PRN Reason: Protocol Stop: 08/14/18 09:01 Oxycodone HCl (Roxicodone) 10 mg PO Q6HR PRN PRN Reason: Severe Pain Stop: 08/13/18 15:20 Rosuvastatin Calcium (Crestor) 40 mg PO HS [facility] Stop: 08/13/18 21:01 Laboratory Tests 02/11/18 02/11/18 11:10 11:10 Hgb 15.0 Creatinine 0.99 Troponin I 0.15 H* - Imaging and Cardiology Chest Xray: report reviewed Echo: report reviewed Cardiac cath: report reviewed - EKG Interpretation EKG results cardiology: personally reviewed (ECG with SR, PVC noted.) Consult Discharge Plan - Plan Referrals: Zakiya Franco, HAT STOCK LAMINATING MACHINE OPERATOR [Primary Care Provider] -
[2018-02-11] MEDS: Isosorbide MONOnitrate (24 HR) 30 MG TAB.ER.24H PO SCH (16:58)
[2018-02-11] MEDS: 0.9 % Sodium Chloride 1,000 ML IVC SCH (17:02)
--- NOTE | 2018-02-11 18:48 | Electrocardiograph Report ---
[facility] Test Date: 2018-02-11 Pat Name: Yoli Teran Department: 102 Room: 2NE29 Gender: M Political Geographer: : 1955 Requested By: Terrell Dill Order Number: [id number] Reading MD: Mikey Byrne MD Measurements Intervals Kila Rate: 74 P: 31 TN: 160 QRS: -38 QRSD: 100 T: 61 QT: 368 QTc: 395 Interpretive Statements SINUS RHYTHM WITH OCCASIONAL VENTRICULAR PREMATURE COMPLEXES MARKED LEFT AXIS DEVIATION MODERATE VOLTAGE CRITERIA FOR LVH, CONSIDER NORMAL VARIANT Electronically Signed On 02-11-2018 18:46:17 EDT by Mikey Byrne MD
[2018-02-12 04:24] LABS: BUN/Creatinine Ratio 14 (6-26); Blood Urea Nitrogen 13 mg/dL (8-23); Calcium 9.1 mg/dL (8.6-10.3); Carbon Dioxide 26 mEq/L (23-29); Chloride 106 mEq/L (98-107); Chol/HDL Ratio 4.5 (0-4.9); Cholesterol 154 mg/dL (< 200); Glucose 117 mg/dL (70-105); HDL Cholesterol 34 mg/dL (40-59); LDL Cholesterol,Calculated 96 mg/dL (0-99); Osmolality,Calculated 289 (280-300); Potassium 3.6 mEq/L (3.5-5.1); Sodium 139 mEq/L (136-145); Triglycerides 120 mg/dL (< 150); eGFR For African Americans > 60 (> 60); eGFR For Non-African Americans > 60 (> 60)
[2018-02-12] MEDS: Heparin 25,000 UNIT/500 ML D5W 25,000 UNIT/500 ML BAG IVC SCH (05:39)
[2018-02-12] MEDS: Budesonide/Formoterol 80/4.5 MDI IH SCH ×2 (07:57→20:44)
[2018-02-12] MEDS: hydroCHLOROthiazide 25 MG TABLET PO SCH (10:13)
[2018-02-12] MEDS: Aspirin 81 MG TAB.CHEW PO SCH (10:14)
[2018-02-12] MEDS: Isosorbide MONOnitrate (24 HR) 30 MG TAB.ER.24H PO SCH (10:14)
[2018-02-12] MEDS: 0.9 % Sodium Chloride 1,000 ML IVC SCH ×3 (10:15→22:44)
[2018-02-12] MEDS: Nitroglycerin 25 MG/250 ML INFUS..BTL IVC SCH (12:04)
--- NOTE | 2018-02-12 12:52 | Cardiology Progress Note ---
Date of Encounter: 02/12/18 Time of Encounter: 10:30 Assessment and Plan (1) Elevated troponin Current Visit: Yes Status: Acute Per cardiology: -Troponin 0.15, 0.17, 0.16, 0.18 in the setting of generalized illness, cough, congestion, abdominal pain. -Chronically elevated troponin. -Had one episode of chest pain at rest. -Recent [facility] with moderate CAD. 01/24/18 40% mid LAD, 50% mid RCA. -OF note, during last admission had elevated troponins with peak of 0.21. -Deneis current chest pain. -No acute ischemic ECG changes. -On asa, statin, beta palak, imdur. -Currently on heparin and nitro drip at 5mcg/min. -TTE 01/2018 with LVEF preserved, no segmental wall motion abnormalities. -DO not suspect NSTEI, suspect troponins chronic. No cardiac rehab warranted. -Will stop nitro and heparin drips. -Per discussion with , cardiology will sign off and will follow in outpatient setting. Follow up set. (2) Chest pain Current Visit: Yes Status: Acute Per cardiology: -Patient had one episodde of chest pain while sitting in car on his way to hospital. -Denies exertional symptoms. -Currently chest pain free on nitro at 5mcg/min. -Denies recurrence of chest pain. -Will continue to follow in outpatient setting. Qualifiers: Chest pain type: unspecified Qualified Code(s): R07.9 - Chest pain, unspecified Discussion w patient/family: The assessment and plan as outlined above was discussed with the patient and family who expressed understanding and agreement. All questions were answered. Thank you for involving us in the care of your patient. Please call with any questions. Discussed and reviewed with . Subjective Principal diagnosis: elevated troponin Interval history: Patient denies chest pain. Patient reports abdominal pain, states similar to when he needed colostomy. Objective Vital Signs, Last 4 Hours Temp Pulse Resp BP Pulse Ox 02/12/18 11:29 97.8 F 68 17 105/60 96 General: Conversant, No Apparent Distress HEENT: Atraumatic, Normocephaly, Mucus Membranes Moist Neck: No JVD, Normal carotid pulses Cardiac: Reg Rate and Rhythm, Normal S1 and S2, No Murmur Lungs: Normal Breath Sounds, No Wheeze, Rales, Rhonchi Neuro: Alert and responsive, No focal deficits noted Abdomen: Soft, Non-Tender Skin: No rashes noted on visualized skin Musculoskeletal: No Chest Wall Tenderness Extremities: No Clubbing, No Cyanosis, No Edema, Normal Pulses Results 02/11/18 11:10 02/12/18 03:12 Lab Results Impressions Angiography CT 02/11/18 10:58 IMPRESSION: 1. No acute intracranial process identified. 2. Unremarkable CTA of the head. D/ / Farzad Little MD / Farzad Little MD Interpreting Provider: Farzad Little MD Neck CTA 02/11/18 10:58 IMPRESSION: 1. No vascular dissection or significant arterial stenosis identified within the neck. 2. Mild atherosclerosis. D/ / 02/11/2018 13:06:05 Farzad Little MD / izaiah Interpreting Provider: Farzad Little MD Active Medications Acetaminophen (Tylenol) 650 mg PO Q6HR PRN PRN Reason: Mild Pain/Fever Stop: 08/13/18 15:20 Hydrocodone Bitart/Acetaminophen ([place] 5-325 Mg) 1 tab PO Q6HR PRN PRN Reason: Moderate Pain Stop: 08/13/18 15:20 Aspirin (Aspirin) 81 mg PO DAILY [facility] Stop: 08/14/18 09:01 Last Admin: 02/12/18 10:14 Dose: 81 mg Atenolol (Tenormin) 25 mg PO DAILY [facility] Stop: 08/13/18 15:31 Last Admin: 02/12/18 10:14 Dose: 25 mg Budesonide/Formoterol Fumarate (Symbicort) 2 puff IH BIDR [facility] Stop: 08/14/18 10:01 Last Admin: 02/12/18 07:57 Dose: 2 puff Calcium Carbonate (Tums) 1,000 mg PO TID NENA PRN Reason: Protocol Stop: 08/13/18 21:01 Last Admin: 02/12/18 10:13 Dose: 1,000 mg Heparin Sodium (Porcine) (Heparin) 4,000 unit IVP Q6HR PRN PRN Reason: SEE COMMENTS Stop: 08/13/18 12:42 Heparin Sodium (Porcine) (Heparin) 2,000 unit IVP Q6H PRN PRN Reason: SEE COMMENTS Stop: 08/13/18 12:42 Hydrochlorothiazide (Hydrochlorothiazide) 12.5 mg PO DAILY NENA Stop: 08/14/18 09:01 Last Admin: 02/12/18 10:13 Dose: 12.5 mg Nitroglycerin (Nitroglycerin Premix 25 Mg/250 Ml) 25 mg in 250 mls @ 3 mls/hr IVC .Q24H NENA; 5 MCG/MIN PRN Reason: Protocol Stop: 08/13/18 12:01 Last Admin: 02/12/18 12:04 Dose: 5 mcg/min, 3 mls/hr Heparin Sodium/Dextrose (Heparin 25,000 Unit/500 Ml D5w) 25,000 unit in 500 mls @ 32.659 mls/hr IVC .[id number] NENA; 12 UNIT/KG/HR PRN Reason: Protocol Stop: 08/13/18 12:46 Last Admin: 02/12/18 05:39 Dose: 12 unit/kg/hr, 32.659 mls/hr Sodium Chloride (0.9 % Sodium Chloride) 1,000 mls @ 60 mls/hr IVC .[id number] NENA Stop: 02/13/18 00:49 Last Admin: 02/12/18 10:15 Dose: 60 mls/hr Isosorbide Mononitrate (Imdur) 30 mg PO DAILY [facility] Stop: 08/13/18 16:01 Last Admin: 02/12/18 10:14 Dose: 30 mg Naloxone HCl (Narcan) 0.4 mg IVP Q2MIN PRN PRN Reason: SEE COMMENTS Stop: 08/13/18 15:20 Nitroglycerin (Nitroglycerin) 0.4 mg SL Q5MIN PRN PRN Reason: Chest Pain Stop: 08/13/18 11:00 Last Admin: 02/11/18 11:30 Dose: 0.4 mg Omeprazole (Prilosec) 20 mg PO DAILY NENA PRN Reason: Protocol Stop: 08/14/18 09:01 Last Admin: 02/12/18 10:13 Dose: 20 mg Oxycodone HCl (Roxicodone) 10 mg PO Q6HR PRN PRN Reason: Severe Pain Stop: 08/13/18 15:20 Last Admin: 02/11/18 16:59 Dose: 10 mg Rosuvastatin Calcium (Crestor) 40 mg PO HS NENA Stop: 08/13/18 21:01 Last Admin: 02/11/18 21:46 Dose: 40 mg Laboratory Tests 02/11/18 02/11/18 02/11/18 11:10 15:37 21:26 Creatinine Troponin I 0.15 H* 0.17 H* 0.16 H* 02/12/18 02/12/18 03:12 03:12 Creatinine 0.92 Troponin I 0.18 H* - Imaging and Cardiology Chest Xray: report reviewed Echo: report reviewed Cardiac cath: report reviewed - EKG Interpretation EKG results cardiology: other (Telemetry reviewed with average HR previous 12 hours noted to be 61, SR. PVCs and PACs noted.) Consult Discharge Plan - Plan Referrals: Zakiya Franco, MEDIA COORDINATOR [Primary Care Provider] -
--- NOTE | 2018-02-12 13:21 | Internal Med Progress Note ---
Date of Encounter: 02/12/18 Time of Encounter: 13:19 - Assessment and plan (1) Epigastric pain Current Visit: Yes Status: Acute Assessment and plan: consider possible acute pancreatitis order lipase and amylase NPO, IVF IV protonix Order CT of the abdomen and pelvis with oral contrast only (2) NSTEMI (non-ST elevated myocardial infarction) Current Visit: Yes Status: Acute Assessment and plan: Cardiology was consulted and signed off Continue aspirin, atenolol (could not tolerate metoprolol), started on Crestor ( could not tolerate Lipitor), discontinued nitroglycerin and heparin drip Troponins were negative (3) History of hypertension Current Visit: No Status: Acute Assessment and plan: stable on HCTZ (4) COPD (chronic obstructive pulmonary disease) Current Visit: No Status: Chronic Assessment and plan: No exacerbation Qualifiers: COPD type: unspecified COPD Qualified Code(s): J44.9 - Chronic obstructive pulmonary disease, unspecified (5) Diverticulosis Current Visit: No Status: Chronic Qualifiers: Diverticulosis site: diverticulosis of large intestine Diverticulosis bleeding: diverticulosis without bleeding Qualified Code(s): K57.30 - Diverticulosis of large intestine without perforation or abscess without bleeding (6) Gastroesophageal reflux disease Current Visit: No Status: Chronic Assessment and plan: Omeprazole Qualifiers: Esophagitis presence: esophagitis presence not specified Qualified Code(s) : K21.9 - Gastro-esophageal reflux disease without esophagitis (7) Hyperlipidemia Current Visit: No Status: Chronic Assessment and plan: Crestor Qualifiers: Hyperlipidemia type: unspecified Qualified Code(s): E78.5 - Hyperlipidemia , unspecified (8) Hypokalemia Current Visit: Yes Status: Acute Assessment and plan: resolved - Subjective Interval history: complaining on severe epigastric pain , 8/10 , comes down to 2/10 at times, worse with food, no CP or SOB, no fevers, no dysuria - Constitutional Vitals: Temp Pulse Resp BP Pulse Ox 97.8 F 68 17 105/60 96 02/12/18 11:29 02/12/18 11:29 02/12/18 11:29 02/12/18 11:29 02/12/18 11:29 General appearance: Present: A&O X 3, morbidly obese - Head Head exam: Present: atraumatic, normocephalic - Eye Eye exam: Present: PERRL, conjuntiva pink, sclera anicteric Pupils: Present: PERRL - Neck Neck exam general surgery: Present: supple, trachea midline. Absent: lymphadenopathy - Respiratory Respiratory exam: Present: CTAB. Absent: accessory muscle use, rales, rhonchi, wheezes - Cardiovascular Cardiovascular exam: Present: RRR, +S1, +S2. Absent: diastolic murmur, gallop, rubs, systolic murmur - GI/Abdominal GI/Abdominal exam: Present: normal bowel sounds, soft, tenderness (epigastric), no peritoneal signs. Absent: distended - Extremities Exam Extremities exam: Present: warm, radial pulses palpable and symmetrical. Absent : calf tenderness, cyanotic, pedal edema - Neurological Exam Neurological exam: Present: CN II-XII intact, oriented X3, no focal deficits. Absent: pronater drift, facial droop, speech deficit - Skin Skin exam: Present: dry, intact Internal Medicine: Result - Labs CBC & Chem 7: 02/11/18 11:10 02/12/18 03:12 Labs: BMP 02/12/18 03:12 Sodium 139 Potassium 3.6 Chloride 106 Carbon Dioxide 26 BUN 13 Creatinine 0.92 Glucose 117 H Calcium 9.1 Cardiac Enzymes 02/11/18 02/11/18 02/12/18 Range/Units 15:37 21:26 03:12 Troponin I 0.17 H* 0.16 H* 0.18 H* (< 0.04) ng/mL - ABG Interpretation ABG results: PT/INR, D-dimer PT 10.9 Seconds (9.4-12.1) 02/11/18 11:10 Consult Discharge Plan - Plan Referrals: Zakiya Franco, [employer] PROFESSOR [Primary Care Provider] -
[2018-02-12] MEDS: Pantoprazole 40 MG VIAL IVP SCH (14:15)
[2018-02-12 15:07] LABS: Amylase 46 Units/L (29-103); Lipase 37 Units/L (11-82)
[2018-02-13 04:53] LABS: Alanine Aminotransferase 25 Units/L (7-52); Albumin 3.9 g/dL (3.5-5.7); Albumin/Globulin Ratio 1.4 (1.1-2.2); Alkaline Phosphatase 63 Units/L (34-104); Aspartate Amino Transferase 20 Units/L (13-39); BUN/Creatinine Ratio 11 (6-26); Bilirubin,Total 1.1 mg/dL (0.3-1.0); Blood Urea Nitrogen 11 mg/dL (8-23); Calcium 8.9 mg/dL (8.6-10.3); Carbon Dioxide 25 mEq/L (23-29); Chloride 107 mEq/L (98-107); Globulin 2.7 g/dL (2.4-3.5); Glucose 95 mg/dL (70-105); Osmolality,Calculated 287 (280-300); Potassium 3.7 mEq/L (3.5-5.1); Sodium 139 mEq/L (136-145); Total Protein 6.6 g/dL (6.4-8.9); eGFR For African Americans > 60 (> 60); eGFR For Non-African Americans > 60 (> 60)
[2018-02-13 07:34] VITALS: BP 112/69
[2018-02-13] MEDS: Budesonide/Formoterol 80/4.5 MDI IH SCH (07:37)
[2018-02-13] MEDS: 0.9 % Sodium Chloride 1,000 ML IVC SCH (08:43)
[2018-02-13] MEDS: Isosorbide MONOnitrate (24 HR) 30 MG TAB.ER.24H PO SCH (09:04)
[2018-02-13] MEDS: Pantoprazole 40 MG VIAL IVP SCH (09:05)
[2018-02-13] MEDS: Aspirin 81 MG TAB.CHEW PO SCH (09:05)
[2018-02-13] MEDS: hydroCHLOROthiazide 25 MG TABLET PO SCH (09:05)
--- NOTE | 2018-02-13 10:53 | Discharge Summary ---
Orders not resulted at time of discharge: Pending orders 02/11/18 20:10 EKG [ECG 12 lead ECG] [ECG] Stat Date of Encounter: 02/13/18 Time of Encounter: 10:46 - Discharge Diagnosis (1) NSTEMI (non-ST elevated myocardial infarction) Priority: Primary Status: Acute (2) Epigastric pain Priority: Secondary Status: Acute (3) History of hypertension Priority: Secondary Status: Acute (4) COPD (chronic obstructive pulmonary disease) Priority: Secondary Status: Chronic Qualifiers: COPD type: unspecified COPD Qualified Code(s): J44.9 - Chronic obstructive pulmonary disease, unspecified (5) Diverticulosis Priority: Secondary Status: Chronic Qualifiers: Diverticulosis site: diverticulosis of large intestine Diverticulosis bleeding: diverticulosis without bleeding Qualified Code(s): K57.30 - Diverticulosis of large intestine without perforation or abscess without bleeding (6) Gastroesophageal reflux disease Priority: Secondary Status: Chronic Qualifiers: Esophagitis presence: esophagitis presence not specified Qualified Code(s) : K21.9 - Gastro-esophageal reflux disease without esophagitis (7) Hyperlipidemia Priority: Secondary Status: Chronic Qualifiers: Hyperlipidemia type: unspecified Qualified Code(s): E78.5 - Hyperlipidemia , unspecified (8) Hypokalemia Priority: Secondary Status: Acute Hospital course: Mr. Teran is a 62 year old male with a past medical history of sthma, COPD ( Not oxygen dependent), coronary artery disease (Nonobstructive CAD), GERD, hypertension, other (GERD, obesity, mild diastolic dysfunction with an ejection fraction of 60% on the prior echocardiogram, history of diverticulitis status post colectomy and colostomy with reversal), hypertension, hyperlipidemia, recently discharged from the hospital on 01/24/2018 after being diagnosed with a non-STEMI, he had a heart catheterization that showed nonobstructive CAD and was sent home. The patient said that he could not tolerate Lipitor or metoprolol for which apparently he was switched to atenolol. He experienced the same type of midsternal pressure, was sweating, and was complaining of a severe headache. A CT angiography the head and neck did not show any abnormalities, chest x-ray is unremarkable, the first troponin was 0.15, increased up to 0.18. EKG was unremarkable. Potassium was 3.4. The patient was started on a heparin drip and nitroglycerin drip, he was evaluated by the cardiology team, he was maintained on both of the strips for little more than a day, they were discontinued afterwards. Cardiology signed off after starting the patient on Imdur. During his hospitalization the patient started complaining of severe epigastric pain and tenderness, CT scan of the abdomen was ordered showing:No acute finding in the abdomen or pelvis. Specifically, there is no evidence of pancreatitis. Postsurgical changes in the anterior abdominal wall with focal rectus sheath laxity and ventral protrusion in the region of the umbilicus. Amylase and lipase were normal. Patient does still complain of some discomfort but is feeling much better and stable to be discharged. The patient is saying that he could not tolerate Lipitor in the past, he will try low dose of Crestor and will continue atenolol as he could not tolerate metoprolol in the past as well. - Time Spent with Patient Total time spent providing and/or coordinating discharge services: Greater than 30 minutes (40 min) - Discharge Medications Prescriptions: Isosorbide MONOnitrate (24 HR) [Imdur] 30 mg PO DAILY #30 tab.er.24h Rosuvastatin Calcium [Crestor] 10 mg PO DAILY #30 tablet Home Medications: Multivitamin [One Daily Essential] 1 tab PO DAILY 07/06/16 [History] Aspirin 81 mg PO DAILY #30 tab.chew 01/24/18 [Rx] Atorvastatin [Lipitor] 40 mg PO HS #30 tablet 01/24/18 [Rx] Albuterol Sulfate [Ventolin Hfa] 2 puff IH Q4H PRN 02/11/18 [History] Atenolol [Tenormin] 25 mg PO DAILY 02/11/18 [History] Fluticasone Propionate Nasal [Flonase] 1 spr NS DAILY 02/11/18 [History] Fluticasone/Salmeterol [Advair Hfa 115-21 Mcg Inhaler] 2 puff IH BID 02/11/18 [ History] Tiotropium [Spiriva] 1 puff IH DAILY 02/11/18 [History] hydroCHLOROthiazide [Hydrochlorothiazide] 12.5 mg PO DAILY 02/11/18 [History] Isosorbide MONOnitrate (24 HR) [Imdur] 30 mg PO DAILY #30 tab.er.24h 02/13/18 [ Rx] Omeprazole [PriLOSEC] 40 mg PO DAILY #30 02/13/18 [Rx] Rosuvastatin Calcium [Crestor] 10 mg PO DAILY #30 tablet 02/13/18 [Rx] Allergies/Adverse Reactions: 3 Allergy/AdvReac Type Severity Reaction Status Date / Time No Known Allergies Allergy Verified 12/07/16 07:25 Date of admission: 02/11/18 15:19 Primary care physician: Zakiya Franco CNP - Constitutional Vitals: Temp Pulse Resp BP Pulse Ox 97.7 F 61 16 112/69 93 02/13/18 07:32 02/13/18 07:32 02/13/18 07:37 02/13/18 07:32 02/13/18 07:37 General appearance: Present: A&O X 3, morbidly obese - Head Head exam: Present: atraumatic, normocephalic - Eye Eye exam: Present: PERRL, conjuntiva pink, sclera anicteric Pupils: Present: PERRL - Neck Neck exam general surgery: Present: supple, trachea midline. Absent: lymphadenopathy - Respiratory Respiratory exam: Present: CTAB. Absent: accessory muscle use, rales, rhonchi, wheezes - Cardiovascular Cardiovascular exam: Present: RRR, +S1, +S2. Absent: diastolic murmur, gallop, rubs, systolic murmur - GI/Abdominal GI/Abdominal exam: Present: normal bowel sounds, soft, no peritoneal signs. Absent: distended, tenderness - Extremities Exam Extremities exam: Present: warm, radial pulses palpable and symmetrical. Absent : calf tenderness, cyanotic, pedal edema - Neurological Exam Neurological exam: Present: CN II-XII intact, oriented X3, no focal deficits. Absent: pronater drift, facial droop, speech deficit - Skin Skin exam: Present: dry, intact - Patient Status Disposition: Home, Self-Care Condition: Fair Overall status at discharge: patient is back to baseline - Discharge Instructions Follow Up With: Zakiya Franco CNP [Primary Care Provider] - Additional Instructions: Follow-up with primary care physician within the next 7 days. Follow-up with cardiology within the next 3 weeks. Continue aspirin, atenolol, Crestor, Imdur. Continue omeprazole - Diet and Activity Activity: resume usual activities as tolerated Diet: low fat, low cholesterol
--- NOTE | 2018-02-15 06:46 | Electrocardiograph Report ---
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
== END 2018-02-13 11:22 | disposition home or self-care (01) | DRG 190 ==
LOC: 2NENU 10:40 → EMEROO 10:40 → 2NENU 15:27
PROVIDERS: ADMIT Internal Medicine; ATTEND Internal Medicine

== ENCOUNTER 2018-06-16 11:48 | Observation (INO) ==
[2018-06-16 12:31] LABS: Hematocrit 46.3 % (37.5-50.1); Hemoglobin 15.9 g/dL (12.9-16.9); Mean Corpuscular HGB Conc 34.3 g/dL (31.6-35.5); Mean Corpuscular Volume 93.2 fL (83.0-100.0); Mean Platelet Volume 11.2 fL (9.4-12.4); Platelet Count 239 K/mcL (140-400); Red Blood Count 4.97 M/mcL (4.19-5.50); Red Cell Distribution Width 12.7 % (11.5-14.5)
[2018-06-16 12:37] LABS: BUN/Creatinine Ratio 26 (6-26); Blood Urea Nitrogen 26 mg/dL (8-23); Calcium 9.6 mg/dL (8.6-10.3); Carbon Dioxide 25 mEq/L (23-29); Chloride 104 mEq/L (98-107); Glucose 110 mg/dL (70-105); Osmolality,Calculated 287 (280-300); Potassium 3.8 mEq/L (3.5-5.1); Sodium 136 mEq/L (136-145); eGFR For Non-African Americans > 60 (> 60)
[2018-06-16 12:40] LABS: Troponin I 0.17 ng/mL (< 0.04)
[2018-06-16] MEDS ORDERED: Isovue-370 500 ML INFUS..BTL IV ONE (12:54)
[2018-06-16] MEDS ORDERED: Aspirin 81 MG TAB.CHEW PO STA (12:54)
[2018-06-16 13:24] LABS: Prothrombin Time 11.8 Seconds (9.4-12.1)
[2018-06-16 13:27] LABS: Activated Partial Thrombo Time 32.3 Seconds (26.0-36.0)
[2018-06-16] MEDS ORDERED: *HR* Heparin 5,000 UNIT/ML VIAL IVP ONE (14:13)
[2018-06-16] MEDS ORDERED: *HR* Heparin 5,000 UNIT/ML VIAL IVP PRN ×2 (14:13)
[2018-06-16] MEDS: Heparin 25,000 UNIT/500 ML D5W 25,000 UNIT/500 ML BAG IVC SCH (15:10)
--- NOTE | 2018-06-16 15:32 | Emergency Department Note ---
Disposition Clinical Impression: NSTEMI (non-ST elevated myocardial infarction) Disposition: Admitted As Inpatient Condition: Good General Adult HPI - General Chief complaint: ED Shortness of Breath/Dyspnea Stated complaint: ANA Source: patient Limitations: no limitations Nursing Notes Reviewed: Yes Vital Signs Reviewed: Yes - History of Present Illness HPI Narrative: Patient presents for progressive dyspnea with associated headache and chest pain. Patient has known cardiac disease with what he describes as a weak heart. Was diagnosed with a heart attack in March and is been undergoing cardiac rehabilitation since then. Just finished cardiac rehabilitation. He has had intermittent symptoms similar to what he presents today for however today symptoms have been progressively getting worse, not better, more severe than usual. Associated dizziness like he is going to pass out. Chest pain which she describes as pressure in his chest which does have episodes of diaphoresis which have not been specifically associated with exertion but are concerning for cardiac in nature given his significant cardiac history as well as other symptoms. His initial triage EKG and blood work of artery returned and his troponin is significantly elevated at 0.18. EKG does not show any significant changes. I will further his workup by adding coags and getting a CTA of his chest. Patient will likely be placed on a heparin drip should has not had any recent bleeding or contraindications. Patient will likely be admitted for further cardiac evaluation. Pain Scale: 2 - Related Data Home Medications Medication Instructions Recorded Confirmed Atenolol [Tenormin] 25 mg PO HS 06/16/18 06/16/18 Pantoprazole Sodium 20 mg PO DAILY 06/16/18 06/16/18 hydroCHLOROthiazide 12.5 mg PO DAILY 06/16/18 06/16/18 [Hydrochlorothiazide] Allergies Allergy/AdvReac Type Severity Reaction Status Date / Time [id number] Reductase AdvReac Nausea Verified 06/16/18 15:06 Inhibitor [Statins] plastic tape Allergy Rash Uncoded 06/16/18 15:06 Review of Systems: As Per HPI Constitutional: Reports: weakness (Generalized). Denies: fever, chills Cardiovascular: Reports: chest pain (Center and were ablated as pressure) Respiratory: Reports: dyspnea (With exertion) Gastrointestinal: Denies: abdominal pain, nausea Integumentary: Denies: rash, abrasion Past Medical History - Past Medical History Medical history: Reports: arthritis, asthma, atrial fibrillation, COPD, coronary artery disease, GERD, GI bleed, hyperlipidemia, hypertension, myocardial infarction Surgical history: Reports: cholecystectomy, colectomy, colostomy, orthopedic, other, other Psychiatric history: Reports: no psych history - Social History Smoking Status: Former smoker Smokeless Tobacco Status: No Alcohol use: Reports: none Drug use: Reports: none Physical Exam General: Well appearing, nontoxic, no acute distress Head: Normocephalic Atraumatic Eyes: PERRL, EOMI ENT: Airway patent, no stridor Neck: supple, no meningismus Chest: Lungs clear to auscultation bilateral Cardiac: Regular rate and rhythm, no murmurs, rubs or gallops Abdomen: soft, nontender, nondistended; no guarding, rebound, or tenderness to percussion Musculoskeletal: Calves symmetric, nontender, no palpable cord Skin: No rash, normal skin tone Neuro: Alert and Oriented to person, place, and time; No focal deficit, CN 2-12 symmetric and intact - General Limitations: no limitations General appearance: alert, in no apparent distress Course - Reevaluation(s) Reevaluation #1: Patient seen and evaluated. Patient with chest pain which he downplays as it was not as bad as previously. Associated shortness of breath on exertion and episodes of just breaking out in diaphoresis. Concerning for possible atypical acute coronary syndrome or anginal equivalent. Symptoms are relieved at rest at this time. Patient will be placed on a heparin drip secondary to elevated troponin. CTA will be performed to rule out PE or other pathology. Patient will be admitted to the hospitalist for further evaluation. - Consultations Consultation #1: Discussed with hospitalist. Recommends cardiology consult. Patient accepted pending cardiology consult. Consultation #2: Discussed with cardiology. They will consult tomorrow for further evaluation. Agrees with heparin drip. Vital Signs Temperature 97.8 F 06/16/18 11:50 Pulse Rate 57 06/16/18 11:50 Respiratory Rate 22 06/16/18 11:50 Blood Pressure 132/75 06/16/18 11:50 O2 Sat by Pulse Oximetry 97 06/16/18 11:50 Temperature 97.7 F 06/16/18 20:08 Pulse Rate 51 06/16/18 20:08 Respiratory Rate 15 06/16/18 20:08 Blood Pressure 125/66 06/16/18 20:08 O2 Sat by Pulse Oximetry 95 07/26/18 20:08 Oxygen Delivery Oxygen Delivery Room Air Medical Decision Making - Medical Records Medical records reviewed: Yes I reviewed the patient's medical records. - Lab Data Lab results reviewed: Yes I reviewed the patient's lab results. Result diagrams: 06/16/18 12:00 06/16/18 12:00 Lab Results 06/16/18 06/16/18 06/16/18 Range/Units 12:00 12:00 12:00 WBC 10.9 (4.3-11.1) K/mcL RBC 4.97 (4.19-5.50) M/mcL Hgb 15.9 (12.9-16.9) g/dL Hct 46.3 (37.5-50.1) % MCV 93.2 (83.0-100.0) fL MCH 32.0 (28.0-33.3) pg MCHC 34.3 (31.6-35.5) g/dL RDW 12.7 (11.5-14.5) % Plt Count 239 (140-400) K/mcL MPV 11.2 (9.4-12.4) fL PT (9.4-12.1) Seconds INR APTT (26.0-36.0) Seconds Heparin Anti-Xa, Unfract (0.30-0.70) IU/mL Sodium 136 (136-145) mEq/L Potassium 3.8 (3.5-5.1) mEq/L Chloride 104 (98-107) mEq/L Carbon Dioxide 25 (23-29) mEq/L BUN 26 H (8-23) mg/dL Creatinine 1.01 (0.70-1.30) mg/dL Est GFR ( Amer) > 60 (> 60) Est GFR (Non-Af Amer) > 60 (> 60) BUN/Creatinine Ratio 26 (6-26) Glucose 110 H (70-105) mg/dL Calculated Osmolality 287 (280-300) Lactic Acid 1.1 (0.5-2.2) mmol/L Calcium 9.6 (8.6-10.3) mg/dL Troponin I 0.17 H* (< 0.04) ng/mL B-Natriuretic Peptide (Less than 100) pg/mL 06/16/18 06/16/18 06/16/18 Range/Units 12:00 12:00 14:21 WBC (4.3-11.1) K/mcL RBC (4.19-5.50) M/mcL Hgb (12.9-16.9) g/dL Hct (37.5-50.1) % MCV (83.0-100.0) fL MCH (28.0-33.3) pg MCHC (31.6-35.5) g/dL RDW (11.5-14.5) % Plt Count (140-400) K/mcL MPV (9.4-12.4) fL PT 11.8 (9.4-12.1) Seconds INR 1.0 APTT 32.3 (26.0-36.0) Seconds Heparin Anti-Xa, Unfract 0.03 L (0.30-0.70) IU/mL Sodium (136-145) mEq/L Potassium (3.5-5.1) mEq/L Chloride (98-107) mEq/L Carbon Dioxide (23-29) mEq/L BUN (8-23) mg/dL Creatinine (0.70-1.30) mg/dL Est GFR ( Amer) (> 60) Est GFR (Non-Af Amer) (> 60) BUN/Creatinine Ratio (6-26) Glucose (70-105) mg/dL Calculated Osmolality (280-300) Lactic Acid (0.5-2.2) mmol/L Calcium (8.6-10.3) mg/dL Troponin I (< 0.04) ng/mL B-Natriuretic Peptide 34 (Less than 100) pg/mL - Radiology Data Radiology results reviewed: Yes I reviewed the patient's radiology results. - EKG Data EKG #1 EKG attestation: Yes I reviewed and interpreted this EKG. EKG results narrative: EKG shows sinus rhythm with a ventricular rate of 62. CT 183. QRS 83. QTC 395. Patient has no significant ST elevations or depressions. No previous EKG for comparison at this time. Previous EKG with no significant change. 02/11/18.
[2018-06-16] MEDS ORDERED: 0.9 % Sodium Chloride 500 ML IVC ONE (15:36)
[2018-06-16] MEDS ORDERED: Naloxone 0.4 MG/ML INJ IVP PRN ×2 (16:24→16:25)
--- NOTE | 2018-06-16 16:33 | Internal Med History&Physical ---
Date of Encounter: 06/16/18 Time of Encounter: 15:50 Internal Medicine - H&P: HPI Chief complaint: Exertional dyspnea History of present illness: Mr. Teran is a 63 year old male with past medical history of hypertension, hyperlipidemia, nonobstructive CAD, COPD, presented to the ED with worsening exertional dyspnea. Had cardiac workup since 01/2018 including cath which showed non-critical CAD and Echo revealing normal EF with mild pulm HTN. PFT normal in 2016. He was noted to have chronic troponin elevation however around 0.16-0.2 since then. He states that he had just completed cardiac rehab and has been experiencing worsening exertional dyspnea associated with intermittent diaphoresis and lightheadedness. He also mentions that he occasionally feels palpitation and "sensation that his heart is about to stop". Otherwise, no fever /chills, N/V, GI or symptoms. In the ED, he was afebrile and vitals are stable. Labs again demonstrated elevated troponin at 0.17 without EKG changes concerning for ST elevation. He has CT chest angiogram done which was only showing a few 2-3 cm pulmonary nodules. He was noted with aspirin and started on heparin drip and admitted for further management. Past Med Surg Social Fam HX - Past Medical History Attestation: Yes The following information was validated with the patient. Medical history: arthritis, asthma, atrial fibrillation, COPD, coronary artery disease, GERD, GI bleed, hyperlipidemia, hypertension, myocardial infarction Additional medical history: hemorrhoids, ED, diverticulosis Psychiatric history: no psych history - Past Surgical History Surgical History: cholecystectomy, colectomy, colostomy, orthopedic, other, other Additional surgical history: rotator cuff tear, heart cath-no stents - Social History Smoking Status: Former smoker Smokeless Tobacco Status: No Alcohol use: none Drug use: none - Family History Mother Adopted: No Family Member Ethnicity: Non- Living Status: Hx Family Cardiac Disorders: Yes (CHF) Hx Family Respiratory Disorders: No Hx Family Cancer: No Hx Family GI Disorders: No Hx Family Endocrine Disorder: Yes (Goiter) Hx Family Neuromuscular Disorders: No Hx Family Neurologic Disorders: Yes (TIA's) Hx Family HEENT Disorders: No Hx Family Autoimmune Disorders: No Internal Medicine - H&P: Meds Atenolol [Tenormin] 25 mg PO HS 06/16/18 [History] Pantoprazole Sodium 20 mg PO DAILY 06/16/18 [History] hydroCHLOROthiazide [Hydrochlorothiazide] 12.5 mg PO DAILY 06/16/18 [History] 3 Allergy/AdvReac Type Severity Reaction Status Date / Time Myukyuf-Dji-Bcn Reductase AdvReac Nausea Verified 06/16/18 15:06 Inhibitor [Statins] plastic tape Allergy Rash Uncoded 06/16/18 15:06 All Systems PM: A 10-system review of systems was performed and is negative for pertinent findings except as documented above in the HPI. - Constitutional Vitals: Temp Pulse Resp BP Pulse Ox 97.8 F 58 18 134/66 94 06/16/18 12:14 06/16/18 15:17 06/16/18 16:08 06/16/18 16:08 06/16/18 15:17 Internal Med - H&P Results - Labs CBC & Chem 7: 06/16/18 12:00 06/16/18 12:00 Labs: General: Alert and oriented, not in distress HEENT:EOM, pupils equal, round, and reactive. Cardiovascular:Normal S1 & S2, no murmurs or gallops. No JVD. Pulse regular. Lungs:Normal breath sounds, no wheezes or crackles. Abdomen:Soft, non-tender, no rigidity. Extremities:No deformity, no edema or tenderness, no joint swelling. Neurological:Normal cognition and motor skills. Skin:Normal color, no rash, no lesions. Pulses:Carotid and radial pulses normal +2. Rest of the physical exam is non-contributory - Assessment and plan (1) Dyspnea Current Visit: Yes Status: Acute Assessment and plan: Unclear etiology had cordate workup done for elevated troponin in the past which only showed nonobstructive CAD. CT angio did not show any evidence of PE or parenchymal abnormality. Patient does endorse history of lightheadedness and occasional palpitation ? underlying arrhythmia troponin 0.17 which is at his baseline, will trend to rule out ACS however telemetry Qualifiers: Dyspnea type: dyspnea on exertion Qualified Code(s): R06.09 - Other forms of dyspnea (2) Elevated troponin Current Visit: No Status: Acute Assessment and plan: Chronically elevated, associated with exertional dyspnea, lightheadedness, and palpitation cath finding as above ?not sure why he is not on ASA, will restart intolerant to statin, defer for now low suspicion for ACS, will trend troponin heparin gtt started in the ED cardiology consult (3) COPD (chronic obstructive pulmonary disease) Current Visit: No Status: Chronic Qualifiers: COPD type: unspecified COPD Qualified Code(s): J44.9 - Chronic obstructive pulmonary disease, unspecified (4) Gastroesophageal reflux disease Current Visit: No Status: Chronic Qualifiers: Esophagitis presence: esophagitis presence not specified Qualified Code(s) : K21.9 - Gastro-esophageal reflux disease without esophagitis (5) DVT prophylaxis Current Visit: No Status: Acute Assessment and plan: Heparin gtt as above (6) HTN (hypertension) Current Visit: No Status: Chronic Assessment and plan: Resume home meds Qualifiers: Hypertension type: essential hypertension Qualified Code(s): I10 - Essential (primary) hypertension - Time Spent With Patient Total time spent is greater than 50% in coordination of care (as documented) at patient's floor/unit and/or counseling patient:
[2018-06-17 04:37] LABS: Basophils # 0.1 K/mcL (0.0-0.2); Basophils % 0.7 %; Eosinophils # 0.2 K/mcL (0.0-0.6); Eosinophils % 1.8 %; Hematocrit 45.3 % (37.5-50.1); Hemoglobin 15.4 g/dL (12.9-16.9); Immature Granulocytes % 0.6 % (0-4); Lymphocytes # 2.7 K/mcL (0.6-4.6); Lymphocytes % 31.4 %; Mean Corpuscular Volume 94.2 fL (83.0-100.0); Monocytes # 0.9 K/mcL (0.0-1.3); Monocytes % 10.3 %; Neutrophils # 4.7 K/mcL (1.6-8.9); Platelet Count 204 K/mcL (140-400); Red Blood Count 4.81 M/mcL (4.19-5.50); Red Cell Distribution Width 12.7 % (11.5-14.5); Segmented Neutrophils % 55.2 %
[2018-06-17 04:56] LABS: BUN/Creatinine Ratio 20 (6-26); Blood Urea Nitrogen 17 mg/dL (8-23); Calcium 9.1 mg/dL (8.6-10.3); Carbon Dioxide 25 mEq/L (23-29); Chloride 106 mEq/L (98-107); Glucose 117 mg/dL (70-105); Magnesium 2.2 mg/dL (1.6-2.6); Osmolality,Calculated 293 (280-300); Potassium 3.7 mEq/L (3.5-5.1); Sodium 140 mEq/L (136-145); eGFR For Non-African Americans > 60 (> 60)
[2018-06-17] MEDS: Heparin 25,000 UNIT/500 ML D5W 25,000 UNIT/500 ML BAG IVC SCH (06:39)
--- NOTE | 2018-06-17 08:45 | Internal Med Progress Note ---
Date of Encounter: 06/17/18 Time of Encounter: 08:45 - Assessment and plan (1) COPD (chronic obstructive pulmonary disease) Current Visit: No Status: Chronic Qualifiers: COPD type: unspecified COPD Qualified Code(s): J44.9 - Chronic obstructive pulmonary disease, unspecified (2) Gastroesophageal reflux disease Current Visit: No Status: Chronic Qualifiers: Esophagitis presence: esophagitis presence not specified Qualified Code(s) : K21.9 - Gastro-esophageal reflux disease without esophagitis (3) DVT prophylaxis Current Visit: No Status: Acute (4) HTN (hypertension) Current Visit: No Status: Chronic Qualifiers: Hypertension type: essential hypertension Qualified Code(s): I10 - Essential (primary) hypertension (5) Elevated troponin Current Visit: No Status: Acute (6) Dyspnea Current Visit: Yes Status: Acute Qualifiers: Dyspnea type: dyspnea on exertion Qualified Code(s): R06.09 - Other forms of dyspnea - Time Spent With Patient Total time spent is greater than 50% in coordination of care (as documented) at patient's floor/unit and/or counseling patient: - Constitutional Vitals: Temp Pulse Resp BP Pulse Ox 97.8 F 58 15 116/61 95 06/17/18 06:29 06/17/18 06:29 06/17/18 06:29 06/17/18 06:29 06/17/18 06:29 Internal Medicine: Result - Labs CBC & Chem 7: 06/17/18 04:23 06/17/18 04:23 Labs: Short CBC 06/17/18 Range/Units 04:23 WBC 8.5 (4.3-11.1) K/mcL Hgb 15.4 (12.9-16.9) g/dL Hct 45.3 (37.5-50.1) % Plt Count 204 (140-400) K/mcL Neutrophils # 4.7 (1.6-8.9) K/mcL BMP 06/17/18 04:23 Sodium 140 Potassium 3.7 Chloride 106 Carbon Dioxide 25 BUN 17 Creatinine 0.83 Glucose 117 H Calcium 9.1 Cardiac Enzymes 06/16/18 Range/Units 19:20 Troponin I 0.20 H* (< 0.04) ng/mL - ABG Interpretation ABG results: PT/INR, D-dimer PT 11.8 Seconds (9.4-12.1) 06/16/18 12:00 Consult Discharge Plan - Plan Referrals: Zakiya Franco, EDVIN [Primary Care Provider] -
[2018-06-17] MEDS ORDERED: hydroCHLOROthiazide 25 MG TABLET PO SCH (09:00)
[2018-06-17] MEDS ORDERED: Aspirin Enteric Coated 81 MG Tablet PO SCH (09:00)
--- NOTE | 2018-06-17 11:22 | Cardiology Consult Note ---
<Chloe Zarco - Last Filed: 06/17/18 11:56> Date of Encounter: 06/17/18 Time of Encounter: 11:00 Assessment and Plan (1) Pre-syncope Current Visit: Yes Status: Acute Symptoms consistent with pre-syncope. Reports similar symptoms since January 2018--of note, at that time BB was started for moderate, non-obstructive CAD. Suspect may be secondary to bradycardia. As inpt, avg HR-48, minimum=35 ( nocturnal) Recommend stopping Atenolol. Avoid AV reese blocking agents. Encouraged patient to keep BP/HR log at home. 48 hour HM recommended upon discharge--order placed. Follow-up with Cardiology in the outpatient setting. (2) Elevated troponin Current Visit: No Status: Acute Mild troponin elevation. No chest pain reported. Has hx of chronically elevated troponin per review. Recent [facility] January 2018 demonstrated non-obstructive CAD with preserved LVEF. Discussion w patient/family: The assessment and plan as outlined above was discussed with the patient and/or family members who expressed understanding and agreement. All questions were answered. Thank you for involving us in the care of your patient. Please call with any questions. The patient will be discussed and reviewed with Dr. Marte; changes to be made accordingly. History of Present Illness Consult date: 06/17/18 Requesting physician: Colby Geller Consult reason: Elevated troponin Chief complaint: Shortness of breath, pre-syncope History of present illness: Mr. Teran is a 63 year old male with PMHx significant of HTN, GERD, obesity, asthma, HLD and moderate non-obstructive CAD who presented to the ED with complaints of pre-syncope that occurred at yesterday. He notes that yesterday morning as he was getting ready he suddenly felt short of breath, diaphoretic, and dizziness. He felt like his sugar was too high or low, however when it was check it was around 250. BP and HR were reportedly stable. He sat down, felt better and went to [employer] with his ; as he was pushing the shopping cart symptoms returned and had to lean against the wall. Once he sat down in his car , symptoms improved. He states he has several episodes since last January. Also reports recently quit taking HCTZ as he would become nauseated and diaphoretic shortly after taking medication. Prior CV testing: [facility] 01/24/18: moderate, non-obstructive CAD TTE 01/2018: EF preserved, normal wall motion Past Med Surg Social Fam HX - Past Medical History Attestation: Yes The following information was validated with the patient. Source: patient Medical history: arthritis, asthma, atrial fibrillation, COPD, coronary artery disease (non-obstructive CAD), GERD, GI bleed, hyperlipidemia, hypertension, myocardial infarction Additional medical history: hemorrhoids, ED, diverticulosis Psychiatric history: no psych history - Past Surgical History Surgical History: cholecystectomy, colectomy, colostomy, orthopedic, other, other Additional surgical history: rotator cuff tear, heart cath-no stents - Social History Smoking Status: Former smoker Smokeless Tobacco Status: No Alcohol use: none Drug use: none - Family History Mother Adopted: No Family Member Ethnicity: Non- Living Status: Age at : 81 Cause of : heart Hx Family Cardiac Disorders: Yes (CHF) Hx Family Respiratory Disorders: No Hx Family Cancer: No Hx Family GI Disorders: No Hx Family Endocrine Disorder: Yes (Goiter) Hx Family Neuromuscular Disorders: No Hx Family Neurologic Disorders: Yes (TIA's) Hx Family HEENT Disorders: No Hx Family Autoimmune Disorders: No Medications and Allergies Pantoprazole Sodium 20 mg PO DAILY 06/16/18 [History] Furosemide [Lasix] 20 mg PO PRN PRN #10 tablet 06/17/18 [Rx] 3 Allergy/AdvReac Type Severity Reaction Status Date / Time Rkbtrrv-Fkr-[id number] Reductase AdvReac Nausea Verified 06/16/18 15:06 Inhibitor [Statins] plastic tape Allergy Rash Uncoded 06/16/18 15:06 All Systems Review: The remainder of the systems were reviewed and are negative - Cardiovascular Cardiovascular: as per HPI Physical Examination Vital Signs, Last 4 Hours Temp Pulse Resp BP Pulse Ox 06/17/18 11:13 97.7 F 51 15 116/66 93 General: Conversant, No Apparent Distress HEENT: Atraumatic, Normocephaly, Mucus Membranes Moist Neck: No JVD, Normal carotid pulses Cardiac: Reg Rate and Rhythm (bradycardiac), Normal S1 and S2, No Murmur Lungs: Normal Breath Sounds, No Wheeze, Rales, Rhonchi Neuro: Alert and responsive, No focal deficits noted Abdomen: Soft, Non-Tender Skin: No rashes noted on visualized skin Musculoskeletal: No Chest Wall Tenderness Extremities: No Clubbing, No Cyanosis, No Edema, Normal Pulses Results 06/17/18 04:23 06/17/18 04:23 Lab Results 06/16/18 06/17/18 06/17/18 19:20 04:23 04:23 WBC 8.5 Hgb 15.4 Hct 45.3 Plt Count 204 Sodium 140 Potassium 3.7 Chloride 106 Carbon Dioxide 25 BUN 17 Creatinine 0.83 Glucose 117 H Calcium 9.1 Magnesium 2.2 Troponin I 0.20 H* 06/17/18 09:05 WBC Hgb Hct Plt Count Sodium Potassium Chloride Carbon Dioxide BUN Creatinine Glucose Calcium Magnesium Troponin I 0.19 H* Active Medications Aspirin (Aspirin Ec) 81 mg PO DAILY [facility] Stop: 12/17/18 09:01 Last Admin: 06/17/18 09:36 Dose: 81 mg Hydrochlorothiazide (Hydrochlorothiazide) 12.5 mg PO DAILY [facility] Stop: 12/17/18 09:01 Last Admin: 06/17/18 09:51 Dose: Not Given Naloxone HCl (Narcan) 0.4 mg IVP Q2MIN PRN PRN Reason: SEE COMMENTS Stop: 12/16/18 16:25 Omeprazole (Prilosec) 20 mg PO DAILY [facility] Stop: 12/17/18 09:01 Last Admin: 06/17/18 09:36 Dose: 20 mg - Imaging and Cardiology Echo: report reviewed Cardiac cath: report reviewed Other Results: 12 hour tele: avg HR=48 SB. Min=31 nocturnal. - EKG Interpretation EKG results cardiology: personally reviewed Consult Discharge Plan - Plan Referrals: Zakiya Franco CNP [Primary Care Provider] - 06/24/18 9:00 am (discharge follow up appointment) Prescriptions: Furosemide [Lasix] 20 mg PO PRN PRN #10 tablet PRN Reason: Edema <[email or web address] - Last Filed: 06/17/18 14:25> Date of Encounter: 06/17/18 - Attending Attestation I examined this patient and my medical decision-making was reviewed with the POLICE COMMANDING OFFICER. I agree with the documented findings, disposition and treatment plan as described. Mr. Teran presents with pre syncopal symptoms, SOB and mild troponin elevation appearing chronic. Has known nonobstructive CAD by cath in January of this year. ECG without acute findings. No further testing warranted. His heart rates have averaged in the 40's. Recommend stopping atenolol at this time which could be the contributor to his symptoms. Also probably has underlying COPD and atenolol could have the potential for bronchospasm. Holter at discharge. Recommend outpatient follow up. Assessment and Plan Discussion w patient/family: The assessment and plan as outlined above was discussed with the patient and/or family members who expressed understanding and agreement. All questions were answered. Thank you for involving us in the care of your patient. Please call with any questions. History of Present Illness History of present illness: Mr. Teran is a 63 year old male All Systems Review: The remainder of the systems were reviewed and are negative Physical Examination Vital Signs, Last 4 Hours Temp Pulse Resp BP Pulse Ox 06/17/18 11:13 97.7 F 51 15 116/66 93 Results 06/17/18 04:23 06/17/18 04:23 Lab Results 06/16/18 06/17/18 06/17/18 19:20 04:23 04:23 WBC 8.5 Hgb 15.4 Hct 45.3 Plt Count 204 Sodium 140 Potassium 3.7 Chloride 106 Carbon Dioxide 25 BUN 17 Creatinine 0.83 Glucose 117 H Calcium 9.1 Magnesium 2.2 Troponin I 0.20 H* 06/17/18 09:05 WBC Hgb Hct Plt Count Sodium Potassium Chloride Carbon Dioxide BUN Creatinine Glucose Calcium Magnesium Troponin I 0.19 H*
--- NOTE | 2018-06-17 11:38 | Discharge Summary ---
<Grace Mendez N - Last Filed: 06/17/18 13:40> - NOTES TO OUTPATIENT PROVIDER Notes to Outpatient Provider: Patient presented to the ED complaining of SOB, lightheadedness, and diaphoresis. He did have increased troponins, with a high of 0.20, with no EKG changes. He was found to be bradycardic throughout admission, and reported association of similar episodes of lightheadedness with having taken HCTZ. Both HCTZ and atenolol have been discontinued, with patient instructed to follow up with PCP early next week. Date of Encounter: 06/17/18 Time of Encounter: 11:38 - Discharge Diagnosis (1) COPD (chronic obstructive pulmonary disease) Priority: Secondary Status: Chronic Qualifiers: COPD type: unspecified COPD Qualified Code(s): J44.9 - Chronic obstructive pulmonary disease, unspecified (2) Gastroesophageal reflux disease Priority: Secondary Status: Chronic Qualifiers: Esophagitis presence: esophagitis presence not specified Qualified Code(s) : K21.9 - Gastro-esophageal reflux disease without esophagitis (3) DVT prophylaxis Priority: Secondary Status: Acute (4) HTN (hypertension) Priority: Secondary Status: Chronic Qualifiers: Hypertension type: essential hypertension Qualified Code(s): I10 - Essential (primary) hypertension (5) Elevated troponin Priority: Primary Status: Acute (6) Dyspnea Priority: Primary Status: Acute Qualifiers: Dyspnea type: dyspnea on exertion Qualified Code(s): R06.09 - Other forms of dyspnea Hospital course: Mr. Teran is a 63 year old male who presented to the ED complaining of SOB, lightheadedness, and diaphoresis. He had elevated troponin without EKG changes. He has a recent history of LHC in January, which showed non-emergent CAD. He had resolution of symptoms while under observation. He was noted to be bradycardia, resulting in discontinuation of atenolol. HCTZ was discontinued as well, as patient reports similar symptoms in the past associated with taking that medication. He was given 20mg lasix PRN at discharge for extremity swelling. Discharge discussed with: patient, family, nurse - Time Spent with Patient Total time spent providing and/or coordinating discharge services: - Discharge Medications Prescriptions: Furosemide [Lasix] 20 mg PO PRN PRN #10 tablet PRN Reason: Edema Home Medications: Pantoprazole Sodium 20 mg PO DAILY 06/16/18 [History] Furosemide [Lasix] 20 mg PO PRN PRN #10 tablet 06/17/18 [Rx] Allergies/Adverse Reactions: 3 Allergy/AdvReac Type Severity Reaction Status Date / Time Jcvvjnd-Gnu-Uim Reductase AdvReac Nausea Verified 06/16/18 15:06 Inhibitor [Statins] plastic tape Allergy Rash Uncoded 06/16/18 15:06 Date of admission: 06/16/18 15:51 Primary care physician: Zakiya Franco CNP Discharging clinician: Grace Mendez Anticipated date of discharge: 06/17/18 - Constitutional Vitals: Temp Pulse Resp BP Pulse Ox 97.7 F 51 15 116/66 93 06/17/18 11:13 06/17/18 11:13 06/17/18 11:13 06/17/18 11:13 06/17/18 11:13 Exam: * General: Pleasant middle-aged gentleman in no acute distress. He is alert and oriented, and responds to questions appropriately. * HEENT: Atraumatic and normocephalic. * Cardiovascular: Regular rate and rhythm. No murmurs, rubs, or gallops. * Lungs: Clear bilaterally. No accessory muscle use. * Gastrointestinal: Active bowel sounds x 4 quadrants. Abdomen is soft and nontender. * Extremities: No clubbing, cyanosis, or edema. * Neurologic: Patient moves extremities spontaneously. No focal deficits. - Patient Status Disposition: Home, Self-Care Condition: Good Functional capacity at discharge: independent ambulation Overall status at discharge: patient is progressing back to baseline - Discharge Instructions Instructions: Furosemide (By mouth), Holter Monitoring (DC) Follow Up With: Zakiya Franco CNP [Primary Care Provider] - 06/24/18 9:00 am (discharge follow up appointment) - Diet and Activity Activity: resume usual activities as tolerated Diet: low fat, low cholesterol <ThalIzabela higginsbu - Last Filed: 06/17/18 15:14> Date of Encounter: 06/17/18 - Discharge Diagnosis (1) COPD (chronic obstructive pulmonary disease) Status: Chronic Qualifiers: COPD type: unspecified COPD Qualified Code(s): J44.9 - Chronic obstructive pulmonary disease, unspecified (2) Gastroesophageal reflux disease Status: Chronic Qualifiers: Esophagitis presence: esophagitis presence not specified Qualified Code(s) : K21.9 - Gastro-esophageal reflux disease without esophagitis (3) DVT prophylaxis Status: Acute (4) HTN (hypertension) Status: Chronic Qualifiers: Hypertension type: essential hypertension Qualified Code(s): I10 - Essential (primary) hypertension (5) Elevated troponin Status: Acute (6) Dyspnea Status: Acute Qualifiers: Dyspnea type: dyspnea on exertion Qualified Code(s): R06.09 - Other forms of dyspnea Hospital course: Mr. Teran is a 63 year old male - Time Spent with Patient Total time spent providing and/or coordinating discharge services: Date of admission: 06/16/18 15:51 Primary care physician: Zakiya Franco CNP - Constitutional Vitals: Temp Pulse Resp BP Pulse Ox 97.7 F 51 15 119/72 93 06/17/18 11:13 06/17/18 11:13 06/17/18 11:13 06/17/18 12:58 06/17/18 11:13 - Attending Attestation I examined this patient and my medical decision-making was reviewed with the Resident Physician Dr. Mendez. I agree with the documented findings, disposition and treatment plan as described except to the extent set forth below. Mr. Teran is a 63 year old male with PMHx significant of HTN, GERD, obesity, asthma, HLD and moderate non-obstructive CAD who presented to the ED with complaints of pre-syncope that occurred at yesterday. states he has several episodes since last January. Also reports recently quit taking HCTZ as he would become nauseated and diaphoretic shortly after taking medication. Pt did have sinus bradycardi, so d/c his Atenolol. He was evaluated by Card and recommend to d/c him home on Holeter monitor. So will d.c him home in stable condition today. Gen: A, A, O x 3 Chest: Diminished BS b/l Heart: S1S2+ Bradycardia, no murmurs Addendum entered and electronically signed by Grace Mendez 06/17/18 14:03 : Patient Instructions: DO NOT resume taking atenolol or hydrochlorothiazide. Continue other home medications. Take lasix 20mg daily as needed for swelling. Follow up with your PCP in 3-5 days. Follow up with cardiology as instructed. Return to the emergency department if symptoms recur, or if new concerns arise.
[2018-06-17 14:53] VITALS: BP 119/72
--- NOTE | 2018-06-17 16:23 | Electrocardiograph Report ---
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
== END 2018-06-17 16:00 | disposition home or self-care (01) ==
LOC: 2NENU 11:48 → EMEROO 11:48 → 2NENU 16:17
PROVIDERS: ADMIT Internal Medicine; ATTEND Internal Medicine

== ENCOUNTER 2018-09-17 10:20 | Observation (INO) ==
[2018-09-17] MEDS ORDERED: Isovue-370 500 ML INFUS..BTL IV ONE (10:35)
[2018-09-17] MEDS ORDERED: Aspirin 81 MG TAB.CHEW PO ONE (10:35)
[2018-09-17] MEDS ORDERED: Nitroglycerin 0.4 MG TAB.SUBL SL ONE (10:35)
[2018-09-17 10:57] LABS: Basophils # 0.1 K/mcL (0.0-0.2); Basophils % 0.7 %; Eosinophils # 0.1 K/mcL (0.0-0.6); Eosinophils % 1.4 %; Hematocrit 49.5 % (37.5-50.1); Hemoglobin 16.4 g/dL (12.9-16.9); Immature Granulocytes % 0.4 % (0-4); Lymphocytes # 1.9 K/mcL (0.6-4.6); Lymphocytes % 25.3 %; Mean Corpuscular HGB Conc 33.1 g/dL (31.6-35.5); Mean Corpuscular Hemoglobin 31.8 pg (28.0-33.3); Mean Corpuscular Volume 95.9 fL (83.0-100.0); Mean Platelet Volume 11.3 fL (9.4-12.4); Monocytes # 0.5 K/mcL (0.0-1.3); Neutrophils # 4.8 K/mcL (1.6-8.9); Platelet Count 165 K/mcL (140-400); Red Blood Count 5.16 M/mcL (4.19-5.50); Red Cell Distribution Width 12.2 % (11.5-14.5); Segmented Neutrophils % 65.2 %
[2018-09-17 11:19] LABS: Troponin I 0.08 ng/mL (< 0.04)
--- NOTE | 2018-09-17 11:19 | Emergency Department Note ---
Disposition Clinical Impression: NSTEMI (non-ST elevated myocardial infarction) Disposition: Admitted As Inpatient Condition: Fair Referrals: Zakiya Franco CNP [Primary Care Provider] - Forms: ED Satisfaction Letter General Adult HPI - General Chief complaint: ED Chest Pain Stated complaint: Chest/back pain Time Seen by Provider: 09/17/18 10:29 Source: patient, family Mode of arrival: ambulatory Limitations: no limitations Nursing Notes Reviewed: Yes Vital Signs Reviewed: Yes - History of Present Illness HPI Narrative: 63-year-old male with significant past medical history of COPD, hypertension and coronary artery disease with no stents or previous CABG presenting to the emergency department with chief complaint of substernal chest pain. According to the patient when he woke up this morning he started having severe substernal chest pain that radiated down his right arm. He felt nauseous and diaphoretic. He states the pain then radiated into his mid back. Patient states he came to the emergency department further evaluation. Still having mild substernal chest pressure. At this time all other symptoms have resolved. Patient denies being on any anticoagulation. Pain Scale: 6 - Related Data Home Medications Medication Instructions Recorded Confirmed Pantoprazole Sodium 20 mg PO DAILY 06/16/18 09/17/18 Amlodipine Besylate 2.5 mg PO DAILY 09/17/18 09/17/18 Furosemide [Lasix] 20 mg PO DAILY 09/17/18 09/17/18 Meloxicam 15 mg PO DAILY 09/17/18 09/17/18 Allergies Allergy/AdvReac Type Severity Reaction Status Date / Time Ywtuibh-Gwa-Fye Reductase AdvReac Nausea Verified 09/17/18 10:28 Inhibitor [Statins] plastic tape Allergy Rash Uncoded 06/16/18 15:06 All systems ED: reviewed and negative except as stated. Constitutional: Denies: fever, chills, weakness Eyes: Reports: as per HPI ENT ED: Reports: as per HPI Cardiovascular: Reports: chest pain. Denies: palpitations, dyspnea on exertion Respiratory: Denies: cough, dyspnea, wheezes Gastrointestinal: Reports: nausea. Denies: abdominal pain, vomiting Genitourinary: Reports: as per HPI Musculoskeletal: Reports: as per HPI Integumentary: Reports: as per HPI Neurological: Denies: weakness, numbness, paresthesias Psychiatric: Reports: as per HPI Endocrine: Reports: as per HPI Hematological/Lymphatic: Reports: as per HPI Allergic/Immunologic: Reports: as per HPI Past Medical History - Past Medical History Attestation: Yes The following information was validated with the patient. Medical history: Reports: arthritis, asthma, atrial fibrillation, COPD, coronary artery disease, GERD, GI bleed, hyperlipidemia, hypertension, myocardial infarction Surgical history: Reports: cholecystectomy, colectomy, colostomy, orthopedic, other, other Psychiatric history: Reports: no psych history - Social History Smoking Status: Former smoker Smokeless Tobacco Status: No Alcohol use: Reports: none Drug use: Reports: none Physical Exam - General Limitations: no limitations General appearance: alert, in no apparent distress - Head Head exam: atraumatic, normocephalic, normal inspection - Eye Eye exam: Present: normal appearance. Absent: scleral icterus, conjunctival injection - ENT ENT exam: normal exam, mucous membranes moist - Neck Neck exam: Present: normal inspection, full ROM. Absent: tenderness, meningismus - Chest Chest inspection: Present: normal inspection, symmetric chest wall rise. Absent: tenderness, rash - Respiratory Respiratory exam: Present: normal lung sounds bilaterally. Absent: respiratory distress, wheezes - Cardiovascular Cardiovascular exam: Present: regular rate, normal rhythm, normal heart sounds - Abdominal Exam Abdominal exam: Present: soft, Non-Tender. Absent: distention, guarding, reboun d - Extremities Exam Extremities exam: Present: normal inspection, full ROM - Back Exam Back exam: Present: tenderness (Tenderness to palpation in the mid scapular region) - Neurological Exam Neurological exam: Present: alert, oriented X3 - Psychiatric Psychiatric exam: Present: normal affect, normal mood - Skin Skin exam: Present: warm, intact Course Course Narrative: 63-year-old male presenting with chest pain radiating into his back. In the room patient still complaining of some mild substernal chest pressure but mostly back pain. He is alert and oriented 3 in the room and hemodynamically stable. Patient's physical exam is benign. At this time we will perform a chest pain workup including troponin, EKG. Due to patient's back pain we will also perform a CTA to rule out aortic dissection. Disposition most likely admission the pending results. Patient agrees with this plan. - Reevaluation(s) Reevaluation #1: Patient's laboratory analysis shows elevated troponin at 0.08. Otherwise benign. CTA of the chest does not show any acute abnormality. Patient's chest pain resolved with one nitroglycerin. At this time we will plan to admit the patient with diagnosis of NSTEMI. We will provide the patient with heparin. Patient has remained alert and oriented 3 in the room and hemodynamically stable. Patient agrees with this plan. I spoke with the hospitalist food and nutrition supervisor Dr. Borden who agrees to accept the patient at this time. Vital Signs Temperature 97.8 F 09/17/18 10:26 Pulse Rate 77 09/17/18 10:26 Respiratory Rate 18 09/17/18 10:26 Blood Pressure 148/80 09/17/18 10:26 O2 Sat by Pulse Oximetry 98 09/17/18 10:26 Temperature 97.8 F 09/17/18 10:34 Pulse Rate 77 09/17/18 10:34 Respiratory Rate 18 09/17/18 10:34 Blood Pressure 148/80 09/17/18 10:34 O2 Sat by Pulse Oximetry 98 09/17/18 10:34 Oxygen Delivery Oxygen Delivery Room Air Medical Decision Making - Lab Data Result diagrams: 09/17/18 10:45 09/17/18 10:45 Lab Results 09/17/18 09/17/18 Range/Units 10:45 10:45 WBC 7.4 (4.3-11.1) K/mcL RBC 5.16 (4.19-5.50) M/mcL Hgb 16.4 (12.9-16.9) g/dL Hct 49.5 (37.5-50.1) % MCV 95.9 (83.0-100.0) fL MCH 31.8 (28.0-33.3) pg MCHC 33.1 (31.6-35.5) g/dL RDW 12.2 (11.5-14.5) % Plt Count 165 (140-400) K/mcL MPV 11.3 (9.4-12.4) fL Immature Gran % 0.4 (0-4) % Seg Neutrophils % 65.2 % Lymphocytes % 25.3 % Monocytes % 7.0 % Eosinophils % 1.4 % Basophils % 0.7 % Neutrophils # 4.8 (1.6-8.9) K/mcL Lymphocytes # 1.9 (0.6-4.6) K/mcL Monocytes # 0.5 (0.0-1.3) K/mcL Eosinophils # 0.1 (0.0-0.6) K/mcL Basophils # 0.1 (0.0-0.2) K/mcL Sodium 140 (136-145) mEq/L Potassium 4.3 (3.5-5.1) mEq/L Chloride 107 (98-107) mEq/L Carbon Dioxide 24 (23-29) mEq/L BUN 21 (8-23) mg/dL Creatinine 0.93 (0.70-1.30) mg/dL Est GFR ( Amer) > 60 (> 60) Est GFR (Non-Af Amer) > 60 (> 60) BUN/Creatinine Ratio 23 (6-26) Glucose 140 H (70-105) mg/dL Calculated Osmolality 295 (280-300) Calcium 9.2 (8.6-10.3) mg/dL Troponin I 0.08 H* (< 0.04) ng/mL - EKG Data EKG #1 EKG attestation: Yes I reviewed and interpreted this EKG. EKG results narrative: Sinus rhythm. 69 beats per minute. Left axis deviation. PA interval 181, QRS 85, QTC 404. No sign of acute ST segment elevation or ischemia.
[2018-09-17 11:44] LABS: BUN/Creatinine Ratio 23 (6-26); Blood Urea Nitrogen 21 mg/dL (8-23); Calcium 9.2 mg/dL (8.6-10.3); Carbon Dioxide 24 mEq/L (23-29); Chloride 107 mEq/L (98-107); Glucose 140 mg/dL (70-105); Osmolality,Calculated 295 (280-300); Potassium 4.3 mEq/L (3.5-5.1); Sodium 140 mEq/L (136-145); eGFR For Non-African Americans > 60 (> 60)
[2018-09-17] MEDS ORDERED: *HR* Heparin 5,000 UNIT/ML VIAL IVP ONE (12:41)
[2018-09-17] MEDS ORDERED: *HR* Heparin 5,000 UNIT/ML VIAL IVP PRN ×2 (12:41)
[2018-09-17 13:38] LABS: Heparin anti-factor XA UFH 0.02 IU/mL (0.30-0.70); Prothrombin Time 11.6 Seconds (9.4-12.1)
--- NOTE | 2018-09-17 13:39 | Emergency Department Note ---
Disposition Clinical Impression: NSTEMI (non-ST elevated myocardial infarction) Disposition: Admitted As Inpatient Condition: Fair Referrals: Zakiya Franco PROFESSOR OF [employer] EDUCATION [Primary Care Provider] - Forms: ED Satisfaction Letter General Adult HPI - General Chief complaint: ED Chest Pain Stated complaint: Chest/back pain Time Seen by Provider: 09/17/18 10:29 Source: patient, family Mode of arrival: ambulatory Limitations: no limitations - History of Present Illness Pain Scale: 6 - Related Data Home Medications Medication Instructions Recorded Confirmed Pantoprazole Sodium 20 mg PO DAILY 06/16/18 09/17/18 Amlodipine Besylate 2.5 mg PO DAILY 09/17/18 09/17/18 Furosemide [Lasix] 20 mg PO DAILY 09/17/18 09/17/18 Meloxicam 15 mg PO DAILY 09/17/18 09/17/18 Allergies Allergy/AdvReac Type Severity Reaction Status Date / Time [id number]-Tpi-Cvc Reductase AdvReac Nausea Verified 09/17/18 10:28 Inhibitor [Statins] plastic tape Allergy Rash Uncoded 06/16/18 15:06 Constitutional: Denies: fever, chills, weakness Eyes: Reports: as per HPI ENT ED: Reports: as per HPI Cardiovascular: Reports: chest pain. Denies: palpitations, dyspnea on exertion Respiratory: Denies: cough, dyspnea, wheezes Gastrointestinal: Reports: nausea. Denies: abdominal pain, vomiting Genitourinary: Reports: as per HPI Musculoskeletal: Reports: as per HPI Integumentary: Reports: as per HPI Neurological: Denies: weakness, numbness, paresthesias Psychiatric: Reports: as per HPI Endocrine: Reports: as per HPI Hematological/Lymphatic: Reports: as per HPI Allergic/Immunologic: Reports: as per HPI Past Medical History - Past Medical History Medical history: Reports: arthritis, asthma, atrial fibrillation, COPD, coronary artery disease, GERD, GI bleed, hyperlipidemia, hypertension, myocardial infarction Surgical history: Reports: cholecystectomy, colectomy, colostomy, orthopedic, other, other Psychiatric history: Reports: no psych history - Social History Smoking Status: Former smoker Smokeless Tobacco Status: No Alcohol use: Reports: none Drug use: Reports: none Physical Exam - General Limitations: no limitations General appearance: alert, in no apparent distress Course Vital Signs Temperature 97.8 F 09/17/18 10:26 Pulse Rate 77 10/27/18 10:26 Respiratory Rate 18 09/17/18 10:26 Blood Pressure 148/80 09/17/18 10:26 O2 Sat by Pulse Oximetry 98 09/17/18 10:26 Temperature 97.8 F 09/17/18 10:34 Pulse Rate 77 09/17/18 10:34 Respiratory Rate 18 09/17/18 10:34 Blood Pressure 148/80 09/17/18 10:34 O2 Sat by Pulse Oximetry 98 09/17/18 10:34 Oxygen Delivery Oxygen Delivery Room Air Medical Decision Making - Lab Data Result diagrams: 09/17/18 10:45 09/17/18 10:45 Lab Results 09/17/18 09/17/18 Range/Units 10:45 10:45 WBC 7.4 (4.3-11.1) K/mcL RBC 5.16 (4.19-5.50) M/mcL Hgb 16.4 (12.9-16.9) g/dL Hct 49.5 (37.5-50.1) % MCV 95.9 (83.0-100.0) fL MCH 31.8 (28.0-33.3) pg MCHC 33.1 (31.6-35.5) g/dL RDW 12.2 (11.5-14.5) % Plt Count 165 (140-400) K/mcL MPV 11.3 (9.4-12.4) fL Immature Gran % 0.4 (0-4) % Seg Neutrophils % 65.2 % Lymphocytes % 25.3 % Monocytes % 7.0 % Eosinophils % 1.4 % Basophils % 0.7 % Neutrophils # 4.8 (1.6-8.9) K/mcL Lymphocytes # 1.9 (0.6-4.6) K/mcL Monocytes # 0.5 (0.0-1.3) K/mcL Eosinophils # 0.1 (0.0-0.6) K/mcL Basophils # 0.1 (0.0-0.2) K/mcL Sodium 140 (136-145) mEq/L Potassium 4.3 (3.5-5.1) mEq/L Chloride 107 (98-107) mEq/L Carbon Dioxide 24 (23-29) mEq/L BUN 21 (8-23) mg/dL Creatinine 0.93 (0.70-1.30) mg/dL Est GFR ( Amer) > 60 (> 60) Est GFR (Non-Af Amer) > 60 (> 60) BUN/Creatinine Ratio 23 (6-26) Glucose 140 H (70-105) mg/dL Calculated Osmolality 295 (280-300) Calcium 9.2 (8.6-10.3) mg/dL Troponin I 0.08 H* (< 0.04) ng/mL Attestation Statement - Attestation Attestation: I examined this patient and my medical decision-making was reviewed with the Resident Physician. I agree with the documented findings, disposition and treatment plan as described except to the extent set forth below. 63 year old male presents to the eD with complants of chest pain that radiats into his back. he is found to have pumonary nodule on CT, elevatd troponin of 0.08, without ishemic chanegs on EKG. Elaine has had an PR back in january. We will start heparin and admit to medicine. nitro helped with the chest pain
[2018-09-17] MEDS: Heparin 25,000 UNIT/500 ML D5W 25,000 UNIT/500 ML BAG IVC SCH (13:57)
[2018-09-17] MEDS ORDERED: Naloxone 0.4 MG/ML INJ IVP PRN (14:00)
[2018-09-17] MEDS ORDERED: Ipratropium/Albuterol Neb 3 ML IH PRN (16:07)
--- NOTE | 2018-09-17 16:30 | Internal Med History&Physical ---
Date of Encounter: 09/17/18 Time of Encounter: 16:30 Internal Medicine - H&P: HPI Chief complaint: Chest pain starting yesterday History of present illness: Mr. Teran is a 63 year old male with pmh of COPD, hypertension, non obstructive CAD with recent cath in january of this year presenting with complaints of intermittent chest pain since yesterday and waking him up from sleep today. Pain was substernal, 10/10, sharp and radiating to the back between the shoulder blades. Pain was accompanied with shortness of breath and diaphoresis. It was relieved by nitroglycerin in the ER. He denies any fevers or chills. In the ER, he was noted to have mildly elevated troponins and started on a heparin drip, and cardiology was consulted Past Med Surg Social Fam HX - Past Medical History Medical history: arthritis, asthma, atrial fibrillation, COPD, coronary artery disease, GERD, GI bleed, hyperlipidemia, hypertension, myocardial infarction Additional medical history: hemorrhoids, ED, diverticulosis Psychiatric history: no psych history - Past Surgical History Surgical History: cholecystectomy, colectomy, colostomy, orthopedic, other, other Additional surgical history: rotator cuff tear, heart cath-no stents - Social History Smoking Status: Former smoker Smokeless Tobacco Status: No Alcohol use: none Drug use: none - Family History Mother Adopted: No Family Member Ethnicity: Non- Living Status: Hx Family Cardiac Disorders: Yes (CHF) Hx Family Respiratory Disorders: No Hx Family Cancer: No Hx Family GI Disorders: No Hx Family Endocrine Disorder: Yes (Goiter) Hx Family Neuromuscular Disorders: No Hx Family Neurologic Disorders: Yes (TIA's) Hx Family HEENT Disorders: No Hx Family Autoimmune Disorders: No Internal Medicine - H&P: Meds Pantoprazole Sodium 20 mg PO DAILY 06/16/18 [History] Amlodipine Besylate 2.5 mg PO DAILY 09/17/18 [History] Furosemide [Lasix] 20 mg PO DAILY 09/17/18 [History] Meloxicam 15 mg PO DAILY 09/17/18 [History] Allergy/AdvReac Type Severity Reaction Status Date / Time Xnnsesc-Wru-Sqb Reductase AdvReac Nausea Verified 09/17/18 10:28 Inhibitor [Statins] plastic tape Allergy Rash Uncoded 06/16/18 15:06 All Systems PM: A 10-system review of systems was performed and is negative for pertinent findings except as documented above in the HPI. - Constitutional Constitutional: no chills, no fever(s), no night sweats - EENT Eyes: no change in vision, no discharge, no pain, no photophobia Ears: no ear discharge, no ear pain, no tinnitus Nose, mouth and throat: no dysphagia, no nasal discharge, no neck pain, no sore throat - Cardiovascular Cardiovascular ROS IM: chest pain, dyspnea on exertion, no diaphoresis, no dyspnea, no lightheadedness, no palpitations, no syncope - Respiratory Respiratory: no cough, no dyspnea, no wheezing, no excessive phlegm production - Gastrointestinal Gastrointestinal: no abdominal pain, no diarrhea, no hematemesis, no hematochezia, no melena, no nausea, no vomiting - Musculoskeletal Musculoskeletal ROS IM: no numbness, no tingling - Integumentary Integumentary IM: no rash, no unusual bruising - Neurological Neurological ROS: no confusion, no convulsions, no focal weakness, no numbness, no tingling, no tremor(s) - Hematologic/Lymphatic Hematologic/Lymphatic: no easy bruising - Constitutional Vitals: Temp Pulse Resp BP Pulse Ox 98.2 F 69 21 157/80 95 09/17/18 15:35 09/17/18 15:35 09/17/18 15:35 09/17/18 15:35 09/17/18 15:35 Exam: NAD - Head Head exam: Present: atraumatic, normocephalic - Eye Eye exam: Present: PERRL, conjuntiva pink, sclera anicteric Pupils: Present: PERRL - Neck Neck exam general surgery: Present: supple, trachea midline. Absent: lymphadenopathy - Respiratory Respiratory exam: Present: CTAB. Absent: accessory muscle use, rales, rhonchi, wheezes - Cardiovascular Cardiovascular exam: Present: RRR, +S1, +S2. Absent: diastolic murmur, gallop, rubs, systolic murmur - GI/Abdominal GI/Abdominal exam: Present: normal bowel sounds, soft, no peritoneal signs. Absent: distended, tenderness - Extremities Exam Extremities exam: Present: warm, radial pulses palpable and symmetrical. Absent: calf tenderness, cyanotic, pedal edema - Neurological Exam Neurological exam: Present: CN II-XII intact, oriented X3, no focal deficits. Absent: pronater drift, facial droop, speech deficit - Skin Skin exam: Present: dry, intact Internal Med - H&P Results - Labs CBC & Chem 7: 09/17/18 10:45 09/17/18 10:45 Labs: Short CBC 09/17/18 Range/Units 10:45 WBC 7.4 (4.3-11.1) K/mcL Hgb 16.4 (12.9-16.9) g/dL Hct 49.5 (37.5-50.1) % Plt Count 165 (140-400) K/mcL Neutrophils # 4.8 (1.6-8.9) K/mcL BMP 09/17/18 10:45 Sodium 140 Potassium 4.3 Chloride 107 Carbon Dioxide 24 BUN 21 Creatinine 0.93 Glucose 140 H Calcium 9.2 Cardiac Enzymes 09/17/18 09/17/18 Range/Units 10:45 14:23 Troponin I 0.08 H* 0.08 H* (< 0.04) ng/mL - Impressions ITS Impressions Abdomen/Pelvis CTA 09/17/18 10:35 IMPRESSION: 1. Moderate aortic atherosclerosis. No aortic aneurysm or dissection. 2. Mild bilateral lower lobe posterior subpleural bronchiolectasis. There is a stable 2 mm left upper lobe pulmonary nodule compared to the prior 2018 exam, per Fleischner Society criteria no follow-up imaging is recommended. 3. Postsurgical change of the abdomen with adhesions and stable wide-mouth umbilical level incisional hernia. No acute abdominal/pelvic process. 4. Normal spine alignment with degenerative changes. No acute osseous abnormality. D/ / 09/17/2018 13:37:48 Omari Lopez MD / [email or web address] Interpreting Provider: Omari Lopez MD Chest CTA 09/17/18 10:35 IMPRESSION: 1. Moderate aortic atherosclerosis. No aortic aneurysm or dissection. 2. Mild bilateral lower lobe posterior subpleural bronchiolectasis. There is a stable 2 mm left upper lobe pulmonary nodule compared to the prior 2018 exam, per Fleischner Society criteria no follow-up imaging is recommended. 3. Postsurgical change of the abdomen with adhesions and stable wide-mouth umbilical level incisional hernia. No acute abdominal/pelvic process. 4. Normal spine alignment with degenerative changes. No acute osseous abnormality. D/ / 09/17/2018 13:37:48 Omari Lopez MD / anton Interpreting Provider: Omari Lopez MD - Assessment and plan (1) Chest pain Current Visit: Yes Status: Acute Assessment and plan: Pt presents with chest pain and has risk factors for CAD Start on aspirin, continue heparin drip. Cardiology consulted and appreciate recs Trend troponins, obtain 2D echo Qualifiers: Chest pain type: unspecified Qualified Code(s): R07.9 - Chest pain, unspecified (2) Coronary artery disease Current Visit: Yes Status: Acute Assessment and plan: Non obstructive CAD s/p cath in january. Obtain echo Cardiology recs appreciated Qualifiers: Qualified Code(s): I25.10 - Atherosclerotic heart disease of [place] coronary artery without angina pectoris (3) COPD (chronic obstructive pulmonary disease) Current Visit: Yes Status: Chronic Assessment and plan: No acute exacerbation. nebs PRN Qualifiers: COPD type: unspecified COPD Qualified Code(s): J44.9 - Chronic obstructive pulmonary disease, unspecified (4) Essential hypertension Current Visit: Yes Status: Chronic Assessment and plan: Continue amlodipine (5) Obesity (BMI 35.0-39.9 without comorbidity) Current Visit: Yes Status: Acute Assessment and plan: Diet and exercise (6) DVT prophylaxis Current Visit: Yes Status: Acute Assessment and plan: Heparin sc - Time Spent With Patient Total time spent is greater than 50% in coordination of care (as documented) at patient's floor/unit and/or counseling patient:
[2018-09-17] MEDS ORDERED: Nitroglycerin 0.4 MG TAB.SUBL SL PRN (18:02)
[2018-09-17] MEDS ORDERED: MORPHINE SUL Oral CONC 10 MG/0.5 ML ORAL.SYG SL PRN (18:03)
[2018-09-18 02:40] LABS: Basophils # 0.1 K/mcL (0.0-0.2); Basophils % 0.5 %; Eosinophils # 0.2 K/mcL (0.0-0.6); Eosinophils % 1.7 %; Hematocrit 46.8 % (37.5-50.1); Hemoglobin 15.5 g/dL (12.9-16.9); Immature Granulocytes % 0.3 % (0-4); Lymphocytes # 3.2 K/mcL (0.6-4.6); Lymphocytes % 33.5 %; Mean Corpuscular HGB Conc 33.1 g/dL (31.6-35.5); Mean Corpuscular Hemoglobin 31.4 pg (28.0-33.3); Mean Corpuscular Volume 94.7 fL (83.0-100.0); Mean Platelet Volume 10.6 fL (9.4-12.4); Monocytes # 0.8 K/mcL (0.0-1.3); Monocytes % 8.4 %; Neutrophils # 5.3 K/mcL (1.6-8.9); Platelet Count 224 K/mcL (140-400); Red Blood Count 4.94 M/mcL (4.19-5.50); Red Cell Distribution Width 12.1 % (11.5-14.5); Segmented Neutrophils % 55.6 %
[2018-09-18 02:59] LABS: BUN/Creatinine Ratio 21 (6-26); Blood Urea Nitrogen 17 mg/dL (8-23); Calcium 9.1 mg/dL (8.6-10.3); Carbon Dioxide 24 mEq/L (23-29); Chloride 105 mEq/L (98-107); Glucose 98 mg/dL (70-105); Magnesium 2.1 mg/dL (1.6-2.6); Osmolality,Calculated 288 (280-300); Phosphorous 3.9 mg/dL (2.7-4.5); Potassium 3.7 mEq/L (3.5-5.1); Sodium 138 mEq/L (136-145); eGFR For Non-African Americans > 60 (> 60)
[2018-09-18] MEDS: Heparin 25,000 UNIT/500 ML D5W 25,000 UNIT/500 ML BAG IVC SCH (06:31)
--- NOTE | 2018-09-18 08:05 | Internal Med Progress Note ---
Hospitalist Progress Note - Encounter Date of Encounter: 09/18/18 Time of Encounter: 08:00 - Exam Vitals: Temp Pulse Resp BP Pulse Ox 97.7 F 55 20 131/72 94 09/18/18 07:59 09/18/18 07:59 09/18/18 07:59 09/18/18 07:59 09/18/18 07:59 Exam: Gen - Awake, alert, oriented x 3, no acute distress HEENT - NCAT, PERRLA, EOMI, hearing grossly intact, oropharynx benign CV - RRR, normal S1 and S2, no M/R/G, no BLE edema Resp - Normal WOB, CTAB, no W/R/R GI - Soft, NT/ND, no masses, normal bowel sounds, Skin - Warm, dry, no rashes/lesions/ulcers Psych - Normal mood and affect, no depression or anxiety - Assessment and Plan (1) Chest pain Current Visit: Yes Status: Acute Assessment and Plan: Pt presents with chest pain and has risk factors for CAD Start on aspirin, continue heparin drip. Cardiology consulted and appreciate recs Troponins less than previous baseline. As non obstructive CAD from CAth in january. cardiology recommend limited echo and no further intervention if negative Start on imdur. D/C heparin drip (2) Coronary artery disease Current Visit: Yes Status: Acute Assessment and Plan: Non obstructive CAD s/p cath in january. Obtain echo Cardiology recs appreciated (3) COPD (chronic obstructive pulmonary disease) Current Visit: Yes Status: Chronic Assessment and Plan: No acute exacerbation. nebs PRN (4) Essential hypertension Current Visit: Yes Status: Chronic Assessment and Plan: Continue amlodipine (5) Obesity (BMI 35.0-39.9 without comorbidity) Current Visit: Yes Status: Acute Assessment and Plan: Diet and exercise (6) DVT prophylaxis Current Visit: Yes Status: Acute Assessment and Plan: Heparin sc - Time Spent with Patient Total time spent is greater than 50% in coordination of care (as documented) at patient's floor/unit and/or counseling patient: Internal Medicine: Result - Labs CBC & Chem 7: 09/18/18 02:16 09/18/18 02:16 Labs: Short CBC 09/17/18 09/18/18 Range/Units 10:45 02:16 WBC 7.4 9.6 (4.3-11.1) K/mcL Hgb 16.4 15.5 (12.9-16.9) g/dL Hct 49.5 46.8 (37.5-50.1) % Plt Count 165 224 (140-400) K/mcL Neutrophils # 4.8 5.3 (1.6-8.9) K/mcL BMP 09/17/18 09/18/18 10:45 02:16 Sodium 140 138 Potassium 4.3 3.7 Chloride 107 105 Carbon Dioxide 24 24 BUN 21 17 Creatinine 0.93 0.82 Glucose 140 H 98 Calcium 9.2 9.1 Cardiac Enzymes 09/17/18 09/17/18 09/17/18 Range/Units 10:45 14:23 19:44 Troponin I 0.08 H* 0.08 H* 0.08 H* (< 0.04) ng/mL 09/18/18 Range/Units 02:16 Troponin I 0.09 H* (< 0.04) ng/mL - ABG Interpretation ABG results: PT/INR, D-dimer PT 11.6 Seconds (9.4-12.1) 09/17/18 13:12 - Impressions Impressions Abdomen/Pelvis CTA 09/17/18 10:35 IMPRESSION: 1. Moderate aortic atherosclerosis. No aortic aneurysm or dissection. 2. Mild bilateral lower lobe posterior subpleural bronchiolectasis. There is a stable 2 mm left upper lobe pulmonary nodule compared to the prior 2018 exam, per Fleischner Society criteria no follow-up imaging is recommended. 3. Postsurgical change of the abdomen with adhesions and stable wide-mouth umbilical level incisional hernia. No acute abdominal/pelvic process. 4. Normal spine alignment with degenerative changes. No acute osseous abnormality. D/ / 09/17/2018 13:37:48 Omari Lopez MD / [email or web address] Interpreting Provider: Omari Lopez MD Chest CTA 09/17/18 10:35 IMPRESSION: 1. Moderate aortic atherosclerosis. No aortic aneurysm or dissection. 2. Mild bilateral lower lobe posterior subpleural bronchiolectasis. There is a stable 2 mm left upper lobe pulmonary nodule compared to the prior 2018 exam, per Fleischner Society criteria no follow-up imaging is recommended. 3. Postsurgical change of the abdomen with adhesions and stable wide-mouth umbilical level incisional hernia. No acute abdominal/pelvic process. 4. Normal spine alignment with degenerative changes. No acute osseous abnormality. D/ / 09/17/2018 13:37:48 Omari Lopez MD / anton Interpreting Provider: Omari Lopez MD Consult Discharge Plan - Plan Referrals: Zakiya Franco, RECRUITING OPERATIONS CONSULTANT [Primary Care Provider] - Prescriptions: Aspirin 81 mg PO DAILY 30 Days #30 tab.chew Isosorbide MONOnitrate (24 HR) [Imdur] 30 mg PO DAILY 30 Days #30 tab.er.24h (1) Chest pain Qualifiers: Chest pain type: unspecified Qualified Code(s): R07.9 - Chest pain, unspecified (2) Coronary artery disease Qualifiers: Qualified Code(s): I25.10 - Atherosclerotic heart disease of [place] coronary artery without angina pectoris (3) COPD (chronic obstructive pulmonary disease) Qualifiers: COPD type: unspecified COPD Qualified Code(s): J44.9 - Chronic obstructive pulmonary disease, unspecified
[2018-09-18] MEDS: amLODIPine 5 MG TABLET PO SCH (09:14)
[2018-09-18] MEDS: Aspirin 81 MG TAB.CHEW PO SCH (09:14)
--- NOTE | 2018-09-18 09:47 | Discharge Summary ---
Orders not resulted at time of discharge: Pending orders 09/17/18 10:35 ECG 12 lead ECG [ECG] Stat 09/17/18 14:04 EV echocardiogram Routine 09/19/18 02:15 Heparin anti-factor XA UFH [COAG] Timed Date of Encounter: 09/18/18 Time of Encounter: 09:40 - Discharge Diagnosis (1) Chest pain Priority: Primary Status: Acute Assessment and Plan: 63 year old male with pmh of COPD, hypertension, non obstructive CAD with recent cath in january of this year presenting with complaints of intermittent chest pain since yesterday and waking him up from sleep today. Pain was substernal, 10/10, sharp and radiating to the back between the shoulder blades. Pain was accompanied with shortness of breath and diaphoresis. It was relieved by nitroglycerin in the ER. He denies any fevers or chills He was assessed with chest pain with risk factors for CAD. He was started on aspirin, continue heparin drip. It was noted his troponins were less than previous baseline. He also has non obstructive CAD from Cath in january. cardiology recommend limited echo and no further intervention if negative. Echo came back with no wall motion abnormalities. Will start on imdur and discharge home Qualifiers: Chest pain type: unspecified Qualified Code(s): R07.9 - Chest pain, unspecified (2) Coronary artery disease Priority: Primary Status: Acute Qualifiers: Qualified Code(s): I25.10 - Atherosclerotic heart disease of [place] coronary artery without angina pectoris (3) COPD (chronic obstructive pulmonary disease) Priority: Primary Status: Chronic Qualifiers: COPD type: unspecified COPD Qualified Code(s): J44.9 - Chronic obstructive pulmonary disease, unspecified (4) Essential hypertension Priority: Primary Status: Chronic (5) Obesity (BMI 35.0-39.9 without comorbidity) Priority: Primary Status: Acute (6) DVT prophylaxis Priority: Primary Status: Acute Hospital course: Mr. Teran is a 63 year old male - Time Spent with Patient Total time spent providing and/or coordinating discharge services: - Discharge Medications Prescriptions: Aspirin 81 mg PO DAILY 30 Days #30 tab.chew Isosorbide MONOnitrate (24 HR) [Imdur] 30 mg PO DAILY 30 Days #30 tab.er.24h Home Medications: Pantoprazole Sodium 20 mg PO DAILY 06/16/18 [History] Amlodipine Besylate 2.5 mg PO DAILY 09/17/18 [History] Furosemide [Lasix] 20 mg PO DAILY 09/17/18 [History] Meloxicam 15 mg PO DAILY 09/17/18 [History] Aspirin 81 mg PO DAILY 30 Days #30 tab.chew 09/18/18 [Rx] Isosorbide MONOnitrate (24 HR) [Imdur] 30 mg PO DAILY 30 Days #30 tab.er.24h 09/18/18 [Rx] Allergies/Adverse Reactions: Allergy/AdvReac Type Severity Reaction Status Date / Time Ozxzvok-Yrt-Gza Reductase AdvReac Nausea Verified 09/17/18 10:28 Inhibitor [Statins] plastic tape Allergy Rash Uncoded 06/16/18 15:06 Date of admission: 09/17/18 14:36 Primary care physician: Zakiya Franco CNP Consults: 09/17/18 13:03 Consult to Cardiology [CONS] Stat Comment: Consulting Provider: [facility] [place] Reason for Consult: NSTEMI Call Completed: No - Constitutional Vitals: Temp Pulse Resp BP Pulse Ox 97.7 F 55 20 131/72 94 09/18/18 07:59 09/18/18 07:59 09/18/18 07:59 09/18/18 07:59 09/18/18 07:59 Exam: Gen - Awake, alert, oriented x 3, no acute distress HEENT - NCAT, PERRLA, EOMI, hearing grossly intact, oropharynx benign CV - RRR, normal S1 and S2, no M/R/G, no BLE edema Resp - Normal WOB, CTAB, no W/R/R GI - Soft, NT/ND, no masses, normal bowel sounds, Skin - Warm, dry, no rashes/lesions/ulcers Psych - Normal mood and affect, no depression or anxiety - Patient Status Disposition: Home, Self-Care Condition: Good - Discharge Instructions Follow Up With: Zakiya Franco CNP [Primary Care Provider] -
--- NOTE | 2018-09-18 10:16 | Event Note ---
Date of Encounter: 09/18/18 Time of Encounter: 09:45 - Cardiology Event Note Discussed with primary service, cardiology consult canceled. I discussed with patient and family previous catheterization results from January 2018 which showed nonobstructive CAD with mid LAD 40% and mid RCA 50% lesions. Of note at time of catheterization peak troponin 0.21 and had pH probe 0.10 June 2018. Peak troponin during this hospital stay 0.09. Limited echo pending. Assuming no significant changes patient will follow-up in outpatient setting. Being started on long-acting nitrate of Imdur 30mg PO daily. Discussed and reviewed with Dr. Keller. Discussed with primary service. Please consult cardiology if any changes or abnormal echo findings. All questions answered. Follow-up arranged.
[2018-09-18] MEDS: Isosorbide MONOnitrate (24 HR) 30 MG TAB.ER.24H PO SCH (10:27)
[2018-09-18] MEDS ORDERED: Acetaminophen 325 MG TABLET PO PRN (15:46)
[2018-09-19 02:46] VITALS: BP 106/50
--- NOTE | 2018-09-19 07:58 | Internal Med Progress Note ---
Hospitalist Progress Note - Encounter Date of Encounter: 09/19/18 Time of Encounter: 08:00 - Exam Vitals: Temp Pulse Resp BP Pulse Ox 97.9 F 54 14 106/50 94 09/19/18 00:00 09/19/18 00:00 09/19/18 00:00 09/19/18 00:00 09/19/18 00:00 Exam: Gen - Awake, alert, oriented x 3, no acute distress HEENT - NCAT, PERRLA, EOMI, hearing grossly intact, oropharynx benign CV - RRR, normal S1 and S2, no M/R/G, no BLE edema Resp - Normal WOB, CTAB, no W/R/R GI - Soft, NT/ND, no masses, normal bowel sounds, Skin - Warm, dry, no rashes/lesions/ulcers Psych - Normal mood and affect, no depression or anxiety - Assessment and Plan (1) Chest pain Current Visit: Yes Status: Acute Assessment and Plan: 63 year old male with pmh of COPD, hypertension, non obstructive CAD with recent cath in january of this year presenting with complaints of intermittent chest pain since yesterday and waking him up from sleep today. Pain was substernal, 10/10, sharp and radiating to the back between the shoulder blades. Pain was accompanied with shortness of breath and diaphoresis. It was relieved by nitroglycerin in the ER. He denies any fevers or chills He was assessed with chest pain with risk factors for CAD. He was started on aspirin, continue heparin drip. It was noted his troponins were less than previous baseline. He also has non obstructive CAD from Cath in january. cardiology recommend limited echo and no further intervention if negative. Echo came back with no wall motion abnormalities. Cardiology recommended imdur but patient declined due to headaches Patient was discharged on 09/19 (2) Coronary artery disease Current Visit: Yes Status: Acute Assessment and Plan: Non obstructive CAD s/p cath in january. Obtain echo Cardiology recs appreciated (3) COPD (chronic obstructive pulmonary disease) Current Visit: Yes Status: Chronic Assessment and Plan: No acute exacerbation. nebs PRN (4) Essential hypertension Current Visit: Yes Status: Chronic Assessment and Plan: Continue amlodipine (5) Obesity (BMI 35.0-39.9 without comorbidity) Current Visit: Yes Status: Acute Assessment and Plan: Diet and exercise (6) DVT prophylaxis Current Visit: Yes Status: Acute Assessment and Plan: Heparin sc - Time Spent with Patient Total time spent is greater than 50% in coordination of care (as documented) at patient's floor/unit and/or counseling patient: Internal Medicine: Result - Labs CBC & Chem 7: 09/18/18 02:16 09/18/18 02:16 - ABG Interpretation ABG results: PT/INR, D-dimer PT 11.6 Seconds (9.4-12.1) 09/17/18 13:12 - Impressions Impressions Echocardiogram Limited Views 09/18/18 09:47 Impressions: LVEF 55-60%. Normal LV chamber size, wall thickness and function. Normal right ventricular structure. Consult Discharge Plan - Plan Instructions: Aspirin (By mouth), Isosorbide Mononitrate (By mouth), Coronary Artery Disease (DC), Chest Pain (DC), Chronic Obstructive Pulmonary Disease (DC), Chronic Hypertension (DC) Referrals: Zakiya Franco, DIRECTOR CREDIT RISK [Primary Care Provider] - 09/26/18 9:00 am Prescriptions: Aspirin 81 mg PO DAILY 30 Days #30 tab.chew Isosorbide MONOnitrate (24 HR) [Imdur] 30 mg PO DAILY 30 Days #30 tab.er.24h (1) Chest pain Qualifiers: Chest pain type: unspecified Qualified Code(s): R07.9 - Chest pain, unspecified (2) Coronary artery disease Qualifiers: Qualified Code(s): I25.10 - Atherosclerotic heart disease of [place] coronary artery without angina pectoris (3) COPD (chronic obstructive pulmonary disease) Qualifiers: COPD type: unspecified COPD Qualified Code(s): J44.9 - Chronic obstructive pulmonary disease, unspecified
[2018-09-19] MEDS: amLODIPine 5 MG TABLET PO SCH (09:01)
[2018-09-19] MEDS: Aspirin 81 MG TAB.CHEW PO SCH (09:01)
[2018-09-19] MEDS: Isosorbide MONOnitrate (24 HR) 30 MG TAB.ER.24H PO SCH (09:03)
--- NOTE | 2018-09-23 10:13 | Electrocardiograph Report ---
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
--- NOTE | 2018-09-23 18:08 | Electrocardiograph Report ---
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
== END 2018-09-19 14:27 | disposition home or self-care (01) ==
LOC: 2NENU 10:20 → EMEROOARM 10:20 → 2NENU 14:59
PROVIDERS: ADMIT Internal Medicine Nephrology; ATTEND Internal Medicine Nephrology

== ENCOUNTER 2018-12-18 15:58 | Observation (INO) ==
[2018-12-18] MEDS ORDERED: Ipratropium/Albuterol Neb 3 ML IH ONE (16:08)
--- NOTE | 2018-12-18 16:18 | Emergency Department Note ---
Disposition Clinical Impression: Community acquired pneumonia Qualifiers: Laterality: unspecified laterality Qualified Code(s): J18.9 - Pneumonia, unspecified organism Disposition: Still a Patient General Adult HPI - General Chief complaint: ED Shortness of Breath/Dyspnea Stated complaint: Weakness Time Seen by Provider: 12/18/18 16:04 Source: patient, family Limitations: no limitations Nursing Notes Reviewed: Yes Vital Signs Reviewed: Yes - History of Present Illness HPI Narrative: Attestation note: Patient was seen with the emergency medicine resident/nurse practitioner/physician assistant clinical nurse manager/transitional resident/medical student: Dr. Clair Sevilla I have personally performed a face to face evaluation on this patient. I have reviewed and agree with history and physical examination patient management and disposition. Briefly the salient points of the case are as follows: 63-year-old nonsmoking male was recently treated for URI on amoxicillin moved down to his chest and he has been getting progressively weaker over the past week with cough with green sputum fatigue denies chest pain vomiting or chills. He has bilateral expiratory wheezes. Patient will undergo DuoNeb screening labs chest x-ray EKG. Admission is possible. Disposition pending Pain Scale: 5 - Related Data Home Medications Medication Instructions Recorded Confirmed Pantoprazole Sodium 20 mg PO DAILY 06/16/18 09/17/18 Amlodipine Besylate 2.5 mg PO DAILY 09/17/18 09/17/18 Furosemide [Lasix] 20 mg PO DAILY 09/17/18 09/17/18 Meloxicam 15 mg PO DAILY 09/17/18 09/17/18 Allergies Allergy/AdvReac Type Severity Reaction Status Date / Time Ripdisa-Hhe-Csu Reductase AdvReac Nausea Verified 09/17/18 10:28 Inhibitor [Statins] plastic tape Allergy Rash Uncoded 06/16/18 15:06 Past Medical History - Past Medical History Medical history: Reports: arthritis, asthma, atrial fibrillation, COPD, coronary artery disease, GERD, GI bleed, hyperlipidemia, hypertension, myocardial infarction Surgical history: Reports: cholecystectomy, colectomy, colostomy, orthopedic, other, other Psychiatric history: Reports: no psych history - Social History Smoking Status: Former smoker Smokeless Tobacco Status: No Alcohol use: Reports: none Drug use: Reports: none Physical Exam - General Limitations: no limitations General appearance: alert, anxious Course Vital Signs Temperature 98.2 F 12/18/18 16:00 Pulse Rate 69 12/18/18 16:00 Respiratory Rate 20 12/18/18 16:00 Blood Pressure 159/87 12/18/18 16:00 O2 Sat by Pulse Oximetry 94 12/18/18 16:00 Temperature 98.2 F 12/18/18 16:00 Pulse Rate 69 12/18/18 16:00 Respiratory Rate 20 12/18/18 16:00 Blood Pressure 159/87 12/18/18 16:00 O2 Sat by Pulse Oximetry 94 12/18/18 16:00 Oxygen Delivery Oxygen Delivery Room Air
--- NOTE | 2018-12-18 16:25 | Emergency Department Note ---
Disposition Clinical Impression: Community acquired pneumonia Qualifiers: Laterality: unspecified laterality Qualified Code(s): J18.9 - Pneumonia, unspecified organism Disposition: Admitted As Inpatient Condition: Good Forms: ED Satisfaction Letter Time of Disposition: 18:07 General Adult HPI - General Chief complaint: ED Shortness of Breath/Dyspnea Stated complaint: Weakness Time Seen by Provider: 12/18/18 16:04 Source: patient Mode of arrival: private vehicle Limitations: no limitations Nursing Notes Reviewed: Yes Vital Signs Reviewed: Yes - History of Present Illness HPI Narrative: Patient is a 63-year-old male with significant cardiac history and underlying COPD presenting with difficulty in breathing and weakness that has been steadily getting worse over the last 2 weeks. Patient was seen by his primary care physician 2 weeks ago for sinus symptoms and placed on amoxicillin, which she completed. Now he states that he feels the sinus infection is going down into his lungs, he has noted increased production of sputum that is now green and brown, including increased weakness and difficulty in ambulating. Patient denies fevers but endorses chills, also endorses headache, muscle aches, chest pain with coughing. Patient denies abdominal pain, nausea vomiting, diarrhea or constipation. Patient notes a smoking history 21 years ago but none since then and no alcohol for the last 10 years, and denies illicit or illegal drugs. Pain Scale: 5 - Related Data Home Medications Medication Instructions Recorded Confirmed Pantoprazole Sodium 20 mg PO DAILY 06/16/18 09/17/18 Amlodipine Besylate 2.5 mg PO DAILY 09/17/18 09/17/18 Furosemide [Lasix] 20 mg PO DAILY 09/17/18 09/17/18 Meloxicam 15 mg PO DAILY 09/17/18 09/17/18 Allergies Allergy/AdvReac Type Severity Reaction Status Date / Time Vkpumpy-Mxp-Fnw Reductase AdvReac Nausea Verified 09/17/18 10:28 Inhibitor [Statins] plastic tape Allergy Rash Uncoded 06/16/18 15:06 All systems ED: reviewed and negative except as stated. Review of Systems: As Per HPI Constitutional: Reports: chills. Denies: fever ENT ED: Denies: throat pain Cardiovascular: Reports: chest pain (when coughing), dyspnea on exertion Respiratory: Reports: cough, wheezes, sputum production (increased, green/brown) Gastrointestinal: Denies: abdominal pain, nausea, vomiting, diarrhea, constipation Musculoskeletal: Reports: myalgia Neurological: Reports: headache, weakness Past Medical History - Past Medical History Medical history: Reports: arthritis, asthma, atrial fibrillation, COPD, coronary artery disease, GERD, GI bleed, hyperlipidemia, hypertension, myocardial infarction Surgical history: Reports: cholecystectomy, colectomy, colostomy, orthopedic, other, other Psychiatric history: Reports: no psych history - Social History Smoking Status: Former smoker Smokeless Tobacco Status: No Alcohol use: Reports: none Drug use: Reports: none Physical Exam - General Limitations: no limitations General appearance: alert, anxious - Head Head exam: atraumatic, normocephalic - Eye Eye exam: Present: normal appearance, PERRL, EOMI - ENT ENT exam: normal exam, normal oropharynx, mucous membranes moist - Neck Neck exam: Present: normal inspection, full ROM - Chest Chest inspection: Present: normal inspection, symmetric chest wall rise. Absent: tenderness - Respiratory Respiratory exam: Present: wheezes. Absent: respiratory distress - Cardiovascular Cardiovascular exam: Present: regular rate, normal rhythm - Abdominal Exam Abdominal exam: Present: soft, Non-Tender. Absent: distention, guarding - Extremities Exam Extremities exam: Present: normal inspection, full ROM - Back Exam Back exam: Present: normal inspection, full ROM. Absent: tenderness - Neurological Exam Neurological exam: Present: alert, oriented X3 - Psychiatric Psychiatric exam: Present: normal affect, normal mood - Skin Skin exam: Present: warm, dry, intact Course Course Narrative: Pt has a hx of multiple admissions for cardiac issues, was treated with antibiotics two weeks ago without resolution of symptoms. Suspect pneumonia/empyema, or other respiratory infection. Given pt's comorbidities, patient may need to be admitted. Will wait for CXR, basic lab work to include CBC, CMP, Lactic, BNP, EKG for final disposition. Vital Signs Temperature 98.2 F 12/18/18 16:00 Pulse Rate 69 12/18/18 16:00 Respiratory Rate 20 12/18/18 16:00 Blood Pressure 159/87 12/18/18 16:00 O2 Sat by Pulse Oximetry 94 12/18/18 16:00 Temperature 98.2 F 12/18/18 16:00 Pulse Rate 69 12/18/18 17:01 Respiratory Rate 16 12/18/18 17:01 Blood Pressure 127/66 12/18/18 17:01 O2 Sat by Pulse Oximetry 93 12/18/18 17:03 Oxygen Delivery Oxygen Delivery Room Air Medical Decision Making - MDM Narrative Medical decision making narrative: Pt is not normally on any oxygen at home, but is slightly hypoxic at 93% on room air and still feels as if he cannot catch his breath. As he has already completed a course of antibiotics at home without improvement, he will be admitted for COPD exacerbation with hypoxia. Spoke with pt and family and they verbalized understanding and agreement with the plan. Pt and family were given an opportunity to ask questions and all of their concerns were addressed. Spoke with Dr. Walton, admitting hospitalist, who accepts the patient. Pt remained stable while in the department. - Medical Records Medical records reviewed: Yes I reviewed the patient's medical records. - Lab Data Lab results reviewed: Yes I reviewed the patient's lab results. Result diagrams: 12/18/18 16:30 12/18/18 16:30 Lab Results 12/18/18 12/18/18 12/18/18 Range/Units 16:30 16:30 16:30 WBC 9.1 (4.3-11.1) K/mcL RBC 4.88 (4.19-5.50) M/mcL Hgb 15.2 (12.9-16.9) g/dL Hct 45.0 (37.5-50.1) % MCV 92.2 (83.0-100.0) fL MCH 31.1 (28.0-33.3) pg MCHC 33.8 (31.6-35.5) g/dL RDW 12.3 (11.5-14.5) % Plt Count 236 (140-400) K/mcL MPV 10.5 (9.4-12.4) fL Immature Gran % 0.4 (0-4) % Seg Neutrophils % 59.0 % Lymphocytes % 28.0 % Monocytes % 9.8 % Eosinophils % 2.1 % Basophils % 0.7 % Neutrophils # 5.4 (1.6-8.9) K/mcL Lymphocytes # 2.5 (0.6-4.6) K/mcL Monocytes # 0.9 (0.0-1.3) K/mcL Eosinophils # 0.2 (0.0-0.6) K/mcL Basophils # 0.1 (0.0-0.2) K/mcL Sodium 139 (136-145) mEq/L Potassium 3.7 (3.5-5.1) mEq/L Chloride 105 (98-107) mEq/L Carbon Dioxide 25 (23-29) mEq/L BUN 14 (8-23) mg/dL Creatinine 1.00 (0.70-1.30) mg/dL Est GFR ( Amer) > 60 (> 60) Est GFR (Non-Af Amer) > 60 (> 60) BUN/Creatinine Ratio 14 (6-26) Glucose 161 H (70-105) mg/dL Calculated Osmolality 292 (280-300) Lactic Acid 1.7 (0.5-2.2) mmol/L Calcium 9.2 (8.6-10.3) mg/dL Troponin I 0.06 H* (< 0.04) ng/mL B-Natriuretic Peptide (Less than 100) pg/mL 12/18/18 Range/Units 16:30 WBC (4.3-11.1) K/mcL RBC (4.19-5.50) M/mcL Hgb (12.9-16.9) g/dL Hct (37.5-50.1) % MCV (83.0-100.0) fL MCH (28.0-33.3) pg MCHC (31.6-35.5) g/dL RDW (11.5-14.5) % Plt Count (140-400) K/mcL MPV (9.4-12.4) fL Immature Gran % (0-4) % Seg Neutrophils % % Lymphocytes % % Monocytes % % Eosinophils % % Basophils % % Neutrophils # (1.6-8.9) K/mcL Lymphocytes # (0.6-4.6) K/mcL Monocytes # (0.0-1.3) K/mcL Eosinophils # (0.0-0.6) K/mcL Basophils # (0.0-0.2) K/mcL Sodium (136-145) mEq/L Potassium (3.5-5.1) mEq/L Chloride (98-107) mEq/L Carbon Dioxide (23-29) mEq/L BUN (8-23) mg/dL Creatinine (0.70-1.30) mg/dL Est GFR ( Amer) (> 60) Est GFR (Non-Af Amer) (> 60) BUN/Creatinine Ratio (6-26) Glucose (70-105) mg/dL Calculated Osmolality (280-300) Lactic Acid (0.5-2.2) mmol/L Calcium (8.6-10.3) mg/dL Troponin I (< 0.04) ng/mL B-Natriuretic Peptide 26 (Less than 100) pg/mL - Radiology Data Radiology results reviewed: Yes I reviewed the patient's radiology results. Chest X-Ray 12/18/18 16:09 IMPRESSION: No radiographic evidence of acute cardiopulmonary disease. D/ / Marcellus Parra / Marcellus Parra Interpreting Provider: Marcellus Parra - EKG Data EKG #1 EKG attestation: Yes I reviewed and interpreted this EKG. EKG results narrative: HR 71, Rhythm sinus, axis left. KS 173. QRS 91. Qtc 414. No evidence of ST elevation or depression.
[2018-12-18 16:45] LABS: Basophils # 0.1 K/mcL (0.0-0.2); Basophils % 0.7 %; Eosinophils # 0.2 K/mcL (0.0-0.6); Eosinophils % 2.1 %; Hemoglobin 15.2 g/dL (12.9-16.9); Immature Granulocytes % 0.4 % (0-4); Lymphocytes # 2.5 K/mcL (0.6-4.6); Mean Corpuscular HGB Conc 33.8 g/dL (31.6-35.5); Mean Corpuscular Hemoglobin 31.1 pg (28.0-33.3); Mean Corpuscular Volume 92.2 fL (83.0-100.0); Mean Platelet Volume 10.5 fL (9.4-12.4); Monocytes # 0.9 K/mcL (0.0-1.3); Monocytes % 9.8 %; Neutrophils # 5.4 K/mcL (1.6-8.9); Platelet Count 236 K/mcL (140-400); Red Blood Count 4.88 M/mcL (4.19-5.50); Red Cell Distribution Width 12.3 % (11.5-14.5)
[2018-12-18 17:09] LABS: BUN/Creatinine Ratio 14 (6-26); Blood Urea Nitrogen 14 mg/dL (8-23); Calcium 9.2 mg/dL (8.6-10.3); Carbon Dioxide 25 mEq/L (23-29); Chloride 105 mEq/L (98-107); Glucose 161 mg/dL (70-105); Osmolality,Calculated 292 (280-300); Potassium 3.7 mEq/L (3.5-5.1); Sodium 139 mEq/L (136-145); eGFR For Non-African Americans > 60 (> 60)
[2018-12-18 17:21] LABS: Troponin I 0.06 ng/mL (< 0.04)
[2018-12-18] MEDS ORDERED: predniSONE 20 MG TABLET PO ONE (17:45)
[2018-12-18] MEDS ORDERED: Azithromycin 500 MG in D5% in Water 250 ML IVPB ONE (17:54)
[2018-12-18] MEDS ORDERED: traMADol 50 MG TABLET PO PRN (18:14)
[2018-12-18] MEDS ORDERED: Naloxone 0.4 MG/ML INJ IVP PRN (18:14)
[2018-12-18] MEDS ORDERED: Ipratropium/Albuterol Neb 3 ML IH PRN (18:16)
--- NOTE | 2018-12-18 18:21 | Internal Med History&Physical ---
Date of Encounter: 12/18/18 Time of Encounter: 18:19 Internal Medicine - H&P: HPI Admitted From: Home Plans for Post Hospital Care: Home History of present illness: Mr. Coleman is a 63 year old male with significant cardiac history including HTN, HLP, And CAD, and underlying COPD presenting with difficulty in breathing and weakness that has been steadily getting worse over the last 2 weeks. Patient was seen by his primary care physician 2 weeks ago for sinus symptoms and placed on amoxicillin, which she completed. Now he states that he feels the sinus infection is going down into his lungs, he has noted increased production of sputum that is now green and brown, including increased weakness and difficulty in ambulating. Patient denies fevers but endorses chills, also endorses headache, muscle aches, chest pain with coughing. Patient denies abdominal pain, nausea vomiting, diarrhea or constipation. Patient notes a smoking history 21 years ago but none since then and no alcohol for the last 10 years, and denies illicit or illegal drugs. At the ED, his vital signs were stable, Labs showed slightly elevated troponin, CXR is negative for PNA. his symptoms are concerning for COPD exacerbation and he will be admitted for further treatment. Code status discussed with pt and family, they expressed wish to be full code. Past Med Surg Social Fam HX - Past Medical History Medical history: arthritis, asthma, atrial fibrillation, COPD, coronary artery disease, GERD, GI bleed, hyperlipidemia, hypertension, myocardial infarction Additional medical history: hemorrhoids, ED, diverticulosis Psychiatric history: no psych history - Past Surgical History Surgical History: cholecystectomy, colectomy, colostomy, orthopedic, other, other Additional surgical history: rotator cuff tear, heart cath-no stents - Social History Smoking Status: Former smoker Smokeless Tobacco Status: No Alcohol use: none Drug use: none - Family History Mother Adopted: No Family Member Ethnicity: Non- Living Status: Hx Family Cardiac Disorders: Yes (CHF) Hx Family Respiratory Disorders: No Hx Family Cancer: No Hx Family GI Disorders: No Hx Family Endocrine Disorder: Yes (Goiter) Hx Family Neuromuscular Disorders: No Hx Family Neurologic Disorders: Yes (TIA's) Hx Family HEENT Disorders: No Hx Family Autoimmune Disorders: No Internal Medicine - H&P: Meds Pantoprazole Sodium 20 mg PO DAILY 06/16/18 [History] Amlodipine Besylate 2.5 mg PO DAILY 09/17/18 [History] Furosemide [Lasix] 20 mg PO DAILY 09/17/18 [History] Meloxicam 15 mg PO DAILY 09/17/18 [History] Allergy/AdvReac Type Severity Reaction Status Date / Time Krdatqo-Trc-Eds Reductase AdvReac Nausea Verified 09/17/18 10:28 Inhibitor [Statins] plastic tape Allergy Rash Uncoded 06/16/18 15:06 All Systems PM: A 10-system review of systems was performed and is negative for pertinent findings except as documented above in the HPI. Review of systems: REVIEW OF SYSTEMS: CONSTITUTIONAL: No weight loss, fever, chills, weakness or fatigue. HEENT: Eyes: No visual loss, blurred vision, double vision or yellow sclerae. Ears, Nose, Throat: No hearing loss, sneezing, congestion, runny nose or sore throat. SKIN: No rash or itching. CARDIOVASCULAR: No chest pain, chest pressure or chest discomfort. No palpitations or edema. RESPIRATORY: see HPI. GASTROINTESTINAL: No anorexia, nausea, vomiting or diarrhea. No abdominal pain or blood. GENITOURINARY: No dysuria, urgency, or frequency. NEUROLOGICAL: No headache, dizziness, syncope, paralysis, ataxia, numbness or tingling in the extremities. No change in bowel or bladder control. MUSCULOSKELETAL: No muscle, back pain, joint pain or stiffness. HEMATOLOGIC: No anemia, bleeding or bruising. LYMPHATICS: No enlarged nodes. No history of splenectomy. PSYCHIATRIC: No history of depression or anxiety. ENDOCRINOLOGIC: No reports of sweating, cold or heat intolerance. No polyuria or polydipsia. - Constitutional Vitals: Temp Pulse Resp BP Pulse Ox 98.2 F 73 16 141/75 97 12/18/18 16:00 12/18/18 18:08 12/18/18 18:08 12/18/18 18:08 12/18/18 18:08 General appearance: Present: cooperative, A&O X 3, answers questions appropriately Exam: PHYSICAL EXAMINATION: GENERAL APPEARANCE: The patient is alert, oriented and in no acute distress. HEENT: Head is normocephalic. The sinuses are nontender. Pupils are equal and reactive. The nares are patent. Oropharynx clear without lesions. NECK: Supple without lymphadenopathy. HEART: Regular rate and rhythm. LUNGS: Bilateral crackles or wheezes are heard. ABDOMEN: Soft, nontender, nondistended with good bowel sounds heard. Inguinal area is normal. EXTREMITIES: Without cyanosis, clubbing or edema. NEUROLOGICAL: Gross nonfocal. SKIN: Warm and dry without any rash. Internal Med - H&P Results - Labs CBC & Chem 7: 12/18/18 16:30 12/18/18 16:30 Labs: Short CBC 12/18/18 Range/Units 16:30 WBC 9.1 (4.3-11.1) K/mcL Hgb 15.2 (12.9-16.9) g/dL Hct 45.0 (37.5-50.1) % Plt Count 236 (140-400) K/mcL Neutrophils # 5.4 (1.6-8.9) K/mcL BMP 12/18/18 16:30 Sodium 139 Potassium 3.7 Chloride 105 Carbon Dioxide 25 BUN 14 Creatinine 1.00 Glucose 161 H Calcium 9.2 Cardiac Enzymes 12/18/18 Range/Units 16:30 Troponin I 0.06 H* (< 0.04) ng/mL - Impressions ITS Impressions Chest X-Ray 12/18/18 16:09 IMPRESSION: No radiographic evidence of acute cardiopulmonary disease. D/ / Marcellus Parra / Marcellus Parra Interpreting Provider: Marcellus Parra - Assessment and plan (1) COPD exacerbation Current Visit: Yes Status: Acute Assessment and plan: CXR no PNA, likely he ia having acute bronchitis. Hx of COPD but does not take any medication currently. will treat with IV abx, oral steroid and bronchodilators. pending blood cx. (2) HTN (hypertension) Current Visit: No Status: Chronic Assessment and plan: continue monitoring BP, resume home meds. Qualifiers: Hypertension type: essential hypertension Qualified Code(s): I10 - Essential (primary) hypertension (3) Elevated troponin Current Visit: Yes Status: Acute Assessment and plan: Pt has baseline trop elevation, current number is within baseline, No EKG ischemic changes, will continue cycling. (4) Coronary artery disease Current Visit: No Status: Chronic Assessment and plan: No chest pain, monitoring, continue home meds. Qualifiers: Coronary Disease-Associated Artery/Lesion type: [place] artery [place] vs. transplanted heart: [place] heart Associated angina: without angina Qualified Code(s): I25.10 - Atherosclerotic heart disease of [place] coronary artery wit hout angina pectoris (5) Hyperlipidemia Current Visit: No Status: Chronic Assessment and plan: continue home meds. Qualifiers: Hyperlipidemia type: unspecified Qualified Code(s): E78.5 - Hyperlipidemia, unspecified (6) DVT prophylaxis Current Visit: No Status: Chronic Assessment and plan: Heparin sq. - Time Spent With Patient Total time spent is greater than 50% in coordination of care (as documented) at patient's floor/unit and/or counseling patient: Greater than 35 minutes
[2018-12-18] MEDS: Ipratropium/Albuterol Neb 3 ML IH SCH ×2 (19:41→23:34)
[2018-12-18] MEDS: Acetaminophen 325 MG TABLET PO PRN (23:15)
[2018-12-19] MEDS: Ipratropium/Albuterol Neb 3 ML IH SCH ×6 (04:03→23:24)
[2018-12-19 05:46] LABS: BUN/Creatinine Ratio 16 (6-26); Blood Urea Nitrogen 15 mg/dL (8-23); Calcium 9.3 mg/dL (8.6-10.3); Carbon Dioxide 24 mEq/L (23-29); Chloride 107 mEq/L (98-107); Glucose 139 mg/dL (70-105); Osmolality,Calculated 293 (280-300); Potassium 3.9 mEq/L (3.5-5.1); Sodium 140 mEq/L (136-145); eGFR For Non-African Americans > 60 (> 60)
[2018-12-19 05:52] LABS: Troponin I 0.05 ng/mL (< 0.04)
[2018-12-19] MEDS: *HR* Heparin 5,000 UNIT/ML VIAL SQ SCH ×2 (06:18→18:24)
[2018-12-19] MEDS: Furosemide 20 MG TABLET PO SCH (08:06)
[2018-12-19] MEDS: predniSONE 20 MG TABLET PO SCH (08:06)
[2018-12-19] MEDS ORDERED: amLODIPine 5 MG TABLET PO SCH (09:00)
--- NOTE | 2018-12-19 09:25 | Internal Med Progress Note ---
Hospitalist Progress Note - Encounter Date of Encounter: 12/19/18 Time of Encounter: 09:22 - Subjective Interval History: Patient reported improved cough and shortness breath. He also coughed up greenish mucus this morning. Overnight, he has no fever, chills, or night sweats. - Exam Vitals: Temp Pulse Resp BP Pulse Ox 97.8 F 67 20 156/103 94 12/19/18 07:56 12/19/18 08:21 12/19/18 08:21 12/19/18 08:21 12/19/18 08:21 Exam: PHYSICAL EXAMINATION: GENERAL APPEARANCE: The patient is alert, oriented and in no acute distress. HEENT: Head is normocephalic. The sinuses are nontender. Pupils are equal and reactive. The nares are patent. Oropharynx clear without lesions. NECK: Supple without lymphadenopathy. HEART: Regular rate and rhythm. LUNGS: Bilateral crackles or wheezes are heard. ABDOMEN: Soft, nontender, nondistended with good bowel sounds heard. Inguinal area is normal. EXTREMITIES: Without cyanosis, clubbing or edema. NEUROLOGICAL: Gross nonfocal. SKIN: Warm and dry without any rash. - Assessment and Plan (1) COPD exacerbation Current Visit: Yes Status: Acute Assessment and Plan: 12/18 CXR no PNA, likely he ia having acute bronchitis. Hx of COPD but does not take any medication currently. will treat with IV abx, oral steroid and bronchodilators. pending blood cx. 12/19 Sputum culture sent this morning. Overall patient symptoms have improved. Continue current treatment. Anticipate discharge in the morning. (2) HTN (hypertension) Current Visit: No Status: Chronic Assessment and Plan: continue monitoring BP, resume home meds. (3) Elevated troponin Current Visit: Yes Status: Acute Assessment and Plan: Pt has baseline trop elevation, serial troponin flatted at 0.06. (4) Coronary artery disease Current Visit: No Status: Chronic Assessment and Plan: No chest pain, monitoring, continue home meds. (5) Hyperlipidemia Current Visit: No Status: Chronic Assessment and Plan: continue home meds. (6) DVT prophylaxis Current Visit: Yes Status: Acute Assessment and Plan: Heparin sq. - Time Spent with Patient Total time spent is greater than 50% in coordination of care (as documented) at patient's floor/unit and/or counseling patient: Greater than 35 minutes Plan of Care Discussed with: patient Internal Medicine: Result - Labs CBC & Chem 7: 12/18/18 16:30 12/19/18 03:58 Labs: Short CBC 12/18/18 Range/Units 16:30 WBC 9.1 (4.3-11.1) K/mcL Hgb 15.2 (12.9-16.9) g/dL Hct 45.0 (37.5-50.1) % Plt Count 236 (140-400) K/mcL Neutrophils # 5.4 (1.6-8.9) K/mcL BMP 12/18/18 12/19/18 16:30 03:58 Sodium 139 140 Potassium 3.7 3.9 Chloride 105 107 Carbon Dioxide 25 24 BUN 14 15 Creatinine 1.00 0.91 Glucose 161 H 139 H Calcium 9.2 9.3 Cardiac Enzymes 12/18/18 12/18/18 12/19/18 Range/Units 16:30 22:05 03:58 Troponin I 0.06 H* 0.06 H* 0.05 H* (< 0.04) ng/mL - Impressions Impressions Chest X-Ray 12/18/18 16:09 IMPRESSION: No radiographic evidence of acute cardiopulmonary disease. D/ / Marcellus Parra / Marcellus Parra Interpreting Provider: Marcellus Parra Consult Discharge Plan - Plan Referrals: Zakiya Franco, [employer] [Primary Care Provider] - (2) HTN (hypertension) Qualifiers: Hypertension type: essential hypertension Qualified Code(s): I10 - Essential (primary) hypertension (4) Coronary artery disease Qualifiers: Coronary Disease-Associated Artery/Lesion type: [place] artery [place] vs. transplanted heart: [place] heart Associated angina: without angina Qualified Code(s): I25.10 - Atherosclerotic heart disease of [place] coronary artery without angina pectoris (5) Hyperlipidemia Qualifiers: Hyperlipidemia type: unspecified Qualified Code(s): E78.5 - Hyperlipidemia, unspecified
[2018-12-19 13:16] LABS: Adenovirus Not Detected (Not Detect); Coronavirus 229E Not Detected (Not Detect); Coronavirus HKU1 Not Detected (Not Detect); Coronavirus NL63 Not Detected (Not Detect); Coronavirus OC43 Not Detected (Not Detect); Human Metapneumovirus Not Detected (Not Detect); Human Rhinovirus/Enterovirus Not Detected (Not Detect); Influenza A Subtype 2009 H1 Not Detected (Not Detect); Influenza A Untypeable Not Detected (Not Detect); Influenza B Not Detected (Not Detect); Parainfluenza Virus 1 Not Detected (Not Detect); Parainfluenza Virus 2 Not Detected (Not Detect); Parainfluenza Virus 3 Not Detected (Not Detect); Parainfluenza Virus 4 Not Detected (Not Detect); Respiratory Syncytial Virus Not Detected (Not Detect)
[2018-12-19 13:17] LABS: Bordetella Pertussis Not Detected (Not Detect); Chlamydophila pneumoniae Not Detected (Not Detect); Mycoplasma pneumoniae Not Detected (Not Detect)
[2018-12-19] MEDS: amLODIPine 5 MG TABLET PO SCH (15:42)
[2018-12-19] MEDS ORDERED: Azithromycin 500 MG in D5% in Water 250 ML IVPB SCH (18:00)
[2018-12-20] MEDS: Ipratropium/Albuterol Neb 3 ML IH SCH ×3 (03:36→10:56)
[2018-12-20] MEDS: *HR* Heparin 5,000 UNIT/ML VIAL SQ SCH (05:30)
[2018-12-20] MEDS: predniSONE 20 MG TABLET PO SCH (07:49)
[2018-12-20] MEDS: Acetaminophen 325 MG TABLET PO PRN (07:49)
[2018-12-20] MEDS: Furosemide 20 MG TABLET PO SCH (07:49)
[2018-12-20] MEDS: amLODIPine 5 MG TABLET PO SCH (07:49)
[2018-12-20] MEDS ORDERED: GuaiFENesin/Codeine Oral Soln 5 ML UDC PO PRN (09:23)
--- NOTE | 2018-12-20 09:54 | Discharge Summary ---
Date of Encounter: 12/20/18 Time of Encounter: 09:49 - Discharge Diagnosis (1) COPD exacerbation Priority: Primary Status: Acute (2) Elevated troponin Priority: Secondary Status: Chronic (3) Coronary artery disease Priority: Secondary Status: Chronic Qualifiers: Coronary Disease-Associated Artery/Lesion type: [place] artery [place] vs. transplanted heart: [place] heart Associated angina: without angina Qualified Code(s): I25.10 - Atherosclerotic heart disease of [place] coronary artery without angina pectoris (4) HTN (hypertension) Priority: Secondary Status: Chronic Qualifiers: Hypertension type: essential hypertension Qualified Code(s): I10 - Essential (primary) hypertension Hospital course: Mr. Coleman is a 63 year old male w/ PMHx of HTN, HLID, CAD, Chronic troponin elevation, COPD not on home nebs admitted with COPD exacerbation. Pt placed on Prednisone, started on IV Azithromycin and ATC nebs. CXR negative for PNA. Pt also noted to have mild elevation in troponnin which is chronic and at baseline. Pt improved significantly and is medically stable to be discharged home Discharge discussed with: patient - Time Spent with Patient Total time spent providing and/or coordinating discharge services: Less than 30 minutes - Discharge Medications Prescriptions: predniSONE [Prednisone] See Taper PO DAILY #20 [email or web address] Home Medications: Pantoprazole Sodium 20 mg PO DAILY 06/16/18 [History] Furosemide [Lasix] 20 mg PO Q48H 09/17/18 [History] Amlodipine Besylate 5 mg PO DAILY 12/19/18 [History] Aspirin [Adult Aspirin] 81 mg PO DAILY 12/19/18 [History] Isosorbide MONOnitrate [Isosorbide Mononitrate] 10 mg PO BID 12/19/18 [History] Multivit-Min/Folic/Vit K/Lycop [Men's Multivitamin Tablet] 1 each PO DAILY 12/19/18 [History] Azithromycin 250 mg PO DAILY #3 tablet 12/20/18 [Rx] predniSONE [Prednisone] See Taper PO DAILY #20 [email or web address] 12/20/18 [Rx] Allergies/Adverse Reactions: Allergy/AdvReac Type Severity Reaction Status Date / Time [id number] Reductase AdvReac Nausea Verified 09/17/18 10:28 Inhibitor [Statins] plastic tape Allergy Rash Uncoded 06/16/18 15:06 Date of admission: 12/18/18 18:07 Primary care physician: Zakiya Franco CNP Consults: 12/19/18 12:32 Consult to Nurse Navigator [CONS] Routine Comment: COPD - Constitutional Vitals: Temp Pulse Resp BP Pulse Ox 97.8 F 76 16 139/84 93 12/20/18 07:38 12/20/18 07:38 12/20/18 07:38 12/20/18 07:38 12/20/18 07:39 General appearance: Present: cooperative, A&O X 3, answers questions elvis ropriately Exam: General - Sitting up in bed, NAD HEENT - NC/AT, PERRLA, MMM Neck - supple, no LN Lungs - mild basilar wheezes CVA - RRR, nl s1, s2 Abd - Soft NT/ND, BS+ Ext - no edema - Patient Status Disposition: Home, Self-Care Condition: Good - Discharge Instructions Instructions: Chronic Obstructive Pulmonary Disease (DC) Follow Up With: Zakiya Franco CNP [Primary Care Provider] - - Diet and Activity Activity: increase activity as tolerated Diet: advance to your usual diet
[2018-12-20 11:24] VITALS: BP 128/65
--- NOTE | 2018-12-20 17:17 | Electrocardiograph Report ---
[place] [id number] Test Date: 2018-12-18 Pat Name: Yoli Coleman Department: EXAM10 Room: 2NE25 Gender: M [employer]: : 1955 Requested By: Jose Pinead Order Number: [id number] Reading MD: Nic Penn Measurements Intervals [place] Rate: 71 P: 51 MD: 173 QRS: -27 QRSD: 91 T: 56 QT: 381 QTc: 414 Interpretive Statements Sinus rhythm Low voltage, precordial leads Electronically Signed On 12-20-2018 17:16:18 EST by Nic Penn
== END 2018-12-20 13:40 | disposition home or self-care (01) ==
LOC: EMEROOARM 15:58 → 2NENU 15:58 → SUATTDRO 18:07 → 2NENU 18:52
PROVIDERS: ADMIT Internal Medicine; ATTEND Hospitalist

== ENCOUNTER 2019-08-30 06:24 | Observation (INO) ==
[2019-08-30] MEDS ORDERED: Ropivacaine/PF 0.5% 30 ML VIAL ONE (06:47)
[2019-08-30] MEDS ORDERED: CeFAZolin Syr 2,000MG/20 ML 2,000 MG/20 ML SYRINGE IVPB ONE (07:00)
[2019-08-30] MEDS ORDERED: Albuterol 2.5 MG/3 ML NEBULIZER IH PRN ×2 (07:00→11:41)
[2019-08-30] MEDS ORDERED: Ringers Solution, Lactated 1,000 ML IVC SCH ×2 (07:00→11:41)
[2019-08-30] MEDS ORDERED: ROPIVACAINE/PF/NS 0.25% 1 EACH SYRINGE INTRAART ONE (07:21)
[2019-08-30] MEDS ORDERED: *HR* Propofol 200 MG/20 ML VIAL IVP ONE (07:22)
[2019-08-30] MEDS ORDERED: *HR* FentaNYL (PF) 100 MCG/2 ML VIAL ONE (07:22)
[2019-08-30] MEDS ORDERED: Lidocaine -MPF 2% 2 ML VIAL ONE (07:22)
[2019-08-30] MEDS ORDERED: Lidocaine HCL 4 ML Topical Solution (Laryng-O-Jet Kit Sterile Pak) TP ONE (07:22)
[2019-08-30] MEDS ORDERED: *HR* Midazolam HCl 2 MG/2 ML VIAL ONE (07:22)
[2019-08-30] MEDS ORDERED: *HR* PHENYLEPHRINE 1,000 MCG/10 ML SYRINGE IVP ONE ×2 (07:22→07:38)
[2019-08-30] MEDS ORDERED: Ondansetron 4 MG/2 ML VIAL ONE ×2 (07:22→08:29)
[2019-08-30] MEDS ORDERED: Dexamethasone 4 MG/ML VIAL ONE ×2 (07:22→08:29)
[2019-08-30] MEDS ORDERED: *HR* Succinylcholine 200 MG/10 ML VIAL IVP ONE (07:22)
[2019-08-30] MEDS ORDERED: *HR* Rocuronium Bromide 50 MG/5 ML VIAL ONE (07:22)
[2019-08-30] MEDS ORDERED: Gabapentin 300 MG CAPSULE PO ONE (07:25)
[2019-08-30] MEDS ORDERED: Celecoxib 200 MG CAPSULE PO ONE (07:25)
[2019-08-30] MEDS ORDERED: *HR* OxyCODONE Immed Rel 5 MG TABLET PO ONE (07:28)
[2019-08-30] MEDS ORDERED: *HR* OxyCODONE Immed Rel 5 MG TABLET PO PRN ×2 (07:29→11:41)
[2019-08-30] MEDS ORDERED: *HR* Promethazine 25 MG/ML VIAL IVP PRN ×2 (07:29→11:41)
[2019-08-30] MEDS ORDERED: Ondansetron 4 MG/2 ML VIAL IVP ONE (07:29)
[2019-08-30] MEDS ORDERED: *HR* HYDROmorphone (PF) 1 MG/ML SYRINGE IVP PRN (07:29)
[2019-08-30] MEDS ORDERED: Ethanol\\Acetic Acid\\Na Ace\\Ben 1,000 ML IRRIG.SOLN IR ONE (07:40)
[2019-08-30] MEDS ORDERED: Total Joint Mixture (50 ml) IR ONE (08:20)
[2019-08-30] MEDS ORDERED: Propofol 500 MG/50 ML INFUS..BTL ONE (08:22)
[2019-08-30] MEDS ORDERED: Tranexamic Acid 1,000 MG/10 ML VIAL ONE (08:29)
[2019-08-30] MEDS ORDERED: EPHEDrine 50 MG/ML VIAL ONE (08:54)
[2019-08-30 10:27] LABS: Hematocrit 44.5 % (37.5-50.1); Hemoglobin 14.7 g/dL (12.9-16.9)
[2019-08-30] MEDS ORDERED: LYCOP PO SCH (11:41)
[2019-08-30] MEDS ORDERED: Temazepam 15 MG CAPSULE PO PRN (11:41)
[2019-08-30] MEDS ORDERED: Ondansetron 4 MG/2 ML VIAL IVP PRN (11:41)
[2019-08-30] MEDS ORDERED: traMADol 50 MG TABLET PO PRN (11:41)
[2019-08-30] MEDS ORDERED: MOM Conc 10 ML UD.LIQ PO PRN (11:41)
[2019-08-30] MEDS ORDERED: MULTIVIT MIN PO SCH (11:41)
[2019-08-30] MEDS ORDERED: Naloxone 0.4 MG/ML INJ IVP PRN (11:41)
[2019-08-30] MEDS ORDERED: [UNRECOGNIZED DRUG - OTHER] PO SCH (11:41)
[2019-08-30] MEDS ORDERED: VIT K PO SCH (11:41)
[2019-08-30] MEDS ORDERED: Sennosides 8.6 MG TABLET PO PRN (11:41)
[2019-08-30] MEDS ORDERED: HYDROcodone BIT/Homatropine 5 MG TABLET PO PRN (11:41)
[2019-08-30] MEDS ORDERED: FOLIC PO SCH (11:41)
[2019-08-30] MEDS: ISOSORBIDE MONONITRATE 10 MG PO SCH (13:15)
[2019-08-30] MEDS: Furosemide 20 MG TABLET PO SCH (13:15)
[2019-08-30] MEDS: Aspirin Enteric Coated 81 MG Tablet PO SCH (13:20)
[2019-08-30] MEDS: Multivit/Ca/Min/Fe/FA 1 TAB TABLET PO SCH (13:20)
[2019-08-30] MEDS ORDERED: FLU Vac QV 19-20 (6Month+)/PF 0.5 ML SYRINGE IM ONE (13:39)
[2019-08-30] MEDS: Ascorbic Acid 500 MG TABLET PO SCH (16:55)
[2019-08-30] MEDS: ceFAZolin 3,000 MG in 0.9 % Sodium Chloride 100 ML IVPB SCH (16:57)
[2019-08-31] MEDS: ceFAZolin 3,000 MG in 0.9 % Sodium Chloride 100 ML IVPB SCH (00:04)
[2019-08-31 05:44] LABS: Basophils % 0.1 %; Hematocrit 43.2 % (37.5-50.1); Hemoglobin 14.3 g/dL (12.9-16.9); Immature Granulocytes % 0.5 % (0-4); Lymphocytes # 1.1 K/mcL (0.6-4.6); Lymphocytes % 5.9 %; Mean Corpuscular HGB Conc 33.1 g/dL (31.6-35.5); Mean Corpuscular Hemoglobin 32.2 pg (28.0-33.3); Mean Corpuscular Volume 97.3 fL (83.0-100.0); Mean Platelet Volume 11.2 fL (9.4-12.4); Monocytes # 0.9 K/mcL (0.0-1.3); Monocytes % 4.7 %; Neutrophils # 16.2 K/mcL (1.6-8.9); Platelet Count 218 K/mcL (140-400); Red Blood Count 4.44 M/mcL (4.19-5.50); Red Cell Distribution Width 12.1 % (11.5-14.5); Segmented Neutrophils % 88.8 %; White Blood Count 18.3 K/mcL (4.3-11.1)
[2019-08-31 06:01] LABS: BUN/Creatinine Ratio 19 (6-26); Blood Urea Nitrogen 17 mg/dL (8-23); Calcium 9.1 mg/dL (8.6-10.3); Carbon Dioxide 24 mEq/L (23-29); Chloride 106 mEq/L (98-107); Glucose 163 mg/dL (70-105); Osmolality,Calculated 295 (280-300); Potassium 4.2 mEq/L (3.5-5.1); Sodium 140 mEq/L (136-145); eGFR For African Americans > 60 (> 60); eGFR For Non-African Americans > 60 (> 60)
[2019-08-31] MEDS: Ascorbic Acid 500 MG TABLET PO SCH ×2 (09:02→17:15)
[2019-08-31] MEDS: Aspirin Enteric Coated 81 MG Tablet PO SCH (09:03)
[2019-08-31] MEDS: Furosemide 20 MG TABLET PO SCH (09:03)
[2019-08-31] MEDS: Multivit/Ca/Min/Fe/FA 1 TAB TABLET PO SCH (09:03)
[2019-08-31] MEDS: *HR* Enoxaparin 30 MG/0.3 ML SYRINGE SQ SCH ×2 (09:03→17:15)
[2019-08-31] MEDS: ISOSORBIDE MONONITRATE 10 MG PO SCH (09:04)
[2019-08-31] MEDS ORDERED: *HR* OxyCODONE Immed Rel 5 MG TABLET PO PRN (11:06)
[2019-08-31] MEDS: Tiotropium 18 MCG inhalation IH SCH (11:46)
[2019-09-01] MEDS: *HR* Enoxaparin 30 MG/0.3 ML SYRINGE SQ SCH (05:07)
[2019-09-01 05:26] LABS: Basophils % 0.2 %; Eosinophils # 0.1 K/mcL (0.0-0.6); Eosinophils % 0.3 %; Hematocrit 39.8 % (37.5-50.1); Immature Granulocytes % 0.6 % (0-4); Lymphocytes # 2.3 K/mcL (0.6-4.6); Lymphocytes % 13.6 %; Mean Corpuscular HGB Conc 32.7 g/dL (31.6-35.5); Mean Corpuscular Hemoglobin 31.9 pg (28.0-33.3); Mean Corpuscular Volume 97.8 fL (83.0-100.0); Mean Platelet Volume 10.9 fL (9.4-12.4); Monocytes # 1.5 K/mcL (0.0-1.3); Monocytes % 8.8 %; Neutrophils # 12.6 K/mcL (1.6-8.9); Platelet Count 199 K/mcL (140-400); Red Blood Count 4.07 M/mcL (4.19-5.50); Red Cell Distribution Width 12.7 % (11.5-14.5); Segmented Neutrophils % 76.5 %; White Blood Count 16.5 K/mcL (4.3-11.1)
[2019-09-01 05:46] LABS: BUN/Creatinine Ratio 25 (6-26); Blood Urea Nitrogen 21 mg/dL (8-23); Calcium 8.7 mg/dL (8.6-10.3); Carbon Dioxide 26 mEq/L (23-29); Chloride 108 mEq/L (98-107); Glucose 126 mg/dL (70-105); Osmolality,Calculated 301 (280-300); Potassium 4.2 mEq/L (3.5-5.1); Sodium 143 mEq/L (136-145); eGFR For African Americans > 60 (> 60); eGFR For Non-African Americans > 60 (> 60)
[2019-09-01 07:16] VITALS: BP 121/76
[2019-09-01] MEDS: Tiotropium 18 MCG inhalation IH SCH (07:20)
[2019-09-01] MEDS: Aspirin Enteric Coated 81 MG Tablet PO SCH (08:28)
[2019-09-01] MEDS: Multivit/Ca/Min/Fe/FA 1 TAB TABLET PO SCH (08:28)
[2019-09-01] MEDS: Furosemide 20 MG TABLET PO SCH (08:29)
[2019-09-01] MEDS: Ascorbic Acid 500 MG TABLET PO SCH (08:29)
[2019-09-01] MEDS ORDERED: FLU Vac QV 19-20 (6Month+)/PF 0.5 ML SYRINGE IM ONE (12:18)
== END 2019-09-01 14:25 | disposition home health service (06) ==
LOC: 3NENU 06:24 → SAMDAY 06:24 → 3NENU 12:36
PROVIDERS: ADMIT Orthopaedic Surgery; ATTEND Orthopaedic Surgery

== ENCOUNTER 2019-11-08 17:37 | Observation (INO) ==
[2019-11-08 19:14] LABS: Basophils # 0.1 K/mcL (0.0-0.2); Basophils % 0.5 %; Eosinophils # 0.2 K/mcL (0.0-0.6); Eosinophils % 1.6 %; Hematocrit 46.2 % (37.5-50.1); Hemoglobin 15.6 g/dL (12.9-16.9); Immature Granulocytes % 0.5 % (0-4); Mean Corpuscular HGB Conc 33.8 g/dL (31.6-35.5); Mean Corpuscular Hemoglobin 31.7 pg (28.0-33.3); Mean Corpuscular Volume 93.9 fL (83.0-100.0); Mean Platelet Volume 10.4 fL (9.4-12.4); Monocytes # 0.8 K/mcL (0.0-1.3); Monocytes % 8.9 %; Neutrophils # 6.3 K/mcL (1.6-8.9); Platelet Count 249 K/mcL (140-400); Red Blood Count 4.92 M/mcL (4.19-5.50); Red Cell Distribution Width 12.6 % (11.5-14.5); Segmented Neutrophils % 67.5 %; White Blood Count 9.3 K/mcL (4.3-11.1)
[2019-11-08 19:50] LABS: Troponin I 0.05 ng/mL (< 0.04)
[2019-11-08] MEDS ORDERED: Aspirin 81 MG TAB.CHEW PO STA (19:55)
[2019-11-08 20:03] LABS: BUN/Creatinine Ratio 13 (6-26); Blood Urea Nitrogen 12 mg/dL (8-23); Calcium 9.6 mg/dL (8.6-10.3); Carbon Dioxide 27 mEq/L (23-29); Chloride 104 mEq/L (98-107); Glucose 96 mg/dL (70-105); Osmolality,Calculated 292 (280-300); Sodium 141 mEq/L (136-145); eGFR For African Americans > 60 (> 60); eGFR For Non-African Americans > 60 (> 60)
[2019-11-08] MEDS ORDERED: Isovue-370 500 ML BOTTLE IVP ONE (23:32)
[2019-11-09] MEDS ORDERED: Nitroglycerin 0.4 MG TAB.SUBL SL PRN (01:16)
[2019-11-09] MEDS ORDERED: Albuterol 2.5 MG/3 ML NEBULIZER IH PRN (01:17)
[2019-11-09] MEDS ORDERED: Ondansetron 4 MG/2 ML VIAL IVP PRN (01:19)
[2019-11-09] MEDS ORDERED: Naloxone 0.4 MG/ML INJ IVP PRN (01:19)
[2019-11-09 01:56] LABS: Hematocrit 45.7 % (37.5-50.1); Hemoglobin 15.2 g/dL (12.9-16.9); Mean Corpuscular HGB Conc 33.3 g/dL (31.6-35.5); Mean Corpuscular Hemoglobin 31.7 pg (28.0-33.3); Mean Corpuscular Volume 95.4 fL (83.0-100.0); Mean Platelet Volume 10.7 fL (9.4-12.4); Platelet Count 238 K/mcL (140-400); Red Blood Count 4.79 M/mcL (4.19-5.50); Red Cell Distribution Width 12.6 % (11.5-14.5); White Blood Count 9.1 K/mcL (4.3-11.1)
[2019-11-09 02:15] LABS: BUN/Creatinine Ratio 12 (6-26); Blood Urea Nitrogen 11 mg/dL (8-23); Calcium 9.1 mg/dL (8.6-10.3); Carbon Dioxide 28 mEq/L (23-29); Chloride 104 mEq/L (98-107); Chol/HDL Ratio 5.3 (0-4.9); Cholesterol 195 mg/dL (< 200); Glucose 103 mg/dL (70-105); HDL Cholesterol 37 mg/dL (40-59); LDL Cholesterol,Calculated 129 mg/dL (0-99); Magnesium 2.1 mg/dL (1.6-2.6); Osmolality,Calculated 288 (280-300); Potassium 3.8 mEq/L (3.5-5.1); Sodium 139 mEq/L (136-145); Triglycerides 144 mg/dL (< 150); eGFR For African Americans > 60 (> 60); eGFR For Non-African Americans > 60 (> 60)
[2019-11-09] MEDS: Artificial Tears SOLN 15 ML BOTTLE BOTH EYES SCH ×3 (04:58→13:27)
[2019-11-09] MEDS ORDERED: *HR* Heparin 5,000 UNIT/ML VIAL SQ SCH (06:00)
[2019-11-09 08:53] LABS: Estimated Average Glucose 117 mg/dl
[2019-11-09] MEDS ORDERED: Furosemide 20 MG TABLET PO SCH (09:00)
[2019-11-09] MEDS ORDERED: Aspirin Enteric Coated 81 MG Tablet PO SCH (09:00)
[2019-11-09 15:09] VITALS: BP 137/75
== END 2019-11-09 15:25 | disposition home or self-care (01) ==
LOC: CDU 17:37 → EMEROOARM 17:37 → SUATTDRO 23:27 → CDU 11-09 00:50
PROVIDERS: ADMIT Internal Medicine; ATTEND Internal Medicine

== ENCOUNTER 2020-07-06 17:49 | Observation (INO) ==
[2020-07-06 18:33] LABS: Basophils % 0.5 %; Eosinophils # 0.1 K/mcL (0.0-0.6); Eosinophils % 1.7 %; Hematocrit 45.5 % (37.5-50.1); Hemoglobin 14.7 g/dL (12.9-16.9); Immature Granulocytes % 0.2 % (0-4); Lymphocytes # 1.9 K/mcL (0.6-4.6); Lymphocytes % 22.9 %; Mean Corpuscular HGB Conc 32.3 g/dL (31.6-35.5); Mean Corpuscular Hemoglobin 31.1 pg (28.0-33.3); Mean Corpuscular Volume 96.4 fL (83.0-100.0); Mean Platelet Volume 10.6 fL (9.4-12.4); Monocytes # 0.6 K/mcL (0.0-1.3); Monocytes % 7.5 %; Neutrophils # 5.5 K/mcL (1.6-8.9); Platelet Count 234 K/mcL (140-400); Red Blood Count 4.72 M/mcL (4.19-5.50); Red Cell Distribution Width 12.6 % (11.5-14.5); Segmented Neutrophils % 67.2 %; White Blood Count 8.2 K/mcL (4.3-11.1)
[2020-07-06 18:53] LABS: BUN/Creatinine Ratio 21 (6-26); Blood Urea Nitrogen 20 mg/dL (8-23); Calcium 9.3 mg/dL (8.6-10.3); Carbon Dioxide 25 mEq/L (23-29); Chloride 107 mEq/L (98-107); Glucose 158 mg/dL (70-105); Magnesium 2.1 mg/dL (1.6-2.6); Osmolality,Calculated 294 (280-300); Potassium 3.9 mEq/L (3.5-5.1); Sodium 139 mEq/L (136-145); eGFR For African Americans > 60 (> 60); eGFR For Non-African Americans > 60 (> 60)
[2020-07-06 18:54] LABS: Troponin I 0.03 ng/mL (< 0.04)
[2020-07-06 19:09] LABS: Bilirubin,Urine Negative (Negative); Blood,Urine Negative (Negative); Clarity,Urine Clear (Clear); Color,Urine Colorless (Yellow); Glucose,Urine (UA) 70 mg/dL (Normal); Ketones,Urine Negative (Negative); Leukocyte Esterase,Urine Negative (Negative); Nitrite,Urine Negative (Negative); Protein,Urine Negative (Neg-Trace); RBC,Urine 0-3 per hpf (0-3); Specific Gravity,Urine 1.011 (1.010-1.025); Urobilinogen,Urine Normal (Normal); WBC,Urine 0-3 per hpf (0-3)
[2020-07-06] MEDS ORDERED: 0.9 % Sodium Chloride 500 ML IVC ONE (20:24)
[2020-07-06] MEDS ORDERED: Naloxone 0.4 MG/ML INJ IVP PRN (21:03)
[2020-07-06] MEDS ORDERED: Ondansetron 4 MG/2 ML VIAL IVP PRN (21:03)
[2020-07-06] MEDS ORDERED: Perflutren Lipid Microsphere 1.3 ML in 0.9 % Sodium Chloride 8.7 ML IVP PRN (21:05)
[2020-07-06] MEDS ORDERED: 0.9 % Sodium Chloride 1,000 ML IVC SCH (21:15)
[2020-07-07 00:52] LABS: Basophils # 0.1 K/mcL (0.0-0.2); Basophils % 0.7 %; Eosinophils # 0.2 K/mcL (0.0-0.6); Eosinophils % 2.6 %; Hematocrit 42.1 % (37.5-50.1); Hemoglobin 13.9 g/dL (12.9-16.9); Immature Granulocytes % 0.3 % (0-4); Lymphocytes # 2.3 K/mcL (0.6-4.6); Lymphocytes % 30.2 %; Mean Platelet Volume 10.8 fL (9.4-12.4); Monocytes # 0.8 K/mcL (0.0-1.3); Monocytes % 10.6 %; Neutrophils # 4.3 K/mcL (1.6-8.9); Platelet Count 207 K/mcL (140-400); Red Blood Count 4.34 M/mcL (4.19-5.50); Red Cell Distribution Width 12.7 % (11.5-14.5); Segmented Neutrophils % 55.6 %; White Blood Count 7.6 K/mcL (4.3-11.1)
[2020-07-07 01:10] LABS: Alanine Aminotransferase 18 Units/L (7-52); Albumin 3.8 g/dL (3.5-5.7); Albumin/Globulin Ratio 1.7 (1.1-2.2); Alkaline Phosphatase 63 Units/L (34-104); Aspartate Amino Transferase 16 Units/L (13-39); BUN/Creatinine Ratio 17 (6-26); Bilirubin,Total 0.5 mg/dL (0.3-1.0); Blood Urea Nitrogen 15 mg/dL (8-23); Calcium 8.8 mg/dL (8.6-10.3); Carbon Dioxide 24 mEq/L (23-29); Chloride 110 mEq/L (98-107); Globulin 2.2 g/dL (2.4-3.5); Glucose 109 mg/dL (70-105); Osmolality,Calculated 293 (280-300); Potassium 3.9 mEq/L (3.5-5.1); Sodium 141 mEq/L (136-145); eGFR For African Americans > 60 (> 60); eGFR For Non-African Americans > 60 (> 60)
[2020-07-07 08:08] LABS: Estimated Average Glucose 131 mg/dl
[2020-07-07] MEDS ORDERED: Acetaminophen 325 MG TABLET PO PRN (11:52)
[2020-07-07] MEDS ORDERED: Albuterol 2.5 MG/3 ML NEBULIZER IH PRN (13:11)
[2020-07-07 14:57] VITALS: BP 156/73
[2020-07-07] MEDS ORDERED: ISOSORBIDE MONONITRATE 5 MG PO SCH (21:00)
[2020-07-08] MEDS ORDERED: Furosemide 20 MG TABLET PO SCH (09:00)
[2020-07-08] MEDS ORDERED: Multivit/Ca/Min/Fe/FA 1 TAB TABLET PO SCH (09:00)
[2020-07-08] MEDS ORDERED: Aspirin Enteric Coated 81 MG Tablet PO SCH (09:00)
== END 2020-07-07 15:45 | disposition home or self-care (01) ==
LOC: EMEROOARM 17:49 → 3BNU 17:49 → SUATTDRO 20:36 → 3BNU 21:15
PROVIDERS: ADMIT Student in an Organized Health Care Education/Training Program; ATTEND Nurse Practitioner Adult Health